=== PATIENT | male | born 1935 | race Caucasian/White ===

== ENCOUNTER 2020-12-12 19:26 | Emergency (ER) | payer OTHER, MEDICARE ==
[2020-12-12] MEDS ORDERED: Sodium Chloride 0.9% 10 ML Syringe FLUSH PRN (19:41)
[2020-12-12] MEDS ORDERED: fentaNYL 100 MCG/2 ML SDV IVPUSH ONE (19:54)
--- NOTE | 2020-12-12 20:04 | EDM.PDOC ---
ED HPI GENERAL MEDICAL PROBLEM - General Stated Complaint: FALL Time Seen by Provider: 12/12/20 19:37 Source of Information: Reports: Patient, Family - History of Present Illness INITIAL COMMENTS - FREE TEXT/NARRATIVE: Brian is an 85 y/o male who is brought to the ER after he fell. He tripped and fell and hit his head on the right frontal region. He has poor vision and he tripped when he ran into a [employer] trailer. No LOC. His daughter reports helping him up, but he could not bear weight on the left leg so she made him come to the ER. He is on Coumadin. Left hip/groin Pain Score (Numeric/FACES): 2 - Related Data Allergies Allergy/AdvReac Type Severity Reaction Status Date / Time No Known Allergies Allergy Verified 12/12/20 21:01 Home Meds: Home Meds . [Unable to Verify Home Med List] 12/12/20 [History] Review of Systems - Review of Systems Review Of Systems: See Below Constitutional: Reports: No Symptoms Eyes: Reports: No Symptoms Ears: Reports: No Symptoms, Clear Discharge Nose: Reports: No Symptoms Mouth/Throat: Reports: No Symptoms Respiratory: Reports: No Symptoms Cardiovascular: Reports: No Symptoms GI/Abdominal: Reports: No Symptoms Genitourinary: Reports: No Symptoms Musculoskeletal: Reports: Joint Pain (left hip) Skin: Reports: No Symptoms Neurological: Reports: No Symptoms Psychiatric: Reports: No Symptoms ED EXAM, GENERAL - Physical Exam Exam: See Below Exam Limited By: No Limitations General Appearance: Alert, WD/WN, No Apparent Distress (Elderly male, pleasant. He is lying quietly on the ER cart.) Eye Exam: Bilateral Eye: PERRL Ears: Hearing Grossly Normal Nose: Normal Inspection, Normal Mucosa Throat/Mouth: Normal Inspection, Normal Lips, Normal Voice Head: Atraumatic, Normocephalic Neck: Normal Inspection, Supple Respiratory/Chest: No Respiratory Distress, Lungs Clear, Chest Non-Tender Cardiovascular: Normal Peripheral Pulses, Regular Rate, Rhythm GI/Abdominal: Normal Bowel Sounds, Soft, Non-Tender (Male) Exam: Deferred Rectal (Males) Exam: Deferred Back Exam: Normal Inspection Extremities: Other (note left leg shortened and left foot is exteranlly rotated when compared to the right, pain with movment) Neurological: Alert, Oriented, CN II-XII Intact, No Motor/Sensory Deficits Psychiatric: Normal Affect Skin Exam: Warm, Dry, Intact, Normal Color Course - Vital Signs Text/Narrative:: 1936 The patient was seen by the GRA[facility]. Labs and Diagnostic Imaging ordered. He was given Fentanyl 25 mcg IVP for pain. 2014 Labs reviewed. CTs pending. 2041 [facility] contacted and notified of patient arrival in ER and diagnosis of left femoral neck fracture. Advised to find appropriate ER for patient transfer. 2049 [facility] contacted. Case presented. Dr Trujillo accepted the patient for direct admission to [facility]. Patient and daughter in agreement with plan of care. 2124 He was given Morphine 2mg IVP prior to departure for [place]. Patient remained stable in the ER while waiting for a room assignment at [facility] then departing with [facility]. Last Recorded V/S: Last Vital Signs Temp 36.3 C 12/12/20 19:26 Pulse 84 12/12/20 19:26 Resp 16 12/12/20 19:26 BP 140/82 12/12/20 19:26 Pulse Ox 99 12/12/20 19:26 - Orders/Labs/Meds Orders: Active Orders 24 hr Category Date Time Status Head wo Cont [CT] Stat Exams 12/12/20 19:43 Taken Hip Min 1V w Pelvis Lt [CR] Stat Exams 12/12/20 19:42 Stop Req Pelvis wo Cont [CT] Stat Exams 12/12/20 19:50 Taken Sodium Chloride 0.9% [Saline Flush] Med 12/12/20 19:41 Active 10 ml FLUSH ASDIRECTED PRN Saline Lock Insert [OM.PC] Stat Oth 12/12/20 19:42 Ordered Medication Orders Sodium Chloride (Sodium Chloride 0.9% 10 Ml Syringe) 10 ml FLUSH ASDIRECTED PRN PRN Reason: Keep Vein Open Labs: Laboratory Tests 12/12/20 12/12/20 12/12/20 Range/Units 19:51 19:51 19:51 WBC 12.5 H (4.0-10.0) x10^3/uL RBC 4.65 (4.5-6.0) x10^6/uL Hgb 14.4 (14.0-18.0) g/dL Hct 42.0 (40.0-52.0) % MCV 90.3 (78.0-93.0) fL MCH 31.0 (26.0-32.0) pg MCHC 34.3 (32.0-36.0) g/dL RDW Coeff of Latosha 12.6 (10.0-15.0) % Plt Count 174 (130-400) x10^3/uL Add Manual Diff Yes Neutrophils % (Manual) 71 (50-80) % Lymphocytes % (Manual) 15 L (25-50) % Reactive Lymphs % 7 H (0) % Monocytes % (Manual) 5 (2-11) % Eosinophils % (Manual) 2 (0-4) % Smudge Cells Few H Platelet Estimate Adequate Giant Platelets Rare H PT 23.0 H (9.9-12.5) SEC INR 2.1 (2.0-3.5) Sodium 141 (136-145) mmol/L Potassium 4.5 (3.5-5.1) mmol/L Chloride 104 (98-107) mmol/L Carbon Dioxide 23 (21-32) mmol/L Anion Gap 18.5 H (5-15) mmol/L BUN 58 H (7-18) mg/dL Creatinine 2.6 H (0.70-1.30) mg/dL Est Cr Clr Drug Dosing TNP Estimated GFR (MDRD) 23 Glucose 113 H (70-99) mg/dL Calcium 8.9 (8.5-10.1) mg/dL Corrected Calcium 9.0 (8.5-10.1) mg/dL Total Bilirubin 0.7 (0.2-1.0) mg/dL AST 16 (15-37) U/L ALT 21 (16-63) U/L Alkaline Phosphatase 96 (46-116) U/L Total Protein 6.9 (6.4-8.2) g/dL Albumin 3.9 (3.4-5.0) g/dL Globulin 3.0 Albumin/Globulin Ratio 1.30 Meds: Medications Generic Name Dose Route Start Last Admin Trade Name Freq PRN Reason Stop Dose Admin Sodium Chloride 10 ml 12/12/20 19:41 Sodium Chloride 0.9% 10 Ml Syringe FLUSH ASDIRECTED PRN Keep Vein Open Discontinued Medications Generic Name Dose Route Start Last Admin Trade Name Freq PRN Reason Stop Dose Admin Fentanyl 25 mcg 12/12/20 19:54 12/12/20 19:58 Fentanyl 100 Mcg/2 Ml Sdv IVPUSH 12/12/20 19:55 25 mcg ONETIME ONE Administration Morphine Sulfate 2 mg 12/12/20 21:25 Morphine 2 Mg/Ml Syringe IVPUSH 12/12/20 21:26 ONETIME ONE - Radiology Interpretation Free Text/Narrative:: CT Pelvis WO=note left femoral neck fracture CT Head WO=results pending upon patient departure for [place] (See final radiology reports) Departure - Departure Time of Disposition: 21:04 Disposition: [facility] Condition: Good Clinical Impression: Chronic anticoagulation Fracture of femoral neck, left Qualifiers: Encounter type: initial encounter Fracture type: closed Qualified Code(s): S72.002A - Fracture of unspecified part of neck of left femur, initial encounter for closed fracture Fall Qualifiers: Encounter type: initial encounter Qualified Code(s): W19.XXXA - Unspecified fall, initial encounter - Discharge Information Referrals: PCP,None [Primary Care Provider] - Forms: Interfacility Transfer EMTALA Additional Instructions: -Transfer to [facility] Sepsis Event Note (ED) - Focused Exam Vital Signs: Vital Signs Temp Pulse Resp BP Pulse Ox 12/12/20 19:26 36.3 C 84 16 140/82 99 - My Orders Last 24 Hours: My Active Orders 12/12/20 19:41 Sodium Chloride 0.9% [Saline Flush] 10 ml FLUSH ASDIRECTED PRN 12/12/20 19:42 Hip Min 1V w Pelvis Lt [CR] Stat Saline Lock Insert [OM.PC] Stat 12/12/20 19:43 Head wo Cont [CT] Stat 12/12/20 19:50 Pelvis wo Cont [CT] Stat - Assessment/Plan Last 24 Hours: My Active Orders 12/12/20 19:41 Sodium Chloride 0.9% [Saline Flush] 10 ml FLUSH ASDIRECTED PRN 12/12/20 19:42 Hip Min 1V w Pelvis Lt [CR] Stat Saline Lock Insert [OM.PC] Stat 12/12/20 19:43 Head wo Cont [CT] Stat 12/12/20 19:50 Pelvis wo Cont [CT] Stat Assessment:: 1)Left Femoral Neck Fracture 2)Fall 3)Hx Anticoagulation Plan: -Transfer to [facility] to Dr Trujillo via [facility]
[2020-12-12 20:18] LABS: ANION GAP 18.5 mmol/L (5-15); CHLORIDE,CL 104 mmol/L (98-107); SODIUM,NA 141 mmol/L (136-145)
[2020-12-12] MEDS ORDERED: Morphine 2 MG/ML SYRINGE IVPUSH ONE (21:25)
--- NOTE | 2020-12-12 21:27 | CT ---
[id number] CT/CT Head WO IV EXAM: CT Head WO IV CLINICAL DATA: TRAUMA ANTICOAGULATED PATIENT COMPARISON: No previous similar exam is available for comparison. FINDINGS: There is no mass or mass effect. There is no hemorrhage or hydrocephalus. There are no extra-axial fluid collections. There are no sites of abnormal attenuation. IMPRESSION: NO PLAIN CT EVIDENCE OF ACUTE INTRACRANIAL PROCESS. Meet Jenkins MD 12/12/20 [id number] Thank you for allowing us to participate in the care of your patient.
--- NOTE | 2020-12-12 21:27 | CT ---
[id number] CT/CT Pelvis WO IV Exam: CT Pelvis WO IV Clinical Data: TRAUMA COMPARISON: NO PREVIOUS SIMILAR EXAM IS AVAILABLE FINDINGS: There is a subcapital fracture of the left hip with varus angulation The pubic rami are intact There is no significant hematoma IMPRESSION: LEFT HIP FRACTURE Meet Jenkins MD 12/12/20 [id number] Thank you for allowing us to participate in the care of your patient.
== END 2020-12-12 21:35 | disposition designated cancer center or children's hospital (05) ==
LOC: VM.ED 19:26
DX: S72.002A Fracture of unspecified part of neck of left femur, initial encounter for closed fracture (principal); Z79.01 Long term (current) use of anticoagulants; W01.10XA Fall on same level from slipping, tripping and stumbling with subsequent striking against unspecified object, initial encounter
CPT/HCPCS: 70450; 72192; 80053; 85025; 85610; 96374; 96375; 99285-25; J2270; J3010

== ENCOUNTER 2020-12-18 09:19 | Inpatient (IN) | payer MEDICARE ==
[2020-12-18] MEDS ORDERED: Bisacodyl 5 MG Tab PO PRN (14:14)
[2020-12-18] MEDS: traMADol 50 MG Tab PO PRN ×2 (15:18→21:26)
[2020-12-18] MEDS: Acetaminophen 325 MG Tab PO PRN ×2 (15:21→21:27)
--- NOTE | 2020-12-19 06:46 | HP ---
CHIEF COMPLAINT: Weakness status post left hip fracture. HISTORY OF PRESENT ILLNESS: The patient is an 85-year-old male who had sustained a left hip fracture on 12/12/2020. He also had hit his head on the right frontal area. He is known to have poor vision. He had run into a [employer] trailer. [facility] and he takes chronic Coumadin. The patient underwent surgical repair of his left hip fracture at [facility] and was hospitalized from 12/12 until 12/18/2020. While hospitalized, he had some anemia due to blood loss and had 1 episode apparently of some choking and after that he was more cautious about eating. Daughter on telephone did comment that he has been a little bit more confused since surgery. I am not familiar with the patient as I have never seen him before, but used to take care of his . MEDICATIONS: The patient is currently on are Tylenol 650 q.6 hours p.r.n., aspirin 81 mg 1 pill daily, bisacodyl 5 mg daily p.r.n. constipation, calcitriol 0.25 mcg 1 pill Tuesday, Tuesday, and Tuesday, Lasix 40 mg daily, metoprolol tartrate 25 mg 1 pill p.o. daily, Prosight 1 pill daily, MiraLAX 17 g daily, Aldactone 12.5 mg 1 pill daily, tramadol 50 mg q.6 hours p.r.n. pain, Coumadin. The patient is uncertain of his regular dosing (he had a recent high reading maybe 2.5 mg Tuesday, , Tuesday, and Tuesday and 5 mg Tuesday, Tuesday, and Tuesday). ALLERGIES: None known. PAST MEDICAL HISTORY: The patient has chronic atrial fibrillation, on chronic anticoagulants. He has had postoperative anemia. He has had chronic kidney disease stage 3B, hypertension, and hypercholesterolemia. He is legally blind. 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 His left eye has 25% vision. The patient had heart failure, unspecified systolic versus diastolic. He has had mitral regurgitation, macular degeneration. PAST SURGICAL HISTORY: He has had left hip replacement. He has had eye surgeries. Otherwise, I am not certain. SOCIAL HISTORY: The patient is . 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. He had been in the [employer] and had been in the [place]. He spends his [place] in [place] and [place] in [place]. He rides a scooter around town for mobility. He does not currently smoke, but previously did, but he does chew tobacco. He does not consume alcohol. He has a son and a daughter, who live in [place]. Code level status is currently code level 1. However, he does not want to be prolonged on machines. He would accept tube feedings if needed. FAMILY HISTORY: Mother of leukemia at age 50. Daughter has had breast cancer. Brother has had lupus. REVIEW OF SYSTEMS: He has been a little bit forgetful. He has poor vision. He has been a little bit weak. He has been a little bit constipated. No burning with urination. Questionable if he has a swallowing problem. He is weak with transfers.He has bruises. Has hip pain from surgery. Family states he may be more confusted. OBJECTIVE: Vital Signs: Show that his weight is 99.1 kg, temperature is 37.1, pulse 87, blood pressure is 121/80, respiratory rate 16, sats are 99%. Skin: He has bruises throughout his body and his right forearm, left flank area, left thigh area. HEENT: His conjunctivae are clear. Pharynx is normal. Mucous membranes are moist. Right eye is blind. Left eye 20% vision per patient. Neck: No anterior cervical lymphadenopathy. No thyromegaly. Heart: Irregularly irregular with 2/6 systolic ejection murmur. Lungs: Have slight crackles in the bases bilaterally. Abdomen: Soft, nontender. Slightly distended. Lower Extremities: Have no edema. Neurologic: He is quite weak with moving, transferring. Speech is slightly slurred. Psychiatric: The patient may be a little bit vagally forgetful. He is a little hard of hearing. IMPRESSION: Would be: 1. Left hip fracture status post surgery. 2. Anemia secondary to blood loss. 3. Legally blind. 4. Weak. 5. Hypertension. 6. Chronic kidney disease stage 3 to 4. 7. Congestive heart failure, unclear if it is diastolic versus systolic. 8. Questionable swallowing difficulty. 9. Questionable confusion. PLAN: The patient will be admitted to swing bed. He will receive physical therapy, occupational therapy and speech consult We will have social media project manager work with family about discharge plans to see if the patient will be able to eventually discharge back to his home versus need other cares. We will also get a speech consult because of concerns with swallowing. We will do a chest x-ray tomorrow morning to see what his baseline status is. He did have lab work done today at [place]. His hemoglobin had been 9.4, creatinine I believe was 2.01, and so we will wait and repeat regular routine blood work on 12/22/2020. The patient will have daily monitoring of his INR to help adjust his Coumadin dosing, which will be managed by pharmacy. Daughter will come up to visit with the patient in person about possibly switching code level status, but for right now he is a code level 1, but it does seem like he is leaning toward code level 2 status. I do anticipate the patient to hopefully be able to be discharged either to home or to assisted services. To note, the patient because of his other comorbidities could have continued problems with those and had difficulty and was baseline as [facility] to us. Also, concerns about if he is using a scooter around town with poor vision and is also a road hazard as well too. GM12/18/2020 17:23:52 MODL: 12/18/2020 22:02:16 /[id number]
[2020-12-19] MEDS: Metoprolol Tartrate 25 MG Tab PO SCH (07:56)
[2020-12-19] MEDS: Aspirin 81 MG Tab.EC PO SCH (07:56)
[2020-12-19] MEDS: Beta-Carotene (Vitamin A) w/Vitamin C & E plus Minerals Tab PO SCH (07:57)
[2020-12-19] MEDS: Furosemide 40 MG Tab PO SCH (07:58)
[2020-12-19] MEDS: Spironolactone 25 MG Tab PO SCH (07:58)
[2020-12-19] MEDS: Polyethylene Glycol 3350 Powder 17 GM Packet PO SCH (07:59)
[2020-12-19] MEDS: Calcitriol 0.25 MCG Cap PO SCH ×2 (08:21→08:22)
[2020-12-19] MEDS: traMADol 50 MG Tab PO PRN ×3 (08:21→20:35)
--- OUTSIDE RECORDS SUMMARY | 2020-12-19 08:22 | XMSREPORT ---
:1935 Author Organization [facility] s Address [address] [place] [address] Care Team Providers Name Role Phone Walt Laurent MD Primary Care Provider Provider, Attributed RESOURCE Attributed Provider Unavailab le Reason for Visit Auth/Cert Status Reason Specialty Diagnoses / Procedures Referred By Hailey li Referred To Contact Encounter Details Date Type Department Care Team Description 12/12/2020 - [facility] Provider, Generic Hosp Proc edure Subcapital fracture 12/18/2020 Encounter [facility] Leland Reyes MD [address] [place] [address] [phone] of femur, left, [address] Lasha Galdamez MD [address] [place] [address] [phone] closed, initial [address] [facility] MD [address] [place] [address] [phone] encounter ([facility]) [place] [address] Edgar Mesa DO [address] [place] [address] [phone] Allergies No Known Active Allergiesdocumented as of this encounter (statuses as of 12/18/2020) Medications Medication Sig Dispensed Refills Start End Date Status Date Multiple Take 1 tablet 0 Active Vitamins-Minerals by mouth 1 (OCUVITE PO) time per day. Magnesium Hydroxide Take by mouth 0 Active (DULCOLAX PO) OTC taken PRN only, can't recall dose aspirin 81 mg Take 1 tablet 30 tablet 0 01/18/20 Ac tive enteric coated (81 mg) by 1 21 tabletIndications: mouth 1 time Chronic atrial per day fibrillation (HCC), Chronic congestive heart failure, unspecified heart failure type (HCC) acetaminophen Take 2 60 tablet 0 Active (TYLENOL) 325 mg tablets (650 1 tabletIndications: mg) by mouth S/P hip every 6 hours hemiarthroplasty as needed for mild pain traMADol (ULTRAM) 50 Take 1 tablet 12 tablet 0 Active mg (50 mg) by 1 tabletIndications: mouth every 6 S/P hip hours as hemiarthroplasty needed for moderate pain or severe pain metoprolol tartrate Take 1 tablet 30 tablet 0 Active (LOPRESSOR) 25 mg (25 mg) by 1 21 tabletIndications: mouth 1 time Chronic atrial per day fibrillation (HCC) warfarin (COUMADIN) *Naveed-Antico 60 tablet 0 Active 5 mg agulation 1 tabletIndications: Clinic S/P hip Managed Pt* hemiarthroplasty, Take as Chronic atrial directed. fibrillation (HCC) (For Insurance Purposes: 2.5-5mg daily dose range) Call [phone] with ?'s. furosemide (LASIX) Take 2 60 tablet 0 01/18/20 A ctive 20 mg tablets (40 08 07 tabletIndications: mg) by mouth Chronic congestive 1 time per heart failure, day unspecified heart failure type (HCC) spironolactone Take 0.5 15 tablet 0 01/22/20 Activ e (ALDACTONE) 25 mg tablets (12.5 08 07 tabletIndications: mg) by mouth Chronic congestive 1 time per heart failure, day unspecified heart failure type (HCC) polyethylene glycol Take 1 packet 7 packet 0 Active (MIRALAX) 17 g by mouth 1 1 21 packetIndications: time per day S/P hip for 7 days hemiarthroplasty Dissolve in 4 to 8 ounces of water, juice, soda, coffee, tea. calcitriol Take 1 15 capsule 0 01/18/20 Active (ROCALTROL) 0.25 mcg capsule (0.25 1 21 capsuleIndications: mcg) by mouth Chronic kidney Every other disease, unspecified day Taken CKD stage only on Tuesday, Tuesday, and Tuesday aspirin 81 mg Take by 0 12/19/19 Discon tinued enteric coated mouth 1 time 21 (R eorder) tablet per day. furosemide (LASIX) Take 1 tablet 90 tablet 0 0 Discontinued 20 mg tablet by mouth 1 5 21 (Reord er) time per day. warfarin (COUMADIN) *Naveed-Antico 60 tablet 0 Discontinued 5 mg tablet agulation 5 21 (Reorder ) Clinic Managed Pt* Take as directed. (For Insurance Purposes: 2.5-5mg daily dose range) Call [phone] with ?'s. metoprolol tartrate Take 1 tablet 90 tablet 0 Discontinued (LOPRESSOR) 25 mg by mouth 1 5 21 ( Reorder) tablet time per day. spironolactone Take 1 tablet 90 tablet 0 12/19/19 D iscontinued (ALDACTONE) 25 mg by mouth 1 5 21 ( Reorder) tablet time per day. 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 mcg tablet time per day error) calcitriol Take 0.25 mcg 0 12/19/19 Disco ntinued (ROCALTROL) 0.25 mcg by mouth 21 (Reorder) capsule Every other day Taken only on Tuesday, Tuesday, and Tuesday documented as of this encounter (statuses as of 12/18/2020) Active Problems Problem Noted Date Subcapital fracture of femur, left, closed, initial en counter 12/12/2020 Hemoglobin decreased 12/30/2015 Overview: Hgb 8.3 2016 Chronic kidney disease (CKD) 01/23/2014 Overview: STage 4, creat ~1.9 Mitral regurgitation 03/30/2013 Overview: Mod to severe Chronic atrial fibrillation 01/05/2012 Overview: In sinus since starting amio CHF (congestive heart failure) 01/05/2012 Overview: Largely secondary to MR and Afib, EF lar stephani intact, 62% in '15 documented as of this encounter (statuses as of 12/18/2020) Immunizations Name Administration Dates Next Due FLU VACCINE HIGH DOSE 65YR+(Fluzone) 04/21/2017, 04/05/2016, 04/16/2015, 04/10/2013, 04/14/2012 Influenza Vaccine,unspecified 04/09/2014 TD,not adsorbed 02/02/1993 documented as of this encounter Social History Tobacco Use Types Packs/Day Years Used Date Former Smoker Cigarettes 1 0 Quit: 2011 Smokeless Tobacco: Current User Chew Tobacco Cessation: Ready to Quit: No; Co unseling Given: No Comments: 12/13/20: 1 can every 5 days Alcohol Use Standard Drinks/Week Comments No 0 (1 standard drink = 0.6 oz pure alcoho l) Alcohol Habits Answer Date Recorded How often do you have a drink containing alcohol? Never 12/13/2020 How many drinks containing alcohol do you have on a typical Not asked day when you are drinking? How often do you have six or more drinks on one occasion? No t asked Sex Assigned at Date Recorded Not on file documented as of this encounter Last Filed Vital Signs Vital Sign Reading Time Taken Comments Blood Pressure 129/78 12/18/2020 7:47 AM CDT Pulse 94 12/18/2020 7:47 AM CDT Temperature 36.7 C (98 F) 12/18/2020 7:47 AM CDT Respiratory Rate 18 12/18/2020 7:47 AM CDT Oxygen Saturation 96% 12/18/2020 7:47 AM CDT Inhaled Oxygen Concentration - - Weight 92.4 kg (203 lb 9.6 oz) 12/12/2020 11:00 PM CDT Height 185.4 cm (6' 1") 12/12/2020 11:00 PM CDT Body Mass Index 26.86 12/12/2020 11:00 PM CDT documented in this encounter Discharge Summaries Not on filedocumented in this encounter Discharge Instructions Shanon Hernandez RN - 12/13/2020 Heart Failure Discharge Instructions Activity: Be as active as possible Break down tasks to small activities to avoid becoming overly tired Talk to your doctor before lifting more than 10 pounds Begin to exercise slowly and increase only as tolerated; refer to your education book Balance activity and rest periods Nutrition: Follow a low sodium (salt) diet Choose no added salt or low sodium foods; choose fresh foods as much as possible Avoid adding salt to food when cooking or at the table Read the nutrition facts labels and avoid foods with more than 300 mg of sodium per serving Medication: Make a list and schedule of the medications you take Keep a current list of your medications with you Take your medications as prescribed Avoid NSAIDs or Non-Steroidal Anti-Inflammatory Drugs (i.e. Advil, Ibuprofen, Motrin, etc.) Self-Care: Weigh yourself and write it down first thing in the morning after you empty your bladder and before you eat or drink Check for swelling of your feet, ankles, legs, and stomach Do your daily exercise If you smoke, stop Keep all follow-up appointments and bring your medications and weight log with you Review the Living Well with Heart Failure booklet for more information on caring for yourself or your loved one at home. Call Your Doctor or Health Inhalation Therapist If You Have: Weight gain of more than 2 pounds overnight or 5 pounds in one week (or whatever weight gain youwere told to report by your doctor) New or increased swelling of your legs or ankles, swelling or pain in your stomach Decrease in amount you urinate Increased shortness of breath Increased cough with yellow or green sputum (mucus) Increased breathing trouble at night (waking up short of breath, needing more pillows to breathe) Feeling much more tired than usual Racing or pounding heart beat Dizziness Go To The Nearest Emergency Room or Call 911 If You Have: Shortness of breath so severe that you cannot catch your breath even while resting [place], foamy sputum (mucus) New problem sleeping; you need to sit straight up to sleep or are not able to sleep due to shortness of breath Severe chest pain that does not resolve with rest or Nitroglycerin New or increased confusion or cannot think clearly A continuous rapid or irregular heart beat Fainting or feeling to dizzy to stand up documented in this encounter Medications at Time of Discharge Medication Sig Dispensed Refills Start Date End Date aspirin 81 mg enteric Take 1 tablet (81 30 tablet 0 021 01/17/2021 coated tabletIndications: mg) by mouth 1 Chronic atrial time per day fibrillation (HCC), Chronic congestive heart failure, unspecified heart failure type (HCC) acetaminophen (TYLENOL) Take 2 tablets 60 tablet 0 12/19/19 21 325 mg tabletIndications: (650 mg) by mouth S/P hip hemiarthroplasty every 6 hours as needed for mild pain traMADol (ULTRAM) 50 mg Take 1 tablet (50 12 tablet 0 12/18 tabletIndications: S/P hip mg) by mouth every hemiarthroplasty 6 hours as needed for moderate pain or severe pain metoprolol tartrate Take 1 tablet (25 30 tablet 0 1 01/17/2021 (LOPRESSOR) 25 mg mg) by mouth 1 tabletIndications: Chronic time per day atrial fibrillation (HCC) warfarin (COUMADIN) 5 mg *[place]-Anticoagula 60 tablet 0 09/2020 tabletIndications: S/P hip tion Clinic hemiarthroplasty, Chronic Managed Pt* Take atrial fibrillation (HCC) as directed. (For Insurance Purposes: 2.5-5mg daily dose range) Call [phone] with ?'s. furosemide (LASIX) 20 mg Take 2 tablets (40 60 tablet 0 09/202001/17/2021 tabletIndications: Chronic mg) by mouth 1 congestive heart failure, time per day unspecified heart failure type (HCC) spironolactone (ALDACTONE) Take 0.5 tablets 15 tablet 0 01/202101/21/2021 25 mg tabletIndications: (12.5 mg) by mouth Chronic congestive heart 1 time per day failure, unspecified heart failure type (HCC) polyethylene glycol Take 1 packet by 7 packet 0 12/19/2020 12/26/2020 (MIRALAX) 17 g mouth 1 time per packetIndications: S/P hip day for 7 days hemiarthroplasty Dissolve in 4 to 8 ounces of water, juice, soda, coffee, tea. calcitriol (ROCALTROL) Take 1 capsule 15 capsule 0 1 01/17/2021 0.25 mcg (0.25 mcg) by capsuleIndications: mouth Every other Chronic kidney disease, day Taken only on unspecified CKD stage Bert[place], Tuesday, and Tuesday Magnesium Hydroxide Take by mouth OTC 0 (DULCOLAX PO) taken PRN only, can't recall dose Multiple Vitamins-Minerals Take 1 tablet by 0 (OCUVITE PO) mouth 1 time per day. documented as of this encounter Progress Notes Danny Griffin PA - 12/18/2020 9:38 AM CDT Ortho Progress Note Brice Palmer is a 85yr male here for 3 Days Post-Op, Procedure(s): LEFT ALLEN HIP ARTHROPLASTY. Patient of BP 129/78 | Pulse 94 | Temp 98 F (36.7 C) | Resp 18 | Ht 1.854 m (6' 1") | Wt 92.4 kg (203 lb 9.6 oz) | SpO2 96% | BMI 26.86 kg/m Maximum Temperatures (last 24 hours) Temperature Maximum Max Temp 98.4 F (36.9 C) { Lab Results Component Value Date HEMOGLOBIN 9.4 (L) 12/18/2020 Patient doing ok, complains of mild pain. The patient denies nausea. The wound has No drainage. Compartments soft and non-tender. Distal NV intact. Impression: Procedure(s): LEFT ALLEN HIP ARTHROPLASTY Past Medical History: Diagnosis Date Atrial fibrillation (HCC) 01/05/2012 CHF (congestive heart failure) (HCC) 01/05/2012 Chronic kidney disease (CKD) 01/23/2014 Mitral regurgitation 03/30/2013 Plan: Doing well with Physical and Occupational Therapy today. Continue with Care Plan. Plan to rehab in [place] today. Edgar Spencer DO - 12/17/2020 10:56 AM CDT DAILY PROGRESS NOTE Brief History: Brice is an 85-year-old male with a past medical history of chronic atrial fibrillation on anticoagulation with warfarin, unspecified congestive heart failure, mitral regurgitation, chronic kidney disease stage III who was admitted to [facility] on 12/12/2020 for further evaluation and m anagement of left subcapital acute femoral fracture secondary to mechanical fall. Patient was taken to [place] emergency department after suffering a fall. He reported that he tripped and hit his head on a camper which caused him to become disoriented and then fell onto his left leg. Evaluation in the emergency department consisted of CT scan of the pelvis which revealed the above-noted fracture. CT head was performed on admission to the outside emergency department was found to be unremarkable. Patient was noted to have a supratherapeutic INR which was reversed by multiple administrations of vitamin K per report. He successfully underwent left hip hemiarthroplasty on 12/15/2020. Physical and Occupational Therapy were consulted postoperatively. ASSESSMENT & PLAN: Acute left subcapital femoral fracture status post left hemiarthroplasty on 12/15/2020 Above-noted fracture secondary to mechanical fall Postoperative anemia Postoperative mild leukocytosis Patient doing well postoperatively. Reports his pain is quite mild. Continue postop care as persurgical team. Hemoglobin down which is expected postoperatively however stable from the day prior. Continue to trend daily. Leukocytosis from yesterday resolved, likely due to postop state. No evidence of fevers or chills at this time. Chronic atrial fibrillation Rate currently controlled. Restart home warfarin. INR currently 1.7 therefore bridging not strongly indicated at this time. This was discussed with the patient and his daughter at bedside today.Continue home metoprolol for rate control. Chronic kidney disease stage III Hypertension Hyperchloremia secondary to IV fluid administration No evidence of acute kidney injury per medical chart review and after discussion with the patient. His daughter reports that his normal estimated GFR is in the "30s." Patient has been noted to have an estimated GFR at this baseline during his entire hospital course. Continue home Lasix however co ntinue to hold spironolactone due to borderline high potassium. Potassium is improved today. Hyperchloremia improved. Legally blind CODE STATUS: Full DVT prophylaxis: Warfarin per above Disposition: Admitted as an inpatient. Physical therapy and Occupational Therapy recommended SNF/TCU. Likely able to DC to [place] tomorrow. INTERVAL HISTORY: No significant acute events overnight. Patient once again appears comfortable on exam. Denies any new concerns. Grand-daughter at bedside would like to watch his swallowing closely given he had somedifficulty with a piece of cantaloupe yesterday. No SOB, cough, fevers, or chills. OBJECTIVE: Current Vital Signs Temp: 94 F (34.4 C) BP: 121/71 Pulse: 88 O2 Device: Room Air O2 Flow Rate (L/min): 4 l/min Resp: 16 Pain Ratin (out of 10) Weight: 92.4 kg (203 lb 9.6 oz) SpO2: 97 % Physical Exam Constitutional: General: He is not in acute distress. Appearance: He is not diaphoretic. HENT: Head: Normocephalic and atraumatic. Mouth/Throat: Pharynx: No oropharyngeal exudate. Eyes: Conjunctiva/sclera: Conjunctivae normal. Cardiovascular: Rate and Rhythm: Normal rate and regular rhythm. Heart sounds: Normal heart sounds. No murmur heard. Pulmonary: Effort: Pulmonary effort is normal. No respiratory distress. Breath sounds: Normal breath sounds. No wheezing or rales. Abdominal: General: There is no distension. Palpations: Abdomen is soft. Tenderness: There is no abdominal tenderness. Musculoskeletal: General: Swelling and tenderness present. Cervical back: Normal range of motion and neck supple. Lymphadenopathy: Cervical: No cervical adenopathy. Skin: General: Skin is warm and dry. Findings: No erythema or rash. Neurological: Mental Status: He is alert and oriented to person, place, and time. Motor: No abnormal muscle tone. Diagnostics and Labs Relevant diagnostic, laboratory and radiological studies have been reviewed in the Electronic Medical Record. Edgar Mesa DO [facility] rabillDanny PA - 12/17/2020 9:09 AM CDT Ortho Progress Note Brice Palmer is a 85yr male here for 2 Days Post-Op, Procedure(s): LEFT ALLEN HIP ARTHROPLASTY. Patient of BP 121/71 | Pulse 88 | Temp 94 F (34.4 C) | Resp 16 | Ht 1.854 m (6' 1") | Wt 92.4 kg (203 lb 9.6 oz) | SpO2 97% | BMI 26.86 kg/m Maximum Temperatures (last 24 hours) Temperature Maximum Max Temp 97.6 F (36.4 C) { Lab Results Component Value Date HEMOGLOBIN 9.4 (L) 12/17/2020 Patient doing ok, complains of mild pain. The patient denies nausea. The wound has No drainage. Compartments soft and non-tender. Distal NV intact. Impression: Procedure(s): LEFT ALLEN HIP ARTHROPLASTY Past Medical History: Diagnosis Date Atrial fibrillation (HCC) 01/05/2012 CHF (congestive heart failure) (HCC) 01/05/2012 Chronic kidney disease (CKD) 01/23/2014 Mitral regurgitation 03/30/2013 Plan: Slowly improving with Physical and Occupational Therapy today. Continue with Care Plan. Working on discharge placement. Danny Vega PA - 12/16/2020 2:13 PM CDT Ortho Progress Note Brice Palmer is a 85yr male here for 1 Day Post-Op, Procedure(s): LEFT ALLEN HIP ARTHROPLASTY. Patient of BP 105/61 | Pulse 78 | Temp 97.5 F (36.4 C) | Resp 16 | Ht 1.854 m (6' 1") | Wt 92.4 kg (203 lb 9.6 oz) | SpO2 96% | BMI 26.86 kg/m Maximum Temperatures (last 24 hours) Temperature Maximum Max Temp 98.3 F (36.8 C) { Lab Results Component Value Date HEMOGLOBIN 9.7 (L) 12/16/2020 Patient doing ok, complains of mild pain. The patient denies nausea. The wound has No drainage. Compartments soft and non-tender. Distal NV intact. Impression: Procedure(s): LEFT ALLEN HIP ARTHROPLASTY Past Medical History: Diagnosis Date Atrial fibrillation (HCC) 01/05/2012 CHF (congestive heart failure) (HCC) 01/05/2012 Chronic kidney disease (CKD) 01/23/2014 Mitral regurgitation 03/30/2013 Plan: Doing well with Physical and Occupational Therapy today. Continue with Care Plan. Working on placement. Edgar Spencer DO - 12/16/2020 8:33 AM CDT DAILY PROGRESS NOTE Brief History: Brice is an 85-year-old male with a past medical history of chronic atrial fibrillation on anticoagulation with warfarin, unspecified congestive heart failure, mitral regurgitation, chronic kidney disease stage III who was admitted to [facility] on 12/12/2020 for further evaluation and m anagement of left subcapital acute femoral fracture secondary to mechanical fall. Patient was taken to [place] emergency department after suffering a fall. He reported that he tripped and hit his head on a camper which caused him to become disoriented and then fell onto his left leg. Evaluation in the emergency department consisted of CT scan of the pelvis which revealed the above-noted fracture. CT head was performed on admission to the outside emergency department was found to be unremarkable. Patient was noted to have a supratherapeutic INR which was reversed by multiple administrations of vitamin K per report. He successfully underwent left hip hemiarthroplasty on 12/15/2020. Physical and Occupational Therapy were consulted postoperatively. ASSESSMENT & PLAN: Acute left subcapital femoral fracture status post left hemiarthroplasty on 12/15/2020 Above-noted fracture secondary to mechanical fall Postoperative anemia Postoperative mild leukocytosis Patient doing well postoperatively. Reports his pain is quite mild at this time. Continue postop care as per surgical team. Hemoglobin down to 9.7 from 11.4 which is expected postoperatively. Continue to trend daily. Patient has mild leukocytosis likely secondary to inflammation from procedure. Continue to monitor. No evidence of fevers or chills at this time. Chronic atrial fibrillation Rate currently controlled. Restart home warfarin. INR currently 1.7 therefore bridging not strongly indicated at this time. This was discussed with the patient and his daughter at bedside today.Continue home metoprolol for rate control. Chronic kidney disease stage III Hypertension Hyperchloremia secondary to IV fluid administration No evidence of acute kidney injury per medical chart review and after discussion with the patient. His daughter reports that his normal estimated GFR is in the "30s." Patient has been noted to have an estimated GFR at this baseline during his entire hospital course. Restart his home Lasix today h owever hold spironolactone due to borderline high potassium. Discontinue IV fluids and have him take in oral nutrition. Legally blind CODE STATUS: Full DVT prophylaxis: Warfarin per above Disposition: Admitted as an inpatient. Physical therapy and Occupational Therapy consultations pending. Case management following. INTERVAL HISTORY: No significant acute events overnight. Patient appears comfortable today. He reports only mild pain. Daughter at bedside today and updated on cares. Patient verbalizes no significant concerns today. He is wondering about getting chewing tobacco in the hospital however we discussed that we have other nicotine replacement protocol medications available and cannot order chewing tobacco. OBJECTIVE: Current Vital Signs Temp: 98.3 F (36.8 C) BP: 127/68 Pulse: 90 O2 Device: Room Air O2 Flow Rate (L/min): 4 l/min Resp: 97 Pain Ratin (out of 10) Weight: 92.4 kg (203 lb 9.6 oz) SpO2: 98 % Physical Exam Constitutional: General: He is not in acute distress. Appearance: He is not diaphoretic. HENT: Head: Normocephalic and atraumatic. Mouth/Throat: Pharynx: No oropharyngeal exudate. Eyes: Conjunctiva/sclera: Conjunctivae normal. Cardiovascular: Rate and Rhythm: Normal rate and regular rhythm. Heart sounds: Normal heart sounds. No murmur heard. Pulmonary: Effort: Pulmonary effort is normal. No respiratory distress. Breath sounds: Normal breath sounds. No wheezing or rales. Abdominal: General: There is no distension. Palpations: Abdomen is soft. Tenderness: There is no abdominal tenderness. Musculoskeletal: General: Swelling and tenderness present. Cervical back: Normal range of motion and neck supple. Lymphadenopathy: Cervical: No cervical adenopathy. Skin: General: Skin is warm and dry. Findings: No erythema or rash. Neurological: Mental Status: He is alert and oriented to person, place, and time. Motor: No abnormal muscle tone. Diagnostics and Labs Relevant diagnostic, laboratory and radiological studies have been reviewed in the Electronic Medical Record. Edgar Mesa DO [facility] DWeismael, Monroe Iverson MD - 12/15/2020 5:48 AM CDT Assessment/Plan: #Left subcapital femoral fracture s/p mechanicalfall #H/o Afib chronically anticoagulated on coumadin Patient presents after mechanical fall likely sustained due to his poor vision. CT of the pelvis shows a left femur fracture. Chadsvasc 4, INR 12/13 was 3. RCRI: Class I risk, 3.9%, 30-day risk of , AL or cardiac arrest. Warfarin held and 5mg vit K angel 12/13. 12/14 INR is 2.2. Additional IV vit K 5mg given. -Ortho consulted appreciate recs -Plan OR today -IVF 100ml/hr while NPO -Pain control -PT/OT #JOON on CKD -baseline Cr unknown Cr 1.83 on 12/15 - improved. -Daily BMP Chronic medical conditions: -Atrial fibrillationholding warfarin. Continue metoprolol tartrate 25mg daily -Heart failure, unspecified systolic versus diastolicholding Lasix -Mitral regurgitation -Macular degeneration DVT prophylaxis: SCD Therapies: PT/OT Code Status: Full Disposition: Pending recovery from operative repair of left femur. Chief Complaint: From H&P: Brice Palmer is a 85-year-old male who presents as a direct admit from [place] due to a left femur fracture. Past medical history is significant for chronic atrial fibrillationon Coumadin, heart failure, chronic kidney disease (unsure of stage, macular degeneration, and mitral regurgitation. Patient was taken to the [place] ED after a fall. He tripped and hit his head on a camper which caused him to become disoriented and then he fell onto his left leg. Patient was unable to bear weight afterwards. He thinks his fall was due to to his poor vision secondary to his macular degeneration.He is on Coumadin long-term for atrial fibrillation. In the ED, vital signs were stable. Lab work was significant for WBC 12.5, hemoglobin 14.4, INR 2.1.Creatinine is 2.6 (unclear of baseline) the remainder of the CMP was within normal limits. CT of thepelvis showed subcapital femur fracture on the left hip with varus angulation. No pelvic fracture seen. CT head was done since the patient had a fall and is on Coumadin. Report is pending. He was transferred to [facility] for further evaluation and management. Patient uses smokeless tobacco. It tin of chewing tobacco lasts in 5 days. 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 Denies any problems with anesthesia. He denies any recent upper respiratory symptoms including cough, shortness of breath, fever, chills, s neezing, or sore throat. He also denies any chest pain. Subjective: No acute events reported overnight. Pt says he is doing better today, wonders when OR time is. ROS: Patient denies any chest pain, dyspnea, abdominal pain, nausea, vomiting, headache or dizziness. Objective: Vital signs in last 24 hours: Vitals: 12/14/20 1510 12/14/20 1906 12/14/20 1917 12/15/20 0043 BP: 130/85 108/64 111/61 105/74 Pulse: 82 64 85 84 Resp: 16 16 18 17 Temp: 97.5 F (36.4 C) 97.8 F (36.6 C) 98.3 F (36.8 C) 98.2 F (36.8 C) SpO2: 98% 98% 99% 97% Weight: Height: Weight change: Vitals Min/Max Last 24 Hours Vital Signs Min/Max (last 24 hours) Flowsheet Row Name Min Max Temp 97.5 F (36.4 C) 98.3 F (36.8 C) BP: Systolic 105 130 BP: Diastolic 61 85 Pulse 64 85 Resp 16 18 SpO2 95 % 99 % Intake and Output Last 24 Hours 12/14 0700 - 12/15 0659 In: 1830 Out: 600 Physical Exam: General Appearance: alert, well appearing, and in no distress Mental Status: alert and appropriately responsive Chest: b/l good air entry, clear to auscultation, no wheezes, rales or rhonchi, symmetric air entry Heart: normal rate, regular rhythm, normal S1, S2, no murmur Abdomen: soft, nontender, nondistended, bowel sounds heard Neurological: normal speech, no gross sensory or motor deficits noted Extremities: No pedal edema, no tenderness Associated attestation - Zahida Edmond MD - 12/15/2020 2:00 PM CDT I discussed the patient with the resident and personally interviewed and examined the patient. I verified in the medical record all resident documentation/findings, including history, physical exam, and medical decision making, and I agree with the resident's documentation. Note the following additions/corrections: Patient seen post-operatively, still very groggy. Able to follow limited commands. Pain control adequate. NOTE PATIENT IS BLIND - asked nursing to place sign in room so all staff aware of need for room/table to be set up correctly for someone who is vision impaired. MD Jony Cano Michael A, MD - 12/14/2020 11:50 AM CDT ORTHO progress note. Brice Palmer is a 85yr old male admitted on 12/12/2020 10:53 PM Status Post: Procedure(s): LEFT ALLEN HIP ARTHROPLASTY Patient doing ok, complains of mild pain with current meds. The patient denies nausea. Lab Results Component Value Date HEMOGLOBIN 12.5 (L) 12/14/2020 Current Vital Signs Temp: 97.6 F (36.4 C) BP: 120/65 Pulse: 79 O2 Device: Room Air Resp: 18 Pain Ratin (out of 10) Weight: 92.4 kg (203 lb 9.6 oz) SpO2: 96 % Gen - NAD, A/O x 3 Left LE - TTP over hip, SILT dp/sp/s/s, able to flex/ext foot, foot warm/well perfused Plan: -Plan for OR for left hip hemiarthroplasty once medically optimized. -NPO at midnight -Please correct INR Ortho Pre-Op Note Dx: Left displaced femoral neck fracture Plan: Left hip hemiarthroplasty and any other indicated procedures Risks/Benefits/Alternatives to surgery and post-op rehab plan were discussed with the patient and his family. Risks include but not limited to: Bleeding, possibility of transfusion, infection, injury to associated structures, DVT/PE, failure of procedure, reoperation, implant failure, persistent jointpain or stiffness. Loss of life/limb was discussed with the patient and his family. All questions answered, no guarantees implied or given Jose Luis Borges MD TMonroe Fallon MD - 12/14/2020 5:39 AM CDT Assessment/Plan: #Left subcapital femoral fracture s/p mechanicalfall #H/o Afib chronically anticoagulated on coumadin Patient presents after mechanical fall likely sustained due to his poor vision. CT of the pelvis shows a left femur fracture. Chadsvasc 4, INR 12/13 was 3. RCRI: Class I risk, 3.9%, 30-day risk of , AL or cardiac arrest. Warfarin held and 5mg vit K angel 12/13. 12/14 INR is 2.2. -Ortho consulted appreciate recs -Pt will go for surgery when INR <1.7 - daily INR -IV vit K 5mg today, recheck INR this afternoon -IVF 125ml/hr while NPO -Pain control -NPO -PT/OT Chronic medical conditions: -Atrial fibrillationholding warfarin. Continue metoprolol tartrate 25mg daily -Heart failure, unspecified systolic versus diastolicholding Lasix -Chronic kidney diseaseunclear baseline. Continue to monitor Cr. -Mitral regurgitation -Macular degeneration DVT prophylaxis: SCD Therapies: PT/OT Code Status: Full Disposition: Pending orthopedic intervention for left femoral fracture when INR amenable. Chief Complaint: From H&P: Brice Palmer is a 85-year-old male who presents as a direct admit from [place] due to a left femur fracture. Past medical history is significant for chronic atrial fibrillationon Coumadin, heart failure, chronic kidney disease (unsure of stage, macular degeneration, and mitral regurgitation. Patient was taken to the [place] ED after a fall. He tripped and hit his head on a camper which caused him to become disoriented and then he fell onto his left leg. Patient was unable to bear weight afterwards. He thinks his fall was due to to his poor vision secondary to his macular degeneration.He is on Coumadin long-term for atrial fibrillation. In the ED, vital signs were stable. Lab work was significant for WBC 12.5, hemoglobin 14.4, INR 2.1.Creatinine is 2.6 (unclear of baseline) the remainder of the CMP was within normal limits. CT of thepelvis showed subcapital femur fracture on the left hip with varus angulation. No pelvic fracture seen. CT head was done since the patient had a fall and is on Coumadin. Report is pending. He was transferred to [facility] for further evaluation and management. Patient uses smokeless tobacco. It tin of chewing tobacco lasts in 5 days. 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 Denies any problems with anesthesia. He denies any recent upper respiratory symptoms including cough, shortness of breath, fever, chills, s neezing, or sore throat. He also denies any chest pain. Subjective: No acute events reported overnight. Pt says he has been better, wonders when he is going to surgery. ROS: Patient denies any chest pain, dyspnea, abdominal pain, nausea, vomiting, headache or dizziness. Objective: Vital signs in last 24 hours: Vitals: 12/13/20 0726 12/13/20 1139 12/13/20 1518 12/13/20 1920 BP: 120/64 103/68 104/66 133/71 Pulse: 80 107 64 80 Resp: 16 16 16 16 Temp: 98 F (36.7 C) 98.2 F (36.8 C) 98 F (36.7 C) 98.2 F (36.8 C) SpO2: 99% 96% (!) 88% 90% Weight: Height: Weight change: Vitals Min/Max Last 24 Hours Vital Signs Min/Max (last 24 hours) Flowsheet Row Name Min Max Temp 98 F (36.7 C) 98.2 F (36.8 C) BP: Systolic 103 133 BP: Diastolic 64 76 Pulse 64 107 Resp 16 16 SpO2 (!) 88 % 99 % MAP (mm Hg) 87 mm Hg 87 mm Hg Intake and Output Last 24 Hours 12/12 0700 - 12/13 0659 In: 625 Out: 320 Physical Exam: General Appearance: alert, well appearing, and in no distress Mental Status: alert and appropriately responsive Chest: b/l good air entry, clear to auscultation, no wheezes, rales or rhonchi, symmetric air entry Heart: normal rate, regular rhythm, normal S1, S2, no murmur Abdomen: soft, nontender, nondistended, bowel sounds heard Neurological: normal speech, no gross sensory or motor deficits noted Extremities: No pedal edema, no tenderness, able to wiggle toes, good pedal pulses Associated attestation - Lasha Galdamez MD - 12/14/2020 11:12 PM CDT I have seen and discussed his care with ; I personally interviewed and examined thepatient. I agree with the diagnosis and management as noted by . Lasah Galdamez MD, MPH, FACC, FSVM, FAAFP FM-Faculty Hospitalist/ Vascular Medicine, [facility] Clinical Fountain Attendant, [facility] [employer] Flaquito Hussein MD - 12/13/2020 7:09 AM CDT Images from the original note were not included. Inpatient Progress Note ROOM/BED: [facility]/ PCP: René Laurent MD Admission date: 12/12/2020 LOS: 0 Assessment/ Plan #Left subcapital femoral fracture s/p mechanical fall #H/o Afib chronically anticoagulated on coumadin Chadsvasc 4, INR 12/13 was 3 -Ortho consulted appreciate recs -Pt will go for surgery when INR <1.7. -Holding Coumadin, 5Mg Vit K given today, repeat INR in AM -Pain control -NPO after midnight Chronic medical conditions: #Atrial fibrillationholding warfarin. Continue metoprolol #Heart failure, unspecified systolic versus diastolicholding Lasix and spironolactone #Chronic kidney diseaseunclear baseline. Continue to monitor #Mitral regurgitation #Macular degeneration CODE STATUS: Full Code DVT Prophylaxis: scd Therapies: PT/OT Disposition: home pending medical stability Diet: NPO at midnight Flaquito Hussein MD PGY3-FM #[id number] HPI / History / ROS Interval History No acute overnight events. Denies any . No new concerns or complaints. Reports that hip pain has been adequately controlled. Physical / Results Physical Exam/Vitals Vital signs: Blood pressure 125/76, pulse 80, temperature 98.2 F (36.8 C), resp. rate 16, unntsn772.4 cm (73"), weight 92.4 kg (203 lb 9.6 oz), SpO2 96 %. Vital Signs Min/Max (last 24 hours) Flowsheet Row Name Min Max Temp 98.2 F (36.8 C) 98.2 F (36.8 C) BP: Systolic 125 125 BP: Diastolic 76 76 Pulse 80 80 Resp 16 16 SpO2 96 % 96 % MAP (mm Hg) 87 mm Hg 87 mm Hg Physical Exam: Physical Exam Constitutional: General: He is not in acute distress. Appearance: Normal appearance. He is not ill-appearing. HENT: Head: Normocephalic and atraumatic. Cardiovascular: Rate and Rhythm: Normal rate. Pulmonary: Effort: No respiratory distress. Abdominal: General: There is no distension. Musculoskeletal: Right lower leg: No edema. Left lower leg: No edema. Neurological: General: No focal deficit present. Mental Status: He is alert. Psychiatric: Mood and Affect: Mood normal. Behavior: Behavior normal. Patient Lines/Drains/Airways Status Active Lines Name: Placement date: Placement time: Site: Days: Peripheral IV 12/12/20 Forearm Distal;Left;Posterior 12/12/201999 Forearm less than 1 Intake and Output Last 24 Hours 12/12 0700 - 12/13 0659 In: 625 Out: 320 [Urine:320] Intake and Output Since Admit 10/29 1900 - 12/13 1859 In: 625 Out: 320 [Urine:320] Net: 305 Weight change: Medications Current Facility-Administered Medications Medication Dose Route Frequency Provider Last Rate Last Admin sodium chloride 0.9% IV solution IV Continuous Marielena Siegel MD 100 mL/hr at 12/13/20 0145 Already Infusing at 12/13/20 0145 sodium chloride 0.9% flush (adult) 10 mL 10 mL IV 2 times a day and prn Leland Reyes MD ondansetron (ZOFRAN) injection solution 4 mg 4 mg IV Every 4 hours prn Leland Reyes MD sodium chloride 0.9% IV solution IV Continuous Leland Reyes MD 100 mL/hr at 358 New Bag at 12/12/20 0018 metoprolol tartrate (LOPRESSOR) tablet 25 mg 25 mg Oral daily Marielena Siegel MD melatonin tablet 3 mg 3 mg Oral at bedtime Marielena Siegel MD 3 mg at 12/13/20 0005 nalOXone (NARCAN) injection solution (vial) 0.4 mg 0.4 mg Injection Every 2 minutes prn Marielena Siegel MD nalOXone (NARCAN) injection solution (vial) 0.2 mg 0.2 mg Injection Every 2 minutes prn Marielena Siegel MD acetaminophen (TYLENOL) tablet 650 mg 650 mg Oral Every 4 hours prn Marielena Siegel MD 650 mg at 12/13/20 0005 senna-docusate sodium (SENOKOT-S;PERICOLACE) tablet 2 tablet 2 tablet Oral 2 times a day prn Marielena Siegel MD And bisacodyl (DULCOLAX) suppository 10 mg 10 mg Rectal 1 time a day prn Marielena Siegel MD And docusate sodium (THEREVAC-SB MINI;ENEMEEZ MINI) 283 MG enema 1 enema 1 enema Rectal 1 time a day prn Marielena Siegel MD calcium carbonate (TUMS) chewable tablet 1,000 mg 1,000 mg Oral Every 4 hours prn Marielena Siegel MD acetaminophen (TYLENOL) tablet 650 mg 650 mg Oral Every 6 hours prn Marielena Siegel MD Or acetaminophen (TYLENOL) suppository 650 mg 650 mg Rectal Every 6 hours prn Tresa Siegel MD oxyCODONE (OXY-IR) tablet 5 mg 5 mg Oral Every 6 hours prn Marielena Siegel MD 5 mg at12/13/20 0252 Or oxyCODONE (OXY-IR) tablet 10 mg 10 mg Oral Every 6 hours prn Marielena Siegel MD HYDROmorphone (DILAUDID) injection solution (conc: 0.5 mg/0.5mL) 0.5 mg 0.5 mg IV Every 2 hoursprn Marielena Siegel MD [START ON 12/14/2020] polyethylene glycol (MIRALAX) packet 1 packet 1 packet Oral Daily Marielena Siegel MD Labs/Imaging Labs (Last day) 12/13/20 05 - 12/13/20 05 CBC 12/13/20 0539 CBC WBC 4.0-11.0 (K/uL) 12.1 RBC 4.40-5.80 (M/uL) 4.45 Hemoglobin 13.5-17.5 (g/dL) 13.1 Hematocrit 40.0-50.0 (%) 40.2 MCV 80.0-98.0 (fL) 90.3 MCH 25.5-34.0 (pg) 29.4 MCHC 31.5-36.5 (g/dL) 32.6 RDW-CV 11.5-15.5 (%) 12.4 RDW-SD 35.5-50.0 (fl) 40.6 Platelet Count 140-400 (K/uL) 143 MPV 8.5-12.0 (fL) 11.5 12/13/20 0539 - 12/13/20 0539 CHEMISTRY 12/13/20 0539 12/13/20 0539 CHEMISTRY Glucose 70-100 (mg/dL) 105 Sodium 135-145 (meq/L) 139 Potassium 3.5-5.3 (meq/L) 4.4 Chloride 99-110 (meq/L) 109 CO2 20-29 (meq/L) 19 Anion Gap with K 6-20 (meq/L) 15 BUN 6-22 (mg/dL) 56 Creatinine 0.80-1.30 (mg/dL) 2.18 BUN/Creatinine Ratio 10.0-25.0 25.7 Calcium 8.5-10.5 (mg/dL) 9.0 Corrected Calcium 8.5-10.5 (mg/dL) 9.2 Phosphorus 2.5-4.5 (mg/dL) 2.9 Magnesium 1.8-2.4 (mg/dL) 2.3 Albumin 3.5-5.0 (g/dL) 3.7 eGFR >=60 (mL/min/1.73m2) 35 eGFR Non- >=60 (mL/min/1.73m2) 29 12/13/20 0539 - 12/13/20 0539 GENERAL COAGULATION 12/13/20 0539 GENERAL COAGULATION Protime 12.0-14.5 (secs) 28.7 INR 2.0-3.5 3.0 12/13/20 0539 - 12/13/20 0539 OTHER 12/13/20 0539 OTHER Age (Years) 85 All labs and imaging were personally reviewed and pertinent findings are discussed in the history and assessment. Associated attestation - Lasha Galdamez MD - 12/13/2020 3:52 PM CDT I have seen and discussed his care with ; I personally interviewed and examinedthe patient. I agree with the diagnosis and management as noted by . Lasha Galdamez MD, MPH, FACC, FS, FAAFP -Faculty Hospitalist/ Vascular Medicine, [facility] Clinical Fountain Attendant, [facility] [employer] documented in this encounter H&P Notes Marielena Siegel MD - 12/12/2020 11:05 PM CDT INTERNAL MEDICINE H&P NOTE NAME: Brice Palmer is a 85yr old male 1935 PCP: René Laurent MD Admit Date: 12/12/2020 Referring Provider: No ref. provider found Location: 12/16 Impression / Plan Acute Medical Conditions: #Left subcapital femoral fracture #Mechanical Fall #On Coumadin Assessment: Patient presents after mechanical fall likely sustained due to his poor vision. CT of the pelvis shows a left femur fracture. Plan: -[facility] -Consult orthopedics. Appreciate the recommendations -Pain regimen with oxycodone 5/10 with Dilaudid for breakthrough -Regular diet now. NPO at midnight -Hold warfarin. Check INR in the morning. -IV fluids with NS at 100 mL/hour -PT/OT -DVT prophylaxis: SCDs Preoperative Evaluation: METs scoring: >4, indicating good functional status RCRI: Class I risk, 3.9%, 30-day risk of , AL or cardiac arrest. Respiratory status: denies recent cough, cold, flu, asthma, COPD or prior reaction to anesthesia. Patient is medical optimized for surgical procedure with anesthesia. Chronic medical conditions: #Atrial fibrillationholding warfarin. Continue metoprolol #Heart failure, unspecified systolic versus diastolicholding Lasix #Chronic kidney diseaseunclear baseline. Continue to monitor #Mitral regurgitation #Macular degeneration CODE STATUS: Full Code DVT Prophylaxis: SCDs Therapies: PT/OT Disposition: Med/surg Diet: NPO at midnight Chief Complaint Fall, leg pain HPI Brice Palmer is a 85-year-old male who presents as a direct admit from [place] due to a left femur fracture. Past medical history is significant for chronic atrial fibrillation on Coumadin, heart failure, chronic kidney disease (unsure of stage, macular degeneration, and mitral regurgitation. Patient was taken to the [place] ED after a fall. He tripped and hit his head on a camper which caused him to become disoriented and then he fell onto his left leg. Patient was unable to bear weight afterwards. He thinks his fall was due to to his poor vision secondary to his macular degeneration.He is on Coumadin long-term for atrial fibrillation. In the ED, vital signs were stable. Lab work was significant for WBC 12.5, hemoglobin 14.4, INR 2.1.Creatinine is 2.6 (unclear of baseline) the remainder of the CMP was within normal limits. CT of thepelvis showed subcapital femur fracture on the left hip with varus angulation. No pelvic fracture seen. CT head was done since the patient had a fall and is on Coumadin. Report is pending. He was transferred to [facility] for further evaluation and management. Patient uses smokeless tobacco. It tin of chewing tobacco lasts in 5 days. 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 Denies any problems with anesthesia. He denies any recent upper respiratory symptoms including cough, shortness of breath, fever, chills, s neezing, or sore throat. He also denies any chest pain. Medications Current Facility-Administered Medications Medication Dose Route Frequency Provider Last Rate Last Admin sodium chloride 0.9% IV solution IV Continuous Marielena Siegel MD sodium chloride 0.9% flush (adult) 10 mL 10 mL IV 2 times a day and prn Leland Reyes MD ondansetron (ZOFRAN) injection solution 4 mg 4 mg IV Every 4 hours prn Leland Reyes MD sodium chloride 0.9% IV solution IV Continuous Leland Reyes MD 100 mL/hr at 358 New Bag at 12/12/20 7969 metoprolol tartrate (LOPRESSOR) tablet 25 mg 25 mg Oral daily Marielena Siegel MD melatonin tablet 3 mg 3 mg Oral at bedtime Marielena Siegel MD 3 mg at 12/13/20 0005 nalOXone (NARCAN) injection solution (vial) 0.4 mg 0.4 mg Injection Every 2 minutes prn Marielena Siegel MD nalOXone (NARCAN) injection solution (vial) 0.2 mg 0.2 mg Injection Every 2 minutes prn Marielena Siegel MD acetaminophen (TYLENOL) tablet 650 mg 650 mg Oral Every 4 hours prn Marielena Siegel MD 650 mg at 12/13/20 0005 senna-docusate sodium (SENOKOT-S;PERICOLACE) tablet 2 tablet 2 tablet Oral 2 times a day prn Marielena Siegel MD And bisacodyl (DULCOLAX) suppository 10 mg 10 mg Rectal 1 time a day prn Marielena Siegel MD And docusate sodium (THEREVAC-SB MINI;ENEMEEZ MINI) 283 MG enema 1 enema 1 enema Rectal 1 time a day prn Marielena Siegel MD calcium carbonate (TUMS) chewable tablet 1,000 mg 1,000 mg Oral Every 4 hours prn Marielena Siegel MD acetaminophen (TYLENOL) tablet 650 mg 650 mg Oral Every 6 hours prn Marielena Siegel MD Or acetaminophen (TYLENOL) suppository 650 mg 650 mg Rectal Every 6 hours prn Tresa Siegel MD oxyCODONE (OXY-IR) tablet 5 mg 5 mg Oral Every 6 hours prn Marielena Siegel MD Or oxyCODONE (OXY-IR) tablet 10 mg 10 mg Oral Every 6 hours prn Marielena Siegel MD HYDROmorphone (DILAUDID) injection solution (conc: 0.5 mg/0.5mL) 0.5 mg 0.5 mg IV Every 2 hoursprn Marielena Siegel MD [START ON 12/14/2020] polyethylene glycol (MIRALAX) packet 1 packet 1 packet Oral Daily Marielena Siegel MD Allergies No Known Allergies Problem List Patient Active Problem List Diagnosis Subcapital fracture of femur, left, closed, initial encounter (HCC) Hemoglobin decreased Hgb 8.3 2015 Chronic kidney disease (CKD) STage 4, creat ~1.9 Mitral regurgitation Mod to severe Chronic atrial fibrillation (HCC) In sinus since starting amio CHF (congestive heart failure) (HCC) Largely secondary to MR and Afib, EF largely intact, 62% in '15 Social History Social History Socioeconomic History Marital status: Spouse name: Not on file Number of children: 2 Years of education: Not on file Highest education level: Not on file Occupational History Not on file Tobacco Use Smoking status: Former Smoker Packs/day: 1.00 Types: Cigarettes Smokeless tobacco: Current User Types: Chew Substance and Sexual Activity Alcohol use: No Drug use: Not on file Sexual activity: Not on file Other Topics Concern Not on file Social History Narrative Patient lives:[place] in the summer and [place] in the winter 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 Tobacco use: preivous Alcohol use:none Hoahaoism: Religion Marital status: Children:1 daughter and 1 son Social Determinants of Health Financial Resource Strain: Difficulty of Paying Living Expenses: Food Insecurity: Worried About Running Out of Food in the Last Year: Ran Out of Food in the Last Year: Transportation Needs: Lack of Transportation (Medical): Lack of Transportation (Non-Medical): Physical Activity: Days of Exercise per Week: Minutes of Exercise per Session: Stress: Feeling of Stress : Social Connections: Frequency of Communication with Friends and Family: Frequency of Social Gatherings with Friends and Family: Attends Restorationist Services: Active Member of Clubs or Organizations: Attends Club or Organization Meetings: Marital Status: Intimate Partner Violence: Fear of Current or Ex-Partner: Emotionally Abused: Physically Abused: Sexually Abused: Family History Family History Problem Relation Age of Onset Not otherwise listed - Cancer Mother 50 leukemia Not otherwise listed - Cancer Daughter breast cancer Other Brother lupus ROS Review of Systems Constitutional: Negative for chills and fever. HENT: Negative for congestion and sore throat. Eyes: Positive for vision loss in left eye and vision loss in right eye. Cardiovascular: Negative for chest pain and leg swelling. Respiratory: Negative for cough and shortness of breath. Hematologic/Lymphatic: Negative for bleeding problem. Skin: Negative for rash. Musculoskeletal: Positive for falls. Leg pain Gastrointestinal: Negative for abdominal pain, constipation, diarrhea, nausea and vomiting. Genitourinary: Negative for dysuria and hematuria. Neurological: Negative for headaches and numbness. Physical Exam BP 125/76 Pulse 80 Temp 98.2 F (36.8 C) Resp 16 Ht 185.4 cm (73") Wt 92.4 kg (203 lb 9.6 oz) SpO2 96% BMI 26.86 kg/m2 Body mass index is 26.86 kg/m. Physical Exam Constitutional: Appearance: He is well-developed. HENT: Head: Normocephalic and atraumatic. Eyes: General: No scleral icterus. Cardiovascular: Rate and Rhythm: Normal rate. Rhythm irregularly irregular. Pulses: Intact distal pulses. Heart sounds: Murmur heard. High-pitched blowing holosystolic murmur is present at the apex. Pulmonary: Effort: Pulmonary effort is normal. No respiratory distress. Breath sounds: Normal breath sounds. No wheezing. Abdominal: General: Bowel sounds are normal. There is no distension. Palpations: Abdomen is soft. Tenderness: There is no abdominal tenderness. Musculoskeletal: General: Tenderness (LLE) present. Cervical back: Neck supple. Right lower leg: No edema. Left lower leg: No edema. Comments: LLE is shortened and externally rotated. Decreased ROM due to pain. Cool extremities (baseline). Palpable Dorsalis pedis pulses Skin: General: Skin is warm and dry. Neurological: Mental Status: He is alert and oriented to person, place, and time. Psychiatric: Mood and Affect: Mood normal. Labs/Imaging I have reviewed laboratory studies myself. I have reviewed images myself. I have reviewed the patients medical records. This note was produced with voice recognition software, there may be some unintended errors within the dictation secondary to the software used to compile this note. Marielena Siegel MD Internal Medicine, PGY-1 Page #: [id number] Associated attestation - Leland Reyes MD - 12/13/2020 8:47 AM CDT I saw and evaluated the patient. Discussed with resident and agree with residents findings and plan as documented in the residents note. All patient's available previous medical records reviewed, all available laboratory studies reviewedand interpreted, all available imaging studies reviewed. documented in this encounter Consult Notes Evangelist Morris MD - 12/13/2020 9:43 AM CDT ORTHOPEDIC CONSULT NOTE Reason for Consultation: L hip fx Assessment/Plan: 85M with h/o Afib on warfarin, CHF, CKD, mitral regurgitation, bilateral TKA presents with closed left displaced femoral neck fracture. Identifiable risk factors include cardiac and renal comorbidities, as well as increased INR (currently 3.0). Case discussed with supervisor network control operators orthopedic surgeon, Dr. Tariq. - Will require left hip hemiarthroplasty when medically optimized - INR goal < 1.7, will discuss possible reversal with primary team - Ok for diet today, NPO midnight - T&S, trend PT/INR - NWB LLE - DVT ppx per primary - IM primary HPI: 85M presents with left hip pain following mechanical fall from ground level that occurred last night. Patient states that he has poor vision, ran into his daughter's camper, causing him to fall to the ground, landing directly on his left side. Did hit head, no LOC. Presented to OSH where xrays demonstrated femoral neck fracture, transferred to [facility] for further management. Reports continued pain in left hip. No numbness/tingling. No pain in any other extremity. At baseline, does ambulate short distances without assistive devices, but often uses a cane or electric scooter. Non-diabetic. Non-smoker. On warfarin, INR 3.0. PMH: Past Medical History: Diagnosis Date Atrial fibrillation (HCC) 01/05/2012 CHF (congestive heart failure) (HCC) 01/05/2012 Chronic kidney disease (CKD) 01/23/2014 Mitral regurgitation 03/30/2013 PSH: Past Surgical History: Procedure Laterality Date EYE SURGERY Cataract left JOINT REPLACEMENT bilateral knee replacement Home Medications: No current facility-administered medications on file prior to encounter. Current Outpatient Medications on File Prior to Encounter Medication Sig Dispense Refill Magnesium Hydroxide (DULCOLAX PO) Take by mouth OTC taken PRN only, can't recall dose calcitriol (ROCALTROL) 0.25 mcg capsule Take 0.25 mcg by mouth Every other day Taken only on Tuesday, Tuesday, and Tuesday furosemide (LASIX) 20 mg tablet Take 1 tablet by mouth 1 time per day. (Patient taking differently: Take 40 mg by mouth 1 time per day ) 90 tablet 0 warfarin (COUMADIN) 5 mg tablet *[facility] Managed Pt* Take as directed. (ForInsurance Purposes: 2.5-5mg daily dose range) Call [phone] with ?'s. 60 tablet 0 metoprolol tartrate (LOPRESSOR) 25 mg tablet Take 1 tablet by mouth 1 time per day. 90 tablet 0 spironolactone (ALDACTONE) 25 mg tablet Take 1 tablet by mouth 1 time per day. (Patient taking differently: Take 12.5 mg by mouth 1 time per day ) 90 tablet 0 Multiple Vitamins-Minerals (OCUVITE PO) Take 1 tablet by mouth 1 time per day. aspirin 81 mg enteric coated tablet Take by mouth 1 time per day. Allergies: No Known Allergies Social History: Social History Socioeconomic History Marital status: Spouse name: Not on file Number of children: 2 Years of education: Not on file Highest education level: Not on file Occupational History Not on file Tobacco Use Smoking status: Former Smoker Packs/day: 1.00 Years: 0.00 Pack years: 0.00 Types: Cigarettes Quit date: 2011 Years since quittin.4 Smokeless tobacco: Current User Types: Chew Substance and Sexual Activity Alcohol use: No Drug use: Never Sexual activity: Not on file Other Topics Concern Transportation Not Asked Stress in your marriage Not Asked Stress with your relationship Not Asked Stress with your family Not Asked Parenting/Being a parent Not Asked Daycare concerns Not Asked Not enough social support Not Asked Housing problems Not Asked Financial stress Not Asked Safety/danger Not Asked Work/job stress Not Asked Legal stress Not Asked Time conflicts (feeling too busy) Not Asked Academic/school stress Not Asked Language difficulties Not Asked Spiritual concerns Not Asked Insurance problems Not Asked The cost of having to take medication Not Asked The costs of buying food/groceries Not Asked Illness of family member/friend/relative Not Asked of a family member/friend/relative Not Asked Violence in your relationship Not Asked Abuse/neglect Not Asked Community stress Not Asked Cultural barriers Not Asked Ability to do self cares Not Asked Social History Narrative Patient lives:[place] in the summer and [place] in the winter 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 Tobacco use: preivous Alcohol use:none Hoahaoism: Religion Marital status: Children:1 daughter and 1 son Social Determinants of Health Financial Resource Strain: Difficulty of Paying Living Expenses: Food Insecurity: Worried About Running Out of Food in the Last Year: Ran Out of Food in the Last Year: Transportation Needs: Lack of Transportation (Medical): Lack of Transportation (Non-Medical): Physical Activity: Days of Exercise per Week: Minutes of Exercise per Session: Stress: Feeling of Stress : Social Connections: Frequency of Communication with Friends and Family: Frequency of Social Gatherings with Friends and Family: Attends Restorationist Services: Active Member of Clubs or Organizations: Attends Club or Organization Meetings: Marital Status: Intimate Partner Violence: Fear of Current or Ex-Partner: Emotionally Abused: Physically Abused: Sexually Abused: Family History Family History Problem Relation Age of Onset Not otherwise listed - Cancer Mother 50 leukemia Not otherwise listed - Cancer Daughter breast cancer Other Brother lupus, stroke, cardiac arrest Review of Systems: Constitutional: Negative. HENT: Negative. Eyes: Negative. Respiratory: Negative. Cardiovascular: Negative. Gastrointestinal: Negative. Genitourinary: Negative. Musculoskeletal: Refer to HPI. Skin: Negative. Neurological: Negative. Negative for numbness. Psychiatric/Behavioral: Negative. Physical Exam: Vitals: 12/12/20 2257 12/12/20 2300 12/13/20 0726 BP: 125/76 120/64 Pulse: 80 80 Resp: 16 16 Temp: 98.2 F (36.8 C) 98 F (36.7 C) SpO2: 96% 99% Weight: 92.4 kg (203 lb 9.6 oz) Height: 185.4 cm (73") Gen: NAD, AOx3 LLE: Mild edema about the hip. Skin intact. TTP about the fracture site, no TTP distally or proximally. SILT distally. Wiggles toes, PF/DF ankle, EHL intact. Palpable pulses distally. Remaining extremities atraumatic, non-TTP, NVID Imaging: CT PELVIS Displaced subcapital fracture of femoral neck, no other acute osseous abnormality. Evangelist Morris MD Orthopedic Surgery, [id number] signed by Vivek Tariq MD at 12/13/2020 11:34 AM CDT Associated attestation - Vivek Tariq MD - 12/13/2020 11:34 AM CDT I discussed the patient with the resident and personally interviewed and examined the patient. I verified in the medical record all resident documentation/findings, including history, physical exam, and medical decision making, and I agree with the resident's documentation. documented in this encounter Miscellaneous Notes Clinical Team - Maribell Burgess RN - 12/18/2020 10:00 AM CDT Report called to facility and given to Yesi LUND. Transport ETA is for 1030. ase Tammie - Jennifer August RN - 12/18/2020 8:48 AM CDT CASE MANAGEMENT / SOCIAL SERVICE FINAL TRANSITION PLAN TRANSITION DATE: 12/18 pending medical stability TRANSITION TIME: 10:30 am INTENDED PAYER SOURCE FOR AGENCY: Medicare TRANSITION DESTINATION: [facility] in [place], [place] DOES ACCEPTING FACILITY REQUIRE COVID TESTING BEFORE DISCHARGE: Needs one negative test within 24-48 hours COVID swab 12/17 not detected TRANSITION TRANSPORTATION: [facility] Wheel[facility] (P:[phone]) TRANSPORTATION PAYMENT: Family to Pay: Prepaid for Ride TRANSITION CHOICES OFFERED: Home Health: Nurse and Physical Therapy Home: Family/Friend Support Outpatient Therapy: Physical Therapy [facility] Swing Bed Transitional Care PATIENT / SUBSTITUTE DECISION MAKER GOAL UPON TRANSITION: First Choice: [facility] Transitional Care TRANSITION PLAN REVIEWED WITH AND AGREED UPON BY: Patient Daughter, Maribell Bedside nurse Charge nurse PT Providers PROVIDED PATIENT / FAMILY WITH VERBAL / WRITTEN EXPLANATION OF MEDICARE OR INSURANCE COVERAGE OF CORRECTION FACILITY Yes RESOURCE(S) PROVIDED: Placement and Transportation DOES THE PATIENT HAVE A PRIMARY CARE PHYSICIAN? Yes René Laurent MD ANTICIPATED MODE OF TRANSPORT TO AND FROM FOLLOW UP APPOINTMENTS: Family Car VERIFIED CORRECT PHARMACY IS ENTERED FOR DISCHARGE: Yes - Pharmacy: Reconcile medications as Patient Transfer ("65 button") METHOD OF PRESCRIBING MEDICATIONS: Reconcile medications as Patient Transfer ("65 button") PATIENT DISCUSSED IN TRANSITION ROUNDS / OUTLIER ROUNDS: Yes COMMENTS / PATIENT AND FAMILY RESPONSE TO PLAN: Discussed with interdisciplinary team. [facility] is able to admit today. Update provided to facility. Met with patient who is in agreement with plan of care. Family aware and in agreement as well. Interdisciplinary team updated. Will continue to follow providers and therapy recommendations for safe discharge planning. Will continue to reassess any discharge needs. CURRENT READMISSION RISK SCORE / HANDOFF: Predictive Risk Score Risk of Unplanned Readmission: 14.6 Handoff given: N/A SPECIAL TRANSITION DAY INSTRUCTIONS TO NURSE / MD: Discharge to Swing Bed. Please place interagency orders per unit policy. Bedside RN, please call report to: P: [phone] Please fax discharge information per unit policy to: F: [phone] Pharmacy: Reconcile medications as Patient Transfer ("65 button") SIGNED: Jennifer August RN Case Manager - Orthopedics [facility] are Planning - Donald Wilson RN - 12/18/2020 7:36 AM CDT Problem: ACUTE PAIN Goal: CLIENT SATISFACTION: PAIN MANAGEMENT Description: DEFINITION: Extent of positive perception of nursing care to relieve pain. 1=Not at all satisfied, 2=Somewhat satisfied, 3=Moderately satisfied, 4=Very satisfied, 5=Completely satisfied. Outcome: NOC Rating 3 Flowsheets (Taken 12/18/2020 0735) Patient Progress: pt verbalizing pain level of 1-2/10 during this shift. pt has been provided with ice packs and scheduled pain medications during this shift. pt states he is satisified with his pain control regimen a this time. Problem: RISK FOR IMPAIRED SKIN INTEGRITY Goal: TISSUE INTEGRITY: SKIN & MUCOUS MEMBRANES Description: DEFINITION: Structural intactness and normal physiological function of skin and mucousmembranes. 1=Severely compromised, 2=Substantially compromised, 3=Moderately compromised, 4=Mildly compromised, 5=Not compromised. Outcome: NOC Rating 3 Flowsheets (Taken 12/18/2020 0735) Patient Progress: Still on repositioning to prevent skin breakdown utrition Team - Federica Mays RD - 12/17/2020 4:11 PM CDT Nutrition Therapy Initial Assessment Hospital Day: 5 days Active Problems: Left subcapital femoral fracture Mechanical Fall S/p left hemiarthroplasty Postoperative leukocytosis PMH: CKD stage 4, Chronic Afrib, CHF Recommendations: 1) Encourage adequate oral intake with 3 meals and snacks (as needed) to meet estimated needs. Offer snacks/ONS with missed meals or intake <50%. Please record meal intake % in flowsheets Assist patient with meal ordering as needed 2) Recommend adjusting bowel regimen as patient has had no documented BM in ~4-5 days 3) If oral intake does not improve may have to consider nutrition support (poor intake x5 days) Isosource HN at goal rate of 70 mL/hr Expect to provide ~1930 kcal and 85 gm protein Malnutrition Summary: Will reassess as able (will try to obtain diet hx when more awake) NUTRITION ASSESSMENT Visited with patient today. He was quite tired/drowsy during visit so was unable to obtain any diet or weight hx. Did note to have some muscle/fat losses on NFPE, however will re-assess for malnutrition once able to fully visit with patient. Patient agreeable to starting scheduled snacks. Has had poororal intake x5 days. Will continue to work with patient to promote improved oral intake. Did providesome TF recs if oral intake does not improve in the next 48 hours. Anthropometrics: Height: 185.4 cm (6' 1") Admission Weight: Weight: 92.4 kg (203 lb 9.6 oz) as of 12/12/2020 per bed scale Most Recent Weight: Weight: 92.4 kg (203 lb 9.6 oz) (12/12/20 2300) per bed scale BMI: Body mass index is 26.86 kg/m. IBW: 84 kg %IBW: 110% (based on admit weight) Usual Body Weight: Unknown Unintentional Weight Loss: No weight hx on file. Patient unable to provide any hx today. Estimated Needs: (adjusted for age) 6186-4019 kcal/day ([place]. Jeor x 1.1-1.2 Using: Admission Weight) 85-90 gm protein (1.0-1.1 gm/kg Using:[place] Body Weight) Fluids per MD Estimated average intake over the last 5 days: 12/12: 0% 12/13-12/16: 645 kcal and 30 gm protein (meets 35% of est need) Intake Records: Intake Prior to Admit: Diet quality unknown as unable to obtain diet hx from patient. 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 Noted to have a few front teeth missing during visit. Current Intake: Sub optimal - meeting <50% of estimated needs x5 days. Current Diet: Nutrition (From admission, onward) Start Ordered 12/15/20 181 Diet - Heart Healthy Now Question: Modified Diets Answer: Heart Healthy 12/15/20 1806 12/15/20 1220 ADVANCE DIET TOLERATED ONCE 12/15/20 1220 Physical Assessment: Edema: (per review appraiser at 2029 today) Generalized Edema None GI Assessment: Abdominal exam: WDL, per review appraiser at 2029 today. Stool Frequency: No documented BM over the last 5 days Wounds/Pressure Points: (per review appraiser at 2029 today) Coccyx Blanchable Redness Elbow Blanchable Redness Heel Left, Right, Blanchable Redness Shoulder Left, Right, Blanchable Redness Functional Status: PT Following OT Following Nutrition Focused Physical Exam: Completed by RD on 12/17 Below the Eye (fat): Slightly dark circles, somewhat hollow look (mild-moderate) (mild) [place] (muscle): Slight depression (mild-moderate) (moderate) Buccal (fat): Full, round/filled out cheeks (Within defined limits) (mild) Clavicle (muscle): Some protrusion of bone (mild-moderate) Shoulder (muscle)/Deltoid muscle: Rounded curves at arm/shoulder/neck (Within defined limits) Triceps/Biceps (fat): Ample fat tissue obvious between folds of skin (Within defined limits) Hand/Interosseous (muscle): Flat to bulging muscle (Within defined limits) Thigh (muscle): Well-rounded, no bone prominence (Within defined limits) Calf (muscle): Well-developed bulb of muscle (Within defined limits) Nutritionally-Relevant Medications, Vitamins and Minerals: Lasix, Lopressor, Zofran, Miralax, Senokot Nutritionally-Relevant Biochemical Data: (12/17/2020) BUN 50 H Creatinine 2.15 H Albumin 3.3 L GFR 29 L Allergies/Food Intolerance: Don has No Known Allergies. Culturally Restorationist Needs: NA INTERVENTIONS Encouraged adequate calories and optimal protein in small, frequent meals and snacks Will send snacks and supplements Conducted NFPE EMR reviewed Evaluated current intake for tolerance and adequacy MONITORING/EVALUATION Monitor ability to consume and tolerate adequate intake to approximate estimated needs with accomodation of preferences and tolerances until intake is sustained within desirable limits Monitor I&O, weight trends, nutrition-related labs and medications, clinical status, and planof care r/t need for nutrition intervention and provide as warranted Nutrition Therapy will reassess every 1-4 days Federica Mays RDN, LRD Pager: [phone] Physical Therapy - Kelsi Hayes, PT - 12/17/2020 2:13 PM CDT Pt reports feeling very tired this pm and had just gotten back to bed from OT. With some encouragement he was receptive to ANNIE ex only (no OOB activities) so did ANNIE ex x 10 reps, sheet assist. Thereex 15 min. Plan is [place] Swing Bed tomorrow am. ccupational Therapy - Leda Pittman OTR/Mere - 12/17/2020 1:33 PM CDT Occupational Therapy Orthopedic Progress Note Treatment Today's Treatment Therapeutic activity: 32 minutes Start Time: 1300 Total for time-based codes: 32 minutes Total treatment time: 32 minutes Pt progressing towards goals Pain: Pain at rest: 2/10 Pain during activity: 2/10 Location: L hip Treatment provided: Pt was in bed upon arrival of OT and somewhat willing to participate. OT is currently scheduled for w/c transport to swing bed tomorrow but pt wanted to try a car transfer just to make sure. He was transferred from supine to sit EOB with mod A. Stood from elevated bed with mod A and transferred to chair with min A and shuffling gait. He was assisted down to therapy gym via wheeled chair. OT set up simulated car transfer to simulate him using his daughters explorer. He was able to stand from chair with min A x1 and shuffle to the raised mat. OT placed small step to simulate running board. He completed transfer with min A x1 and second hand for safety. He required increased assistance to stand back onto running board with min A x1 and CGA with second hand. He transferred back to chair with hand placement assistance x1. Educated pt on session and safety for himself and family to wait until he transfers into and out of his own family car. He was understanding and appreciative of assistance. He was min A x1 to pivot back to bed and mod A with sit to supine transfer. Adaptive Equipment Recommended: To further assess Plan to obtain adaptive equipment: To further assess. Assessment: Patient showing a decrease in ADL/transfer performance and will benefit from continued OT. Plan: See daily M-F for ADL/transfer training/education, assess adpative equipment needs. Recommend: Short term SNF Goals by discharge: Patient will be min assist with bed, chair, toilet, car transfers with adaptive equipment as needed. Patient will be min assist with tub/shower transfer with adaptive equipment as needed. Patient will be min assist with self care skills with adaptive equipment as needed. Patient will be min assist for kitchen/home safety. Therapist pager #: [phone] TCJennifer Enamorado RN - 12/17/2020 12:10 PM CDT CASE MANAGEMENT / SOCIAL SERVICE TRANSITION PLAN - PROGRESS NOTE PLAN: anticipate d/c 12/18 to [facility] in [place], [place] via [facility] WC at 10:30 am BARRIERS TO TRANSITION: Awaiting Placement: [facility]/Swing Bed/TCU Awaiting Therapy Recommendations Medical barriers:pain control DOES ACCEPTING FACILITY REQUIRE COVID TESTING BEFORE DISCHARGE: Needs one negative test within 24-48 hours COMMENTS / PATIENT AND FAMILY RESPONSE TO PLAN: Therapy recommending skilled placement upon discharge. Patient and family in agreement and prefer [facility] in [place]. Discussed with Geetha in admissions. They would be able to admit patient tomorrow 12/18 pending medical stability. Patient and family updated and in agreement. WC transport arranged at family's request. Family will bring a check for payment tomorrow morning. IDT updated. IS PATIENT'S ADMISSION ASSOCIATED WITH TIA, ISCHEMIC, OR HEMORRHAGIC STROKE?: No PATIENT / SUBSTITUTE DECISION MAKER GOAL UPON TRANSITION: First Choice: Swing Bed Transitional Care ANTICIPATED NEEDS UPON TRANSITION: Swing Bed Transitional Care RESOURCE(S) PROVIDED: Placement and Transportation ANTICIPATED MODE OF TRANSPORT UPON TRANSITION: WC transport ANTICIPATED MODE OF TRANSPORT TO AND FROM FOLLOW UP APPOINTMENTS: Family Car VERIFIED CORRECT PHARMACY IS ENTERED FOR DISCHARGE: Reconcile medications as Patient Transfer ("65 button") TRANSITION ROUNDING COMPLETED WITH THE FOLLOWING: Patient / family Accountant Manager Attending MD Bedside mica plate layer RN Discussed in person SIGNED: Jennifer August RN Case Manager - Orthopedics [facility] Physical Therapy - Kelsi Hayes PT - 12/17/2020 10:46 AM CDT Physical Therapy Orthopedic Treatment Note Assessment: Patient tolerated treatment well, walking 20' with fWW. Max assist with bed mobility. Will benefit from interim stay prior to home alone Anticipate that patient will be ready to go to TCU/SB/SNF when medically stable and bed available. Plan is [facility] Bed tomorrow. Date: 12/17/2020 am Subjective: Alert and Oriented. Pt receptive to PT. He was able to recall 1/3 ANNIE precautions. Reviewed and functional application discussed. Granddaughter present and supportive. Objective: Supine to/from sit: Mod to max assist one supine to sit. Sit to/from stand: Mod assist one from edge of elevated bed up to FWW Sitting Balance: Good Standing Balance: Fair with FWW Gait: Ambulated 20' with FWW and min assist 2, step to pattern. Recliner chair following for safety. Stairs: NA ROM: L hip flexion 65 degrees, abduction 16 degrees Exercises: Patient completes ANNIE exercises times 10 repetitions with sheet assistance for active exercises. Good strength with isometric exercises. Pain: (0-10 scale) At rest: 1 With Activity: 1 Education: Reviewed precautions, exercise progression, transfer techniques, gait and mobility progression. Assessment: Patient tolerated treatment well, walking 20' with fWW. Max assist with bed mobility. Will benefit from interim stay prior to home alone Anticipate that patient will be ready to go to TCU/SB/SNF when medically stable and bed available Plan: Continue with PT POC Time Treatment Occurred: 0900 Gait: 15 minutes Exercise: 15 minutes Therapeutic Activity: 0 minutes TOTAL TIMED CODES: 30 minutes TREATMENT TOTAL TIME: 30 Minutes are Planning - Maribell Burgess RN - 12/17/2020 9:00 AM CDT Problem: ACUTE PAIN Goal: CLIENT SATISFACTION: PAIN MANAGEMENT Description: DEFINITION: Extent of positive perception of nursing care to relieve pain. 1=Not at all satisfied, 2=Somewhat satisfied, 3=Moderately satisfied, 4=Very satisfied, 5=Completely satisfied. Flowsheets (Taken 12/17/20201848) Initial Score: 4 Target Score: 4 Plan of care reviewed with: Patient Patient specific goal for the day: pt will have adequet relief from pain with both oral medicationsand alternative interventions during this shift. Patient specific goal for the stay: pt will report pain level at or below 4/10 prior to discharge. Achieve goal for stay: By discharge Patient Progress: pt verbalizing pain level of 1-2/10 during this shift. pt has been provided with ice packs and scheduled pain medications during this shift. pt states he is satisified with his pain control regimen a this time. Problem: RISK FOR FALLS Goal: FALL PREVENTION BEHAVIOR Description: DEFINITION: Personal or family healthcare network consultant actions to minimize risk factors that might precipitate falls in the personal environment. 1=Never demonstrated, 2=Rarely demonstrated, 3=Sometimes demonstrated, 4=Often demonstrated, 5=Consistently demonstrated. Flowsheets (Taken 12/17/20201848) Initial Score: 3 Target Score: 4 Plan of care reviewed with: Patient Patient specific goal for the day: pt will use call pringle to ask for assitance needed during this shift . Patient specific goal for the stay: pt will be free from falls during this admission . Patient Progress: pt is alert and oriented x 4. pt pt is using call pringle appropraitely. pt ambulatessafely with 1*2 assit with walker and gait belt. are Planning - Donald Wilson RN - 12/17/2020 6:44 AM CDT Problem: ACUTE PAIN Goal: CLIENT SATISFACTION: PAIN MANAGEMENT Description: DEFINITION: Extent of positive perception of nursing care to relieve pain. 1=Not at all satisfied, 2=Somewhat satisfied, 3=Moderately satisfied, 4=Very satisfied, 5=Completely satisfied. Outcome: NOC Rating 3 Flowsheets (Taken 12/17/2020 0643) Patient Progress: Patient verbalizing mild pain of 2/10 to left hip. Ice pack applied. Scheduled Tramadol administered. Patient has PRN Oxycodone available. Will continue to monitor and assess pain Problem: IMPAIRED PHYSICAL MOBILITY Goal: MOBILITY Description: DEFINITION: Ability to move purposefully in own environment independently with or without assistive device. 1=Severely compromised / Total assistance: Performs less than 25% of activity; 2=Substantially compromised / Maximal assistance: Performs 25-49% of activity; 3=Moderately compromised / Moderate assistance: Performs 50-74% of activity; 4=Mildly compromised / Modified independence: Needs assistive device, supervision, minimal contact,or safety is a concern; 5=Not compromised / Complete independence. Outcome: NOC Rating 3 Flowsheets (Taken 12/17/2020 0643) Patient Progress: patient up with 2 assist. cont to monitor. TCJennifer Enaomrado RN - 12/16/2020 3:22 PM CDT CASE MANAGEMENT REFERRAL EDUCATION Patient in need of the following services: Transitional Care / Fci Facility / Swing Bed Discussion of this need and/or printed listing of available agencies has been provided to patient/substitute decision maker. Opportunities have been given for questions to be asked and answered. Patient/Substitute decision maker agency preferences for services (list in order of preference): 1. [facility] Swing bed in [place] 2. [facility] SNF in [place] 3. n/a Referrals Made: Profiled via [employer] to following SNFs: [facility] and [facility] Medicare Comparison Information: Medicare guidelines require referring agencies to provide information regarding agency quality ratings. [facility] may assist with questions about facilities but cannot make recommendations. Patients and their families/decision makers are able to compare ratings of facilities at the following website: h ttps://www.medicare.gov/qtxth-irco-ozeeiwelz/gkcz-ilabsnj-qmtjhhc-[facility] r-providers or you may call 1-800-MEDICARE Acceptance/Placement: [facility] shares necessary clinical information with potential agencies to allow them to screen patients for safe admission to their facilities. This information is shared via secure communication. Acceptance by a post-acute facility is dependent on many factors including space, care needs, staffing, and insurance coverage. Financial disclosure: Verification of ownership of any agency/facility is available in the above Medicare website. [facility] is affiliated with [facility]-owned home care, hospice, andskilled nursing facilities, including agencies with [employer] in the name and [facility]. Additional agencies may not have [employer] in their name. Medicare guidelines require [facility] to provide a written list of options for your desired care. Youwill be provided a copy if desired. A copy of this document will be given to patient/substitute decision maker as confirmation of conversation regarding referrals and placement options. 12/16/2020 Physical Therapy - Kelsi Hayes PT - 12/16/2020 2:47 PM CDT Physical Therapy Orthopedic Treatment Note Date: 12/16/2020 pm Subjective: Alert and Oriented. Pt receptive to PT. Daughter present and supportive. Pt states he enjoyed sitting up in the chair earlier this am and wants to again this pm. Objective: Supine to/from sit: Mod to max assist one supine to sit. Sit to/from stand: Mod assist one from edge of elevated bed up to FWW Sitting Balance: Good Standing Balance: Fair with FWW Gait: Ambulated 25' with FWW and min assist 2, step to pattern. Recliner chair following for safety. Stairs: NA ROM: As am Exercises: Patient completes ANNIE exercises times 10 repetitions with sheet assistance for active exercises. Good strength with isometric exercises. Pain: (0-10 scale) At rest: 2 With Activity: 2 Education: Reviewed precautions, exercise progression, transfer techniques, gait and mobility progression. Assessment: Patient tolerated treatment well, walking 25' with fWW. Max assist with bed mobility. Will benefit from interim stay prior to home alone Anticipate that patient will be ready to go to TCU/SB/SNF when medically stable and bed available Plan: Continue with PT POC Time Treatment Occurred: 1300 Gait: 15 minutes Exercise: 15 minutes Therapeutic Activity: 0 minutes TOTAL TIMED CODES: 30 minutes TREATMENT TOTAL TIME: 30 Minutes Occupational Therapy - Leda Pittman OTR/L - 12/16/2020 11:51 AM CDT Occupational Therapy Orthopedic Evaluation Date: 12/16/2020 Time: 11:10 Admitting Diagnosis: L femoral neck fracture with allen arthroplasty (12/15/2020) PMH: Past Medical History: Diagnosis Date Atrial fibrillation (HCC) 01/05/2012 CHF (congestive heart failure) (HCC) 01/05/2012 Chronic kidney disease (CKD) 01/23/2014 Mitral regurgitation 03/30/2013 Precautions: ANNIE Weight bearing status: WBAT SOCIAL/HOME ENVIRONMENT House: apartment Lives Alone: Yes Bed/Bath on Main Floor: Yes Bath Setup: Combo with curtain Prior Level of Functioning: Assist for Cooking - goes to [employer] for lunch then children pick him up for dinner. Transportation Adaptive Equipment Available: shower chair, hand held shower, grab bars tub/shower, handicapped-height toilet and cane ADLs TBA TRANSFERS Bed: moderate assistance Total Hip precautions were reviewed with the patient. Patient requires continued education/review of precautions. UE FUNCTION: WFL COGNITION: Alert and orientated Pain Level at Rest: 2/10 Pain Level with Activity: 2/10 PATIENT/FAMILY EDUCATION: ANNIE precautions Transfers Self Care Role of OT Adaptive Equipment Recommended: To further assess Plan to obtain adaptive equipment: To further assess. Assessment: Patient showing a decrease in ADL/transfer performance and will benefit from continued OT. Plan: See daily M-F for ADL/transfer training/education, assess adpative equipment needs. Recommend: Short term SNF Goals by discharge: Patient will be min assist with bed, chair, toilet, car transfers with adaptive equipment as needed. Patient will be min assist with tub/shower transfer with adaptive equipment as needed. Patient will be min assist with self care skills with adaptive equipment as needed. Patient will be min assist for kitchen/home safety. Certification dates: 12/16/2020 to 01/15/2021 Today's Treatment Evaluation Start Time: 11:10 Total for time-based codes: 0 minutes Total treatment time: 22 minutes Evaluation Complexity PMH/Comorbidities that affect Occupational Performance: see above for PMH Occupational Profile/Medical and Therapy History: LOW - Brief history relating to presenting problem Patient Assessment: LOW - 1-3 performance deficits relating to physical, cognitive, psychosocial limitations/restrictions Clinical Decision Making: LOW - Low complexity, limited amount of treatment options, no assessment modification, no comorbidities Evaluation Complexity: Low Treatment provided: Pt was educated on the role and benefits of occupational therapy including plan for session today. Patient was agreeable. Therapist provided education/ training on ANNIE precautions. Pt verbalized agreement. Pt stated that he just got back into bed but understands the reasoning for exercise. Pt was agreeable to a short session. Pt transferred from supine to sit with mod A while following precautions. Pt required max A to stand from elevated bed and stood for 2 minutes prior to sitting back down. Pt was mod A to transition back to supine. He declined further therapy. Recommend ongoing therapy following d/c to ensure safe return home. Gait belt, non-slip foot wear and FWW utilized for all out of bed activity/transfers. At end of session, pt sitting comfortable in bed with call light, phone and tray table within reach. Therapist pager #: [phone] CERTIFICATION I certify that the services as described in the above note are furnished while the patient is under my care; a plan for furnishing these services has been established and will be periodically reviewed;the services are required for the patient; and the services are subject to established guidelines [id number] signed by Osmel Mays DPM at 12/16/2020 1:29 PM CDTPhysical Therapy - Kelsi Hayes PT - 12/16/2020 10:56 AM CDT Physical Therapy Orthopedic Evaluation Date: 12/16/2020 Referring Physician: Edgar eMsa DO Diagnosis/Surgical Procedure and Date: L femoral neck fracture with allen arthroplasty (12/15/2020) Significant PMH: Past Medical History: Diagnosis Date Atrial fibrillation (HCC) 01/05/2012 CHF (congestive heart failure) (HCC) 01/05/2012 Chronic kidney disease (CKD) 01/23/2014 Mitral regurgitation 03/30/2013 Physician Orders: Eval and treat Weight Bearing Status: As tolerated Precautions: Standard ANNIE Status Prior to Hospitalization/Surgical Procedure: Current Living Environment: Lives alone in apartment in [place] Stairs to Enter Home: None Railing: NA Stairs to Bedroom or Bathroom: 0 Railing: NA Lives: Alone Ambulation Status: Prior to admit he used a cane occasionally. He uses motorized scooter for going distances outside his home. He does not drive. Equipment Owned: Cane, motorized scooter Patient/Family Concerns: None expressed Patient Goals: Pt expressed desire to return home but with daughter present both later stated they realize interim stay is appropriate. CM aware. Current Status: Cognition: Alert and Oriented. Limited vision per daughter report ("about 10%") Observation: On arrival pt lying in bed with hip abductor pillow in place ROM: L hip flexion 57 degrees, abduction 15 degrees Transfers: Supine to/from Sit: Max assist one supine to sit exiting bed on pt's right side Sit to/from Stand: Mod assist one from edge of elevated bed up to FWW Balance: Sitting: Good Standing: Fair with FWW Gait: Ambulated 5' with FWW and min to CGA of 2, small shuffling steps Stairs: NA Exercises: Patient completes 10 repetitions of ANNIE exercises with sheet assistance for active exercises. Fair strength with isometric exercises. Independent SAQ Pain Level: (0-10 scale) At rest: 2 With Activity: 2 Comments: Patient/Family Education: Reviewed precautions, role of the physical therapist, and discussed anticipated outcome goals. Other: Family Present during Evaluation: Karlene Reyna Treatment: Time Treatment Occurred: 829 Evaluation: X Gait: 10 minutes Exercise: 15 minutes Therapeutic Activity: 0 minutes TOTAL TIMED CODES: 25 minutes TREATMENT TOTAL TIME: 30 minutes Assessment: Patient presents with impaired functional mobility post surgical procedure and will benefit with continued PT. Patient may require post acute inpatient recovery at: [place], Inpatient Rehab, -SNF. Plan: Follow daily for gait traning, therapeutic exercise, therapeutic activity, and education. Goals: By hospital discharge or within 2-3 days. Patient involved in developing/progressing goals and treatment plan. Supine to sit with mod assist. Sit to stand with min assist. Ambulate 20 feet on level surfaces with CGA assist and appropriate assistive device. Follow precautions during functional mobility. Achieve 65 degrees supine hip flexion and 15 degrees hip abduction. are Planning - Kristy Berrios RN - 12/16/2020 10:17 AM CDT Problem: ACUTE PAIN Goal: CLIENT SATISFACTION: PAIN MANAGEMENT Description: DEFINITION: Extent of positive perception of nursing care to relieve pain. 1=Not at all satisfied, 2=Somewhat satisfied, 3=Moderately satisfied, 4=Very satisfied, 5=Completely satisfied. Outcome: NOC Rating 3 Flowsheets (Taken 12/16/2020 1010) Initial Score: 2 Target Score: 4 Plan of care reviewed with: Patient Patient specific goal for the day: Patient's pain will be managed with both pharmacologic and non-pharmacologic options Patient specific goal for the stay: Patient's pain will be managed to keep pain less than 4/10 Achieve goal for stay: By discharge Patient Progress: Patient verbalizing mild pain of 2/10 to left hip. Ice pack applied. Scheduled Tramadol administered. Patient has PRN Oxycodone available. Will continue to monitor and assess pain. Problem: RISK FOR FALLS Goal: FALL PREVENTION BEHAVIOR Description: DEFINITION: Personal or family healthcare network consultant actions to minimize risk factors that might precipitate falls in the personal environment. 1=Never demonstrated, 2=Rarely demonstrated, 3=Sometimes demonstrated, 4=Often demonstrated, 5=Consistently demonstrated. Outcome: NOC Rating 3 Flowsheets (Taken 12/16/2020 1010) Initial Score: 2 Target Score: 4 Plan of care reviewed with: Patient Patient specific goal for the day: Fall/safety precautions will be implemented to prevent falls Patient specific goal for the stay: Patient will not have any falls Achieve goal for stay: By discharge Patient Progress: Patient alert and oriented and calling appropriately. Patient ambulates with assist x 2, FWW, GB. Bed in lowest position, call light within reach, care rounding ongoing. Will continueto monitor and assess patient TCJennifer Enamorado RN - 12/16/2020 10:05 AM CDT CASE MANAGEMENT / SOCIAL SERVICE TRANSITION PLAN - PROGRESS NOTE PLAN: therapy recommending placement BARRIERS TO TRANSITION: Awaiting Placement: Fci/Swing Bed/TCU Awaiting Therapy Recommendations Medical barriers:pain control DOES ACCEPTING FACILITY REQUIRE COVID TESTING BEFORE DISCHARGE: Needs one negative test within 24-48 hours COMMENTS / PATIENT AND FAMILY RESPONSE TO PLAN: Initial CM assessment reviewed. Discussed with IDT. PT recommending skilled placement. Met with patient and his daughter, Maribell, at bedside. Reviewed therapy recommendations. Although patient would prefer to go home, both patient and family agreeable to placement. They prefer swing bed in [place]. Profile sent via [employer]. Update: Met with patient and his daughter again to discuss bed offers. Both the swing bed and SNF [facility] likely will be able to offer beds (). Patient prefers swing bed. Discussed with Geetha in admissions at the swing bed. They anticipate being able to admit 12/18 but will need to find an admitting provider. CM will continue to follow. IS PATIENT'S ADMISSION ASSOCIATED WITH TIA, ISCHEMIC, OR HEMORRHAGIC STROKE?: No PATIENT / SUBSTITUTE DECISION MAKER GOAL UPON TRANSITION: First Choice: Swing Bed Transitional Care ANTICIPATED NEEDS UPON TRANSITION: Swing Bed Transitional Care RESOURCE(S) PROVIDED: Placement and Transportation ANTICIPATED MODE OF TRANSPORT UPON TRANSITION: Family vehicle vs WC transport ANTICIPATED MODE OF TRANSPORT TO AND FROM FOLLOW UP APPOINTMENTS: Family Car VERIFIED CORRECT PHARMACY IS ENTERED FOR DISCHARGE: No - will update once discharge location is finalized TRANSITION ROUNDING COMPLETED WITH THE FOLLOWING: Patient / family Accountant Manager Attending MD Bedside mica plate layer RN Discussed in person SIGNED: Jennifer August RN Case Manager - Orthopedics [facility] are Planning - Uzair Franco RN - 12/16/2020 5:13 AM CDT Problem: ACUTE PAIN Goal: CLIENT SATISFACTION: PAIN MANAGEMENT Description: DEFINITION: Extent of positive perception of nursing care to relieve pain. 1=Not at all satisfied, 2=Somewhat satisfied, 3=Moderately satisfied, 4=Very satisfied, 5=Completely satisfied. Flowsheets (Taken 12/16/2020 0244) Target Score: 4 Plan of care reviewed with: Patient Patient specific goal for the day: Patient will rate his pain under 5/10 Patient specific goal for the stay: Patients pain will be tolerable Achieve goal for stay: By discharge Patient Progress: Patients' pain has been averaging around a 4-5/10. He is on scheduled Problem: RISK FOR IMPAIRED SKIN INTEGRITY Goal: TISSUE INTEGRITY: SKIN & MUCOUS MEMBRANES Description: DEFINITION: Structural intactness and normal physiological function of skin and mucousmembranes. 1=Severely compromised, 2=Substantially compromised, 3=Moderately compromised, 4=Mildly compromised, 5=Not compromised. Flowsheets (Taken 12/16/2020507) Target Score: 4 Plan of care reviewed with: Patient Patient specific goal for the day: Patient will be turn every two hours Patient specific goal for the stay: No skin break down Patient Progress: Still on repositioning to prevent skin breakdown Problem: IMPAIRED URINARY ELIMINATION Goal: URINARY ELIMINATION Description: DEFINITION: Collection and discharge of urine. 1=Severely compromised, 2=Substantiallycompromised, 3=Moderately compromised, 4=Mildly compromised, 5=Not compromised. Flowsheets (Taken 12/16/2020 050) Target Score: 4 Plan of care reviewed with: Patient Patient specific goal for the day: Ny care to prevent any infection Patient specific goal for the stay: Patient will return to baseline functioning, without the use of ny Patient Progress: Currently having ny, but draining well. Clinical Team - Amparo Grier RN - 12/15/2020 8:21 PM CDT skin assessment completed with Giorgio Carter RN Behind ears: bruising to right ear Elbows: BI Blanchable redness Coccyx: Blanchable redness, dressing in place, brusing left ischium. Any other areas of notable concern: bruises to left flank, left flank, left shins WOCN consulted: N/A Plan/Intervention: Q2S, dressing to coccyx linical Team - Amparo Grier RN - 12/15/2020 6:05 PM CDT Pt arrived from [facility] at 1800 via ambulance. A&O x4. Oriented to call light, pain scale and environment. Aware of own limitations thus far. Sating >90% on RA currently. Denies chest pain, nausea, SOB at this time. Family at bedside. Afebrile. Reporting adequate pain control at this time. Bed in lowest position, side rails up x 2, call light in reach. linical Team - Arcelia Hudson RN - 12/15/2020 2:27 PM CDT DAILY SKIN CHECK BEHIND EARS-Right ear has bruise behind ear ELBOWS- blanchable redness ISCHIUM- left side bruising COCCYX- blanchable redness, dressing in place HEELS- blanchable redness ANY OTHER AREAS OF NOTABLE CONCERN- Left flank- bruise - right side of face- bruise Forehead redness, slight bruise REMOVE ALL MEDICAL DEVICES (if medically safe to do so) AND PERFORM SKIN CHECK BENEATH THOSE AREAS THAT THE DEVICE MAKES CONTACT WITH SKIN, evaluate rotating site/move device- Skin check completed with: INTERVENTIONS ALREADY IN PLACE: INTERVENTIONS ADDED TODAY: WOCN consulted? YES/NO/NA: are Planning - Arcelia Hudson RN - 12/15/2020 1:50 PM CDT Problem: RISK FOR IMPAIRED SKIN INTEGRITY Goal: TISSUE INTEGRITY: SKIN & MUCOUS MEMBRANES Description: DEFINITION: Structural intactness and normal physiological function of skin and mucousmembranes. 1=Severely compromised, 2=Substantially compromised, 3=Moderately compromised, 4=Mildly compromised, 5=Not compromised. Flowsheets (Taken 12/15/2020 5051) Plan of care reviewed with: Patient Patient specific goal for the day: pt will tolerate repositioning every 2hrs Patient specific goal for the stay: Have no skin breakdown Achieve goal for stay: By discharge Patient Progress: Pt has hip surgery performed today, Abducter pillow in place. Patient tolerating turns Problem: IMPAIRED PHYSICAL MOBILITY Goal: MOBILITY Description: DEFINITION: Ability to move purposefully in own environment independently with or without assistive device. 1=Severely compromised / Total assistance: Performs less than 25% of activity; 2=Substantially compromised / Maximal assistance: Performs 25-49% of activity; 3=Moderately compromised / Moderate assistance: Performs 50-74% of activity; 4=Mildly compromised / Modified independence: Needs assistive device, supervision, minimal contact,or safety is a concern; 5=Not compromised / Complete independence. Flowsheets (Taken 12/15/2020 1344) Plan of care reviewed with: Patient Patient specific goal for the stay: Patient will call if uncomfortable. Achieve goal for stay: By discharge Patient Progress: Patient tolerating Q2 turn, abducter pillow in place. Problem: RISK FOR FALLS Goal: MOBILITY Description: DEFINITION: Ability to move purposefully in own environment independently with or without assistive device. 1=Severely compromised, 2=Substantially compromised, 3=Moderately compromised,4=Mildly compromised, 5=Not compromised. 12/15/2020 1348 by Arcelia Hudson RN Flowsheets (Taken 12/15/2020 1348) Patient specific goal for the day: Patietn will call for assistance to prevent falls. Patient specific goal for the stay: Pt will not have a fall. Achieve goal for stay: By discharge 12/15/2020 1344 by Arcelia Hudson RN Flowsheets (Taken 12/15/2020 1344) Plan of care reviewed with: Patient Patient specific goal for the day: Patient will work with PT/OT. Problem: IMPAIRED URINARY ELIMINATION Goal: URINARY ELIMINATION Description: DEFINITION: Collection and discharge of urine. 1=Severely compromised, 2=Substantiallycompromised, 3=Moderately compromised, 4=Mildly compromised, 5=Not compromised. Flowsheets (Taken 12/15/2020 1348) Plan of care reviewed with: Patient Patient specific goal for the stay: Patietn will tolerate ny placement and cares. Achieve goal for stay: By discharge ostOp Progress Note - Johnathan Borges MD - 12/15/2020 8:55 AM CDT Immediate Post-Operative / Post Procedure Progress Note Att. Phys: Aaron Edmond* Pt. Type: Inpatient Operative Date: 12/15/2020 Surgeon: Surgeon(s) and Role: * Johnathan Borges MD - Primary * Vickey Gibson MD - Resident - Assisting Sterilisation Technician: Facial Operator : Shahram Zapata RN Scrub Person : Bennett Scott ST Vp Legal Affairs: Raisa Perez PA The skilled assistance of my environmental assistant (PA-C) was necessary for the following activities: positioning of the patient, assistance with the procedure, holding retractors, assistance with holdingreduction, assistance with wound closure, and dressing application. Ramakrishna Gibson MD PGY-2 Orthoresident was present and assisted with the surgery. Pre-Operative Diagnosis: Pre-Op Diagnosis Codes: * Femoral neck fracture (HCC) [S72.009A] Post-Operative Diagnosis: same Anesthesia Type: general Operative Procedure: Procedure(s): LEFT ALLEN HIP ARTHROPLASTY - Wound Class: Clean ID Type Source Tests Collected by Time A : Left hip bone and tissue Bone Hip TISSUE EXAM Johnathan Borges MD 12/15/2020 0855 no implants used for procedure Fluids Given: See Anesthesia Record Urine Output: See Anesthesia Record Estimated Blood Loss: 100 mL Drains: none Findings: none Complications: none Postoperative Condition: stable Occupational Therapy - Hailey Cowan OTR/L - 12/15/2020 8:09 AM CDT OT orders received and acknowledged. Per chart review surgical intervention planned this date. CASSANDRA Dunaway Alpha pager [phone] are Planning - Hali Mays LPN - 12/15/2020 1:03 AM CDT Problem: ACUTE PAIN Goal: CLIENT SATISFACTION: PAIN MANAGEMENT Description: DEFINITION: Extent of positive perception of nursing care to relieve pain. 1=Not at all satisfied, 2=Somewhat satisfied, 3=Moderately satisfied, 4=Very satisfied, 5=Completely satisfied. Flowsheets (Taken 12/15/2020 0102) Initial Score: 3 Target Score: 4 Plan of care reviewed with: Patient Patient specific goal for the day: Pt to rate pain <5 on 0-10 scale. Patient specific goal for the stay: Pt to return to baseline for pain rating. Achieve goal for stay: By discharge Patient Progress: Pt A/O x4. Pt rates pain to left femur fracture between 3-4/10 with 3 being a tolerable pain rating. Pt receives PRN oxy 5mg and tylenol. NPO at midnight for surgery in the morning. Will continue to monitor. Problem: RISK FOR IMPAIRED SKIN INTEGRITY Goal: TISSUE INTEGRITY: SKIN & MUCOUS MEMBRANES Description: DEFINITION: Structural intactness and normal physiological function of skin and mucousmembranes. 1=Severely compromised, 2=Substantially compromised, 3=Moderately compromised, 4=Mildly compromised, 5=Not compromised. Flowsheets (Taken 12/15/2020 0102) Initial Score: 2 Target Score: 4 Plan of care reviewed with: Patient Patient specific goal for the day: pt will tolerate repositioning every 2hrs Patient specific goal for the stay: Have no skin breakdown Achieve goal for stay: By discharge Patient Progress: Pt admitted for left hip fracture, on bed rest, repositioned every 2-3hrs, Patientvoices pain with movement of that limb. Care Planning - Nesha Carter RN - 12/14/2020 9:57 PM CDT Problem: ACUTE PAIN Goal: CLIENT SATISFACTION: PAIN MANAGEMENT Description: DEFINITION: Extent of positive perception of nursing care to relieve pain. 1=Not at all satisfied, 2=Somewhat satisfied, 3=Moderately satisfied, 4=Very satisfied, 5=Completely satisfied. Outcome: NOC Rating 3 Flowsheets (Taken 12/14/20202154) Initial Score: 3 Target Score: 4 Plan of care reviewed with: Patient Patient specific goal for the day: Pt to rate pain <5 on 0-10 scale. Patient specific goal for the stay: Pt to return to baseline for pain rating. Achieve goal for stay: By discharge Patient Progress: Pt A/O x4. Pt rates pain to left femur fracture between 3-4/10 with 3 being a tolerable pain rating. Pt receives PRN oxy 5mg and tylenol. NPO at midnight for surgery in the morning. Will continue to monitor. are Planning - Arcelia Hudson RN - 12/14/2020 1:00 PM CDT Problem: ACUTE PAIN Goal: CLIENT SATISFACTION: PAIN MANAGEMENT Description: DEFINITION: Extent of positive perception of nursing care to relieve pain. 1=Not at all satisfied, 2=Somewhat satisfied, 3=Moderately satisfied, 4=Very satisfied, 5=Completely satisfied. Flowsheets (Taken 12/14/2020 5139) Initial Score: 2 Target Score: 4 Plan of care reviewed with: Patient Patient specific goal for the day: Pt will ask for pain medication if experiencing pain level at 3/10 or above Patient specific goal for the stay: Control pain with oral pain medication Achieve goal for stay: By discharge Patient Progress: Pt admitted for left femur fracture 2/ fall, has not yet went for surgery, ratingpain of 4/10, PRN pain medication given , See MAR. Problem: RISK FOR IMPAIRED SKIN INTEGRITY Goal: TISSUE INTEGRITY: SKIN & MUCOUS MEMBRANES Description: DEFINITION: Structural intactness and normal physiological function of skin and mucousmembranes. 1=Severely compromised, 2=Substantially compromised, 3=Moderately compromised, 4=Mildly compromised, 5=Not compromised. Flowsheets (Taken 12/14/2020 2908) Initial Score: 2 Target Score: 4 Plan of care reviewed with: Patient Patient specific goal for the day: pt will tolerate repositioning every 2hrs Patient specific goal for the stay: Have no skin breakdown Achieve goal for stay: By discharge Patient Progress: Pt admitted for left hip fracture, on bed rest, repositioned every 2-3hrs, Patientvoices pain with movement of that limb. Problem: IMPAIRED PHYSICAL MOBILITY Goal: MOBILITY Description: DEFINITION: Ability to move purposefully in own environment independently with or without assistive device. 1=Severely compromised / Total assistance: Performs less than 25% of activity; 2=Substantially compromised / Maximal assistance: Performs 25-49% of activity; 3=Moderately compromised / Moderate assistance: Performs 50-74% of activity; 4=Mildly compromised / Modified independence: Needs assistive device, supervision, minimal contact,or safety is a concern; 5=Not compromised / Complete independence. Flowsheets (Taken 12/14/2020 6143) Plan of care reviewed with: Patient Patient specific goal for the day: Patient will tolerate Q2 turn Patient specific goal for the stay: Patient will call if uncomfortable. Achieve goal for stay: By discharge Patient Progress: Patient tolerating Q2 turn, utilizing urinal and bed duggan. hysical Therapy - No Mooney PT - 12/14/2020 12:10 PM CDT PT continued to follow. Holding evaluation until after pt has hip procedure tentatively scheduled for tomorrow 12/15. Will follow up post surgery. No Mooney DPT Alpha pager [phone] Clinical Team - Arcelia Hudson RN - 12/14/2020 11:17 AM CDT DAILY SKIN CHECK BEHIND EARS-wnl ELBOWS- wnl ISCHIUM- redness, blanchable COCCYX- blanchable redness, dressing CDI HEELS- blanchable redness ANY OTHER AREAS OF NOTABLE CONCERN- scattered bruises, old surgical incision on bilateral kees REMOVE ALL MEDICAL DEVICES (if medically safe to do so) AND PERFORM SKIN CHECK BENEATH THOSE AREAS THAT THE DEVICE MAKES CONTACT WITH SKIN, evaluate rotating site/move device- Skin check completed with: ASHELY Polanco INTERVENTIONS ALREADY IN PLACE: INTERVENTIONS ADDED TODAY: WOCN consulted? YES/NO/NA: are Planning - Hali Mays LPN - 12/13/2020 9:46 PM CDT Problem: ACUTE PAIN Goal: CLIENT SATISFACTION: PAIN MANAGEMENT Description: DEFINITION: Extent of positive perception of nursing care to relieve pain. 1=Not at all satisfied, 2=Somewhat satisfied, 3=Moderately satisfied, 4=Very satisfied, 5=Completely satisfied. Flowsheets (Taken 12/13/2020 4489) Initial Score: 2 Target Score: 4 Plan of care reviewed with: Patient Patient specific goal for the day: Pt will ask for pain medication if experiencing pain level at 3/10 or above Patient specific goal for the stay: Control pain with oral pain medication Achieve goal for stay: By discharge Patient Progress: Pt admitted for left femur fracture 2/2 fall, has not yet went for surgery, ratingpain of 4/10, PRN pain medication given (see mar for administation) on re-assessment rating pain level 2/10. will continue to monitor. Problem: RISK FOR IMPAIRED SKIN INTEGRITY Goal: TISSUE INTEGRITY: SKIN & MUCOUS MEMBRANES Description: DEFINITION: Structural intactness and normal physiological function of skin and mucousmembranes. 1=Severely compromised, 2=Substantially compromised, 3=Moderately compromised, 4=Mildly compromised, 5=Not compromised. Flowsheets (Taken 12/13/2020 6872) Initial Score: 2 Target Score: 4 Plan of care reviewed with: Patient Patient specific goal for the day: pt will tolerate repositioning every 2hrs Patient specific goal for the stay: Have no skin breakdown Achieve goal for stay: By discharge Patient Progress: Pt admitted for left hip fracture, on bed rest, repositioned every 2-3hrs, tolerating fairly, refusing to be put on the left Care Planning - James Fuller RN - 12/13/2020 2:38 PM CDT Problem: ACUTE PAIN Goal: CLIENT SATISFACTION: PAIN MANAGEMENT Description: DEFINITION: Extent of positive perception of nursing care to relieve pain. 1=Not at all satisfied, 2=Somewhat satisfied, 3=Moderately satisfied, 4=Very satisfied, 5=Completely satisfied. Flowsheets (Taken 12/13/2020 6580) Initial Score: 2 Target Score: 4 Plan of care reviewed with: Patient Patient specific goal for the day: Pt will ask for pain medication if experiencing pain level at 3/10 or above Patient specific goal for the stay: Control pain with oral pain medication Achieve goal for stay: By discharge Patient Progress: Pt admitted for left femur fracture 2/2 fall, has not yet went for surgery, ratingpain of 4/10, PRN pain medication given (see mar for administation) on re-assessment rating pain level 2/10. will continue to monitor. Problem: RISK FOR IMPAIRED SKIN INTEGRITY Goal: TISSUE INTEGRITY: SKIN & MUCOUS MEMBRANES Description: DEFINITION: Structural intactness and normal physiological function of skin and mucousmembranes. 1=Severely compromised, 2=Substantially compromised, 3=Moderately compromised, 4=Mildly compromised, 5=Not compromised. Flowsheets (Taken 12/13/2020 4758) Initial Score: 2 Target Score: 4 Plan of care reviewed with: Patient Patient specific goal for the day: pt will tolerate repositioning every 2hrs Patient specific goal for the stay: Have no skin breakdown Achieve goal for stay: By discharge Patient Progress: Pt admitted for left hip fracture, on bed rest, repositioned every 2-3hrs, tolerating fairly, refusing to be put on the left Physical Therapy - No Mooney PT - 12/13/2020 12:16 PM CDT Orders received and chart reviewed. At this time skilled acute PT holding as pt is awaiting surgery. Will follow up when appropriate. MARIA E BassT Alpha pager [phone] Respiratory Therapy - Monik Morales, CHRISTIAN COUNSELOR - 12/13/2020 11:51 AM CDT Patient was seen to assess need for Nicotine Replacement Therapy. Patient is a current smokeless tobacco user, admits to 1 can every 5 days. Declined NRT. Patient declined tobacco education at this time. MARY CARMEN Francisco, CHRISTIAN COUNSELOR Respiratory Care Disease Management [phone] Case Mgmt - EnrriqueAiram rizzoca, SALES DEVELOPMENT SPECIALIST - 12/13/2020 10:22 AM CDT CASE MANAGEMENT / SOCIAL SERVICE TRANSITION PLAN - INITIAL ASSESSMENT TRANSITION PLAN: Awaiting Medical Doctor Recommendations for Transition Will Continue to Follow for Support and Progression Towards Final Transition Plan BARRIERS TO TRANSITION: Awaiting Therapy Recommendations Discharge Needs to be Determined COMMENTS / PATIENT AND FAMILY RESPONSE TO PLAN: Met with patient and daughter in room. Patient was resting but daughter helped provide information needed. Patient currently lives alone in an apartment, he is on the third floor but his apartment has an elevator. He uses his mobility scooter to get around to the senior center and to his daughter'shome. Daughter states he has a strong amount of family and friend support. Patient is a and utilizes VA benefits. Daughter was wondering the extent of which the VA covers expenses such as the ambulance ride. The daughter asked about hotels in the area and this case manger provided a list of hotels to review. Discharge planning will pend patient's recovery in the hospital. No other case management concerns at this time. ADMISSION DX: Lt Femoral Artery Neck fx PATIENT STATUS: OP in a Bed RELEASE OF INFORMATION: No SOURCES OF INFORMATION (See demographics for contact information): Family: Daughter CURRENT LIVING SITUATION / LEVEL OF ASSISTANCE: Lives alone Independent Cane Motorized Scooter COMMUNITY SERVICES: None HEALTHCARE DIRECTIVE: No POWER OF TRAVEL TICKETING REVIEWER: None FINANCIAL CONCERNS: No Concerns PRIMARY CARE PHYSICIAN: Yes René Laurent MD : Yes:VA notified via portal IS PATIENT'S ADMISSION ASSOCIATED WITH TIA, ISCHEMIC, OR HEMORRHAGIC STROKE?: No LANGUAGE / COMMUNICATION BARRIERS: No PATIENT / SUBSTITUTE DECISION MAKER GOAL UPON TRANSITION: First Choice: Home Health: [facility], Occupational Therapy and Physical Therapy Home: Family/Friend Support ANTICIPATED NEEDS, TRANSITION CHOICES OFFERED: Home Health: [facility], Occupational Therapy and Physical Therapy Home: Family/Friend Support [facility] Swing Bed RESOURCE(S) PROVIDED: discounted hotel list given to daughter staying DOES PATIENT HAVE CLOTHING TO WEAR AT DISCHARGE? Yes ANTICIPATED MODE OF TRANSPORT UPON DISCHARGE: Family Car VERIFIED CORRECT PHARMACY IS ENTERED FOR DISCHARGE: Yes - Pharmacy: [facility] GOLD TEAM (RETAIL) CURRENT READMISSION RISK SCORE Predictive Risk Score Risk of Unplanned Readmission: 7.2 Please refer to readmission risk assessment flowsheet for further details. SIGNED: GREGORIO Vu PRN Manager Hardware Weekend Case Management Occupational Therapy - Rossy Hogan OTR/L - 12/13/2020 10:16 AM CDT OT orders received and acknowledged. Spoke with RN and per chart review, patient "Will require left hip hemiarthroplasty when medically optimized." Will hold OT and follow up post-op as able/ appropriate. CASSANDRA Valero Alpha pager: [phone] are Planning - Rupal Morley RN - 12/13/2020 7:59 AM CDT Problem: ACUTE PAIN Goal: CLIENT SATISFACTION: PAIN MANAGEMENT Description: DEFINITION: Extent of positive perception of nursing care to relieve pain. 1=Not at all satisfied, 2=Somewhat satisfied, 3=Moderately satisfied, 4=Very satisfied, 5=Completely satisfied. Outcome: NOC Rating 2 Flowsheets (Taken 12/13/2020 0755) Initial Score: 3 Target Score: 4 Plan of care reviewed with: Patient Patient specific goal for the day: Pt will be able to rate pain on scale of 0-10 to staff Patient specific goal for the stay: Pt. will have adequate pain control with PO pain medication. Achieve goal for stay: By discharge Patient Progress: Pt. had moderate level pain and initially declined PRN Oxy due to fear of becomingaddicted. Pt. initially tried Tylenol but was unable to achieve comfort to sleep, given PRN Oxy (seeMAR). Pt. appeared comfortable and was able to sleep after. Will continue to monitor. Clinical Team - Rupal Morley RN - 12/13/2020 7:11 AM CDT DAILY SKIN CHECK BEHIND EARS- WDL ELBOWS- left blanchable redness ISCHIUM- WDL COCCYX- blanchable redness, redness between buttocks HEELS- bilateral blanchable redness ANY OTHER AREAS OF NOTABLE CONCERN- -scattered bruising bilateral upper extremities -old surgical scar to bilateral knees - bruising to left hip -blanchable redness to upper back REMOVE ALL MEDICAL DEVICES (if medically safe to do so) AND PERFORM SKIN CHECK BENEATH THOSE AREAS THAT THE DEVICE MAKES CONTACT WITH SKIN, evaluate rotating site/move device- Skin check completed with: Kishor Merritt RN INTERVENTIONS ALREADY IN PLACE: INTERVENTIONS ADDED TODAY: manage moisture, mepilex to coccyx WOCN consulted? YES/NO/NA: NA documented in this encounter Plan of Treatment Date Type Specialty Care Team Description 12/30/2020 Office Visit Orthopedics Ranjan Negron PA [address] [place] [address] [phone] 01/27/2021 Office Visit Orthopedics Johnathan Borges MD [address] [place] [address] [phone] Name Type Priority Associated Diagnoses Date/Ti me TISSUE EXAM PATH Routine Femoral neck fracture (HCC) 12/15/2020 8:55 AM CDT Name Type Priority Associated Diagnoses Order S chedule RENAL FUNCTION PANEL Lab Routine Early A M draw for labs until discontin ued starting 2020, 6 completed COMPLETE BLOOD COUNT Lab Routine Early A M draw for labs WITHOUT DIFFERENTIAL until d iscontinued starting 2020, 5 completed PROTIME/INR Lab Routine Early AM draw f or labs until discontin ued starting 2020, 3 completed TISSUE EXAM PATH Routine Femoral neck fracture Releas e Upon Ordering ([facility]) for 1 Occurrenc es starting 2020, 1 completed documented as of this encounter Implants Implanted Type Area Senior Director Device Shelf Model / Identifier Expiration Serial / Date Lot Hip Stem Actis Std Sz10 N 10111-100 Ea1 - [id number] Total Jt Left: [employer] 06/16/2027 [id number] / Implanted: Qty: 1 on 12/15/2020 by Johnathan Borges MD at [facility] Hip HIP / [id number] Hip Spacer Taper Depu12 14 -3 N 1363-08-000 Ea1 - [id number] Tot al Jt Left: [employer] 09/14/2030 [id number] / Implanted: Qty: 1 on 12/15/2020 by Johnathan Borges MD at [facility] Hip HIP / [id number] Hip Hd [place] Unipolr Mtl 54 N 136354-000 Ea1 - [id number] To ceferino Jt Left: [employer] 09/14/2030 1363-54-000 / Implanted: Qty: 1 on 12/15/2020 by Johnathan Borges MD at [facility] Hip HIP / [id number] documented as of this encounter Procedures Procedure Name Priority Date/Time Associated Comments Diagnosis PROTIME/INR Routine 12/18/2020 5:55 Results for this AM CDT procedure are i n the results section. COMPLETE BLOOD COUNT Routine 12/18/2020 5:55 Res ults for this WITHOUT DIFFERENTIAL AM CDT procedu re are in the results section. RENAL FUNCTION PANEL Routine 12/18/2020 5:55 Res ults for this AM CDT procedure are i n the results section. SARS-COV-2, INFLUENZA STAT 12/17/2020 10:01 Re sults for this A+B, AND/OR RSV AM CDT procedure ar e in NUCLEIC ACID TESTING the res ults PANEL section. PROTIME/INR Routine 12/17/2020 5:38 Results for this AM CDT procedure are i n the results section. COMPLETE BLOOD COUNT Routine 12/17/2020 5:38 Res ults for this WITHOUT DIFFERENTIAL AM CDT procedu re are in the results section. RENAL FUNCTION PANEL Routine 12/17/2020 5:38 Res ults for this AM CDT procedure are i n the results section. PROTIME/INR Routine 12/16/2020 5:55 Results for this AM CDT procedure are i n the results section. COMPLETE BLOOD COUNT Routine 12/16/2020 5:55 Res ults for this WITHOUT DIFFERENTIAL AM CDT procedu re are in the results section. RENAL FUNCTION PANEL Routine 12/16/2020 5:55 Res ults for this AM CDT procedure are i n the results section. XRAY PELVIS 1 OR 2 Routine 12/15/2020 10:11 Resul ts for this VIEWS AM CDT procedure are i n the results section. ARTHROPLASTY HIP 12/15/2020 6:57 Femoral neck BIPOLAR PARTIAL AM CDT fracture (HCC) Special Needs DePuy, 0730 start LAB ONLY-ABORH STAT 12/15/2020 6:44 AM CDT Re sults for this procedure are i n the results section . TYPE AND SCREEN Routine 12/15/2020 6:39 AM CDT R esults for this procedure are i n the results section . PROTIME/INR Routine 12/15/2020 6:39 AM CDT Resu lts for this procedure are i n the results section . COMPLETE BLOOD COUNT Routine 12/15/2020 6:39 AM CDT Results for this WITHOUT DIFFERENTIAL procedu re are in the results section . RENAL FUNCTION PANEL Routine 12/15/2020 6:39 AM CDT Results for this procedure are i n the results section . PROTIME/INR Timed STAT 12/14/2020 3:19 PM CDT Resu lts for this procedure are i n the results section . PROTIME/INR Timed Routine 12/14/2020 5:18 AM CDT Res ults for this procedure are i n the results section . COMPLETE BLOOD COUNT Routine 12/14/2020 5:18 AM CDT Results for this WITHOUT DIFFERENTIAL procedu re are in the results section . RENAL FUNCTION PANEL Routine 12/14/2020 5:18 AM CDT Results for this procedure are i n the results section . PROTIME/INR Routine 12/13/2020 5:39 AM CDT Resu lts for this procedure are i n the results section . COMPLETE BLOOD COUNT Routine 12/13/2020 5:39 AM CDT Results for this WITHOUT DIFFERENTIAL procedu re are in the results section . MAGNESIUM Routine 12/13/2020 5:39 AM CDT Resu lts for this procedure are i n the results section . RENAL FUNCTION PANEL Routine 12/13/2020 5:39 AM CDT Results for this procedure are i n the results section . documented in this encounter Results PROTIME/INR (12/18/2020 5:55 AM CDT) Pathologist Sig nature Protime 24.3 (H) 12.0 - 14.5 secs [facility] INR 2.4 2.0 - 3.5 [facility] Specimen Blood - Blood specimen (specimen) Narrative Performed At Normal INR reference range (patients not on oral [facility] anticoagulants) 0.9-1.1. INR Standard Intensity = (2.0 - 3.0) INR Higher Intensity = (2.5 - 3.5) Performing Organization Address City/State/ZIP Code Phon e Number [facility] [address] [facility] [address] [place] [address] COMPLETE BLOOD COUNT WITHOUT DIFFERENTIAL (12/18/2020 5:55 AM CDT) Pathologist Sig [facility] WBC 8.8 4.0 - 11.0 K/uL [facility] RBC 3.17 (L) 4.40 - 5.80 M/uL [facility] Hemoglobin 9.4 (L) 13.5 - 17.5 g/dL [facility] Hematocrit 29.8 (L) 40.0 - 50.0 % [facility] MCV 94.0 80.0 - 98.0 fL [facility] MCH 29.7 25.5 - 34.0 pg [facility] MCHC 31.5 31.5 - 36.5 g/dL [facility] RDW-CV 12.9 11.5 - 15.5 % [facility] RDW-SD 42.4 35.5 - 50.0 fl [facility] Platelet Count 155 140 - 400 K/uL [facility] MPV 11.4 8.5 - 12.0 fL [facility] Specimen Blood - Blood specimen (specimen) Performing Organization Address City/State/ZIP Code Phon e Number [facility] [address] [facility] [place] [address] RENAL FUNCTION PANEL (12/18/2020 5:55 AM CDT) [facility] nature Glucose 100 70 - 100 mg/dL [facility] BUN 52 (H) 6 - 22 mg/dL [facility] Creatinine 2.12 (H) 0.80 - 1.30 [facility] mg/dL [place] BUN/Creatinine Ratio 24.5 10.0 - 25.0 [facility] Sodium 138 135 - 145 meq/L [facility] Potassium 4.8 3.5 - 5.3 meq/L [facility] Chloride 113 (H) 99 - 110 meq/L [facility] CO2 18 (L) 20 - 29 meq/L [facility] Anion Gap with K 12 6 - 20 meq/L [facility] Calcium 8.4 (L) 8.5 - 10.5 [facility] mg/dL [place] Phosphorus 3.1 2.5 - 4.5 mg/dL [facility] Albumin 3.2 (L) 3.5 - 5.0 g/dL [facility] Corrected Calcium 9.0 8.5 - 10.5 [facility] mg/dL [place] Age 85 Years [facility] eGFR Non- 30 (L) >=60 [facility] mL/min/1.73m2 [place] eGFR 36 (L) >=60 [facility] Pan[place]ian mL/min/1.73m2 [place] Specimen Blood - Blood specimen (specimen) Performing Organization Address City/[facility] Code Phon e Number [facility] [address] [facility] [address] [phone] SARS-COV-2, INFLUENZA A+B, AND/OR RSV NUCLEIC ACID TESTING PANEL (12/17/2020 10:01 AM CDT) Pathologist Sig nature SARS-CoV-2 Not Detected Not Detected [facility] Specimen Respiratory - Nasopharyngeal swab (speci men) Narrative Performed At Please read entire report. Results for Influenza A and B or [facility] RSV may also be available depending on which viruses y our provider selected for testing. Your Covid-19 test is negative: 1)Avoiding close contact is s till recommended. 2)Cover your coughs and snee zes. 3)Wash your hands often with soap and wate r for at least 20 seconds or use an alcohol-based concrete stone finishing supervisor containing over 60% alcohol. Avoid touch ing your face. 4)Avoid sharing personal household items, including dishes, cups, utensils, towels, clothing, or bedding. These items should be cleaned thoroughly with soap and water after use. Clean all "high touch" surfaces i n your home daily. 5) Monitor your symptoms. Contact your provider if you are feeling worse. If you have shortness of breath or difficulty breathing, call 911. This assay is for in vitro diagnostic use under FDA Emergency Use Authorization only. Optimal performance of this test requires appropriate specimen collection, storage, and transport to the regional rehabilitation hospital site. Detection of SARS-CoV-2 RNA may be affected by sample collection methods, patient factors (eg, presence of symptoms), and/or stage of infection. False-negative results may arise from degradation of v iral RNA during shipping/storage. Results should be interpreted by a trained professiona l in conjunction with the patient s history and clinical signs and symptoms, and epidemiological risk factors. Negative (Not Detected) results do not preclude infect ion with the SARS-CoV-2 virus and should not be the sole b asis of patient treatment/management or public health decis ion. Follow up testing should be performed according to the current CDC recommendations. This test was performed by polymerase chain reaction ( PCR) on the GeneXpert instrument. Performing Organization Address City/[facility] Code Phon e Number [facility] [address] [facility] [address] PROTIME/INR (12/17/2020 5:38 AM CDT) Pathologist Sig nature Protime 19.9 (H) 12.0 - 14.5 secs [facility] INR 1.8 (L) 2.0 - 3.5 [facility] Specimen Blood - Blood specimen (specimen) Narrative Performed At Normal INR reference range (patients not on oral [facility] anticoagulants) 0.9-1.1. INR Standard Intensity = (2.0 - 3.0) INR Higher Intensity = (2.5 - 3.5) Performing Organization Address [facility] Phon e Number [facility] [address] [facility] [address] COMPLETE BLOOD COUNT WITHOUT DIFFERENTIAL (12/17/2020 5:38 AM CDT) Pathologist Sig nature WBC 8.9 4.0 - 11.0 K/uL [facility] RBC 3.13 (L) 4.40 - 5.80 M/uL [facility] Hemoglobin 9.4 (L) 13.5 - 17.5 g/dL [facility] Hematocrit 29.7 (L) 40.0 - 50.0 % [facility] MCV 94.9 80.0 - 98.0 fL [facility] MCH 30.0 25.5 - 34.0 pg [facility] MCHC 31.6 31.5 - 36.5 g/dL [facility] RDW-CV 13.0 11.5 - 15.5 % [facility] RDW-SD 43.0 35.5 - 50.0 fl [facility] Platelet Count 135 (L) 140 - 400 K/uL [facility] MPV 11.5 8.5 - 12.0 fL [facility] Specimen Blood - Blood specimen (specimen) Performing Organization Address City/[facility] Phon e Number [facility] [address] [facility] [address] RENAL FUNCTION PANEL (12/17/2020 5:38 AM CDT) Pathologist Sig nature Glucose 99 70 - 100 mg/dL [facility] BUN 50 (H) 6 - 22 mg/dL [facility] Creatinine 2.15 (H) 0.80 - 1.30 [facility] mg/dL [place] BUN/Creatinine Ratio 23.3 10.0 - 25.0 [facility] Sodium 139 135 - 145 meq/L [facility] Potassium 4.9 3.5 - 5.3 meq/L [facility] Chloride 113 (H) 99 - 110 meq/L [facility] CO2 18 (L) 20 - 29 meq/L [facility] Anion Gap with K 13 6 - 20 meq/L [facility] Calcium 8.3 (L) 8.5 - 10.5 [facility] mg/dL [place] Phosphorus 3.5 2.5 - 4.5 mg/dL [facility] Albumin 3.3 (L) 3.5 - 5.0 g/dL [facility] Corrected Calcium 8.9 8.5 - 10.5 [facility] mg/dL [place] Age 85 Years [facility] eGFR Non- 29 (L) >=60 [facility] mL/min/1.73m2 [place] eGFR 35 (L) >=60 [facility] [place] mL/min/1.73m2 [place] Specimen Blood - Blood specimen (specimen) Performing Organization Address City/[facility]/ZIP Code Phon e Number [facility] [address] [facility] [place], [place] [address] [phone] PROTIME/INR (12/16/2020 5:55 AM CDT) Pathologist Sig nature Protime 19.2 (H) 12.0 - 14.5 secs [facility] INR 1.7 (L) 2.0 - 3.5 [facility] Specimen Blood - Blood specimen (specimen) Narrative Performed At Normal INR reference range (patients not on oral [facility] anticoagulants) 0.9-1.1. INR Standard Intensity = (2.0 - 3.0) INR Higher Intensity = (2.5 - 3.5) Performing Organization Address City/[facility]/ZIP Code Phon e Number [facility] [address] [facility] [address] [phone] COMPLETE BLOOD COUNT WITHOUT DIFFERENTIAL (12/16/2020 5:55 AM CDT) Pathologist Sig nature WBC 11.6 (H) 4.0 - 11.0 K/uL [facility] RBC 3.19 (L) 4.40 - 5.80 M/uL [facility] Hemoglobin 9.7 (L) 13.5 - 17.5 g/dL [facility] Hematocrit 30.0 (L) 40.0 - 50.0 % [facility] MCV 94.0 80.0 - 98.0 fL [facility] MCH 30.4 25.5 - 34.0 pg [facility] MCHC 32.3 31.5 - 36.5 g/dL [facility] RDW-CV 12.8 11.5 - 15.5 % [facility] RDW-SD 41.9 35.5 - 50.0 fl [facility] Platelet Count 123 (L) 140 - 400 K/uL [facility] MPV 11.7 8.5 - 12.0 fL [facility] Specimen Blood - Blood specimen (specimen) Performing Organization Address City/State/ZIP Code Phon e Number [facility] [address] [facility] [place] [address] RENAL FUNCTION PANEL (12/16/2020 5:55 AM CDT) Pathologist Sig nature Glucose 131 (H) 70 - 100 mg/dL [facility] BUN 42 (H) 6 - 22 mg/dL [facility] Creatinine 2.01 (H) 0.80 - 1.30 [facility] mg/dL [place] BUN/Creatinine Ratio 20.9 10.0 - 25.0 [facility] Sodium 139 135 - 145 meq/L [facility] Potassium 5.0 3.5 - 5.3 meq/L [facility] Chloride 115 (H) 99 - 110 meq/L [facility] CO2 15 (L) 20 - 29 meq/L [facility] Anion Gap with K 14 6 - 20 meq/L [facility] Calcium 8.1 (L) 8.5 - 10.5 [facility] mg/dL [place] Phosphorus 2.9 2.5 - 4.5 mg/dL [facility] Albumin 3.3 (L) 3.5 - 5.0 g/dL [facility] Corrected Calcium 8.7 8.5 - 10.5 [facility] mg/dL [place] Age 85 Years [facility] eGFR Non- 32 (L) >=60 [facility] [place] mL/min/1.73m2 [place] eGFR 38 (L) >=60 [facility] [place] mL/min/1.73m2 [place] Specimen Blood - Blood specimen (specimen) Performing Organization Address City/State/ZIP Code Phon e Number [facility] [address] [facility] [place] [address] XRAY PELVIS 1 OR 2 VIEWS (12/15/2020 10:11 AM CDT) Specimen Narrative Performed At [facility] Patient Name: BRICE PALMER Date of : 1935 Procedure: XRAY PELVIS 1 OR 2 VIEWS Date of Service: 12/15/2020 EXAM: XRAY PELVIS 1 OR 2 VIEWS INDICATION:L hip allen COMPARISON(S): None Available FINDINGS/IMPRESSION: Postoperative changes left ANNIE. 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 Finalized by: Miya Velasquez MD on 2020 12:01 PM CDT Patient/Procedure Information: [facility] MRN/LISA: [id number] Order Number: [id number] Accession Number: [id number] Ordering Provider: RAISA PEREZ Authorizing Provider: RAISA PEREZ Procedure Note Jose, Radiantres - 12/15/2020 12:03 PM CDT Patient Name: BRICE PALMER Date of : 1935 Procedure: XRAY PELVIS 1 OR 2 VIEWS Date of Service: 12/15/2020 EXAM: XRAY PELVIS 1 OR 2 VIEWS INDICATION:L hip allen COMPARISON(S): None Available FINDINGS/IMPRESSION: Postoperative changes left ANNIE. Hypertro phic degenerative changes right hip and SI joints. Finalized by: Miya Velasquez MD on 2020 12:01 PM CDT Patient/Procedure Information: [facility] MRN/LISA: [id number] Order Number: [id number] Accession Number: [id number] Ordering Provider: RAISA PEREZ Authorizing Provider: RAISA PEREZ Performing Organization Address City/[facility]/ZIP [facility] Phon e Number [id number] LAB ONLY-ABORH (12/15/2020 6:44 AM CDT) Pathologist Sig nature ABO Type B [address] BLOOD BA NK Rh Type Positive [address] BLOOD BA NK Specimen Blood - Blood specimen (specimen) Performing Organization Address [facility]/[address] BLOOD BANK [address] [place] [address] TYPE AND SCREEN (12/15/2020 6:39 AM CDT) Pathologist Sig nature ABO Type B [address] BLOOD BANK Rh Type Positive [address] BLOOD BANK Antibody Screen Negative [address] Comment: BLOOD BANK Allogenic Red Cells Available 8CD 12/15/2020 Expiration Date 12/18/2020 23:[address] BLOOD BANK Specimen Blood - Blood specimen (specimen) Performing Organization Address [address] BLOOD BANK [address] [place] [address] PROTIME/INR (12/15/2020 6:39 AM CDT) Pathologist Sig [facility] Protime 17.5 (H) 12.0 - 14.[address] INR 1.6 (L) 2.0 - 3.[address] Specimen Blood - Blood specimen (specimen) Narrative Performed At Normal INR reference range (patients not on oral antic oagulants) [address] 0.9-1.1. INR Standard Intensity = (2.0 - 3.0) INR Higher Intensity = (2.5 - 3.5) Performing Organization Address [facility]/[address] [address] COMPLETE BLOOD COUNT WITHOUT DIFFERENTIAL (12/15/2020 6:39 AM CDT) Pathologist Sig [facility] WBC 7.9 4.0 - 11.0 K/uL [address] RBC 3.74 (L) 4.40 - 5.80 M/uL [address] Hemoglobin 11.4 (L) 13.5 - 17.5 g/dL [address] Hematocrit 34.8 (L) 40.0 - 50.0 % [address] MCV 93.0 80.0 - 98.[address] MCH 30.5 25.5 - 34.[address] MCHC 32.8 31.5 - 36.5 g/dL [address] RDW-CV 12.6 11.5 - 15.5 % [address] RDW-SD 43.1 35.5 - 50.[address] Platelet Count 112 (L) 140 - 400 K/uL [address] MPV 11.2 8.5 - 12.[address] Specimen Blood - Blood specimen (specimen) Performing Organization Address City/State/ZIP Code Phon e Number [address] [place] [address] RENAL FUNCTION PANEL (12/15/2020 6:39 AM CDT) [facility] Glucose 97 70 - 100 mg/dL [address] BUN 43 (H) 6 - 22 mg/dL [address] Creatinine 1.83 (H) 0.80 - 1.[address] mg/dL BUN/Creatinine Ratio 23.5 10.0 - 25.[address] Sodium 140 135 - 145 meq/L [address] Potassium 4.6 3.5 - 5.3 meq/L [address] Chloride 115 (H) 99 - 110 meq/L [address] CO2 16 (L) 20 - 29 meq/L [address] Anion Gap with K 14 6 - 20 meq/L [address] Calcium 8.4 (L) 8.5 - 10.[address] mg/dL Phosphorus 2.7 2.5 - 4.5 mg/dL [address] Albumin 3.2 (L) 3.5 - 5.0 g/dL [address] Corrected Calcium 9.0 8.5 - 10.[address] mg/dL Age [address] eGFR Non- 35 (L) >=[address] [place] mL/min/1.73m2 eGFR 43 (L) >=[address] mL/min/1.73m2 Specimen Blood - Blood specimen (specimen) Performing Organization Address [facility] Phon e Number [address] [place] [address], [place] [address] PROTIME/INR (12/14/2020 3:19 PM CDT) Pathologist Sig nature Protime 19.5 (H) 12.0 - 14.[address] INR 1.8 (L) 2.0 - 3.[address] Specimen Blood - Blood specimen (specimen) Narrative Performed At Normal INR reference range (patients not on oral antic oagulants) [address] 0.9-1.1. INR Standard Intensity = (2.0 - 3.0) INR Higher Intensity = (2.5 - 3.5) Performing Organization Address [facility] Phon e Number [address] [place] [address] PROTIME/INR (12/14/2020 5:18 AM CDT) Pathologist Sig nature Protime 22.6 (H) 12.0 - 14.[address] INR 2.2 2.0 - 3.[address] Specimen Blood - Blood specimen (specimen) Narrative Performed At Normal INR reference range (patients not on oral antic oagulants) [address] 0.9-1.1. INR Standard Intensity = (2.0 - 3.0) INR Higher Intensity = (2.5 - 3.5) Performing Organization Address [facility] Phon e Number [address] [place] [address], [place] [address] COMPLETE BLOOD COUNT WITHOUT DIFFERENTIAL (12/14/2020 5:18 AM CDT) Pathologist Sig nature WBC 10.2 4.0 - 11.0 K/uL [address] RBC 4.14 (L) 4.40 - 5.80 M/uL [address] Hemoglobin 12.5 (L) 13.5 - 17.5 g/dL [address] Hematocrit 38.6 (L) 40.0 - 50.0 % [address] MCV 93.2 80.0 - 98.[address] MCH 30.2 25.5 - 34.[address] MCHC 32.4 31.5 - 36.5 g/dL [address] RDW-CV 12.4 11.5 - 15.5 % [address] RDW-SD 43.1 35.5 - 50.[address] Platelet Count 131 (L) 140 - 400 K/uL [address] MPV 11.4 8.5 - 12.[address] Specimen Blood - Blood specimen (specimen) Performing Organization Address City/[facility] Phon e Number [address] [place] [address] RENAL FUNCTION PANEL (12/14/2020 5:18 AM CDT) [facility] Glucose 104 (H) 70 - 100 mg/dL [address] BUN 49 (H) 6 - 22 mg/dL [address] Creatinine 2.04 (H) 0.80 - 1.[address] mg/dL BUN/Creatinine Ratio 24.0 10.0 - 25.[address] Sodium 140 135 - 145 meq/L [address] Potassium 4.7 3.5 - 5.3 meq/L [address] Chloride 112 (H) 99 - 110 meq/L [address] CO2 18 (L) 20 - 29 meq/L [address] Anion Gap with K 15 6 - 20 meq/L [address] Calcium 8.7 8.5 - 10.[address] mg/dL Phosphorus 2.8 2.5 - 4.5 mg/dL [address] Albumin 3.5 3.5 - 5.0 g/dL [address] Corrected Calcium 9.1 8.5 - 10.5 [place] [address] [facility] mg/dL Age 85 Years [place] [address] [facility] eGFR Non- 31 (L) >=[address] [place] mL/min/1.73m2 eGFR 38 (L) >=[address] mL/min/1.73m2 Specimen Blood - Blood specimen (specimen) Performing Organization Address City/[facility]/ZIP Code Phon e Number [address] [place] [address], [place] [address] PROTIME/INR (12/13/2020 5:39 AM CDT) Pathologist Sig nature Protime 28.7 (H) 12.0 - 14.[address] INR 3.0 2.0 - 3.[address] Specimen Blood - Blood specimen (specimen) Narrative Performed At Normal INR reference range (patients not on oral antic oagulants) [address] 0.9-1.1. INR Standard Intensity = (2.0 - 3.0) INR Higher Intensity = (2.5 - 3.5) Performing Organization Address [facility]/[address] [place] [address] COMPLETE BLOOD COUNT WITHOUT DIFFERENTIAL (12/13/2020 5:39 AM CDT) Pathologist Sig nature WBC 12.1 (H) 4.0 - 11.0 K/uL [address] RBC 4.45 4.40 - 5.80 M/uL [address] Hemoglobin 13.1 (L) 13.5 - 17.5 g/dL [address] Hematocrit 40.2 40.0 - 50.0 % [address] MCV 90.3 80.0 - 98.[address] MCH 29.4 25.5 - 34.[address] MCHC 32.6 31.5 - 36.5 g/dL [address] RDW-CV 12.4 11.5 - 15.5 % [address] RDW-SD 40.6 35.5 - 50.[address] Platelet Count 143 140 - 400 K/uL [address] MPV 11.5 8.5 - 12.[address] Specimen Blood - Blood specimen (specimen) Performing Organization Address [facility] Phon e Number [address] [place] [address], [place] [address] MAGNESIUM (12/13/2020 5:39 AM CDT) Pathologist Sig nature Magnesium 2.3 1.8 - 2.4 mg/dL [place] [address] [facility] Specimen Blood - Blood specimen (specimen) Performing Organization Address [facility] Phon e Number [address] [place] [address] RENAL FUNCTION PANEL (12/13/2020 5:39 AM CDT) [facility] Glucose 105 (H) 70 - 100 mg/dL [place] [address] [facility] BUN 56 (H) 6 - 22 mg/dL [address] Creatinine 2.18 (H) 0.80 - 1.[address] mg/dL BUN/Creatinine Ratio 25.7 (H) 10.0 - 25.[address] Sodium 139 135 - 145 meq/L [address] Potassium 4.4 3.5 - 5.3 meq/L [address] Chloride 109 99 - 110 meq/L [address] CO2 19 (L) 20 - 29 meq/L [address] Anion Gap with K 15 6 - 20 meq/L [address] Calcium 9.0 8.5 - 10.[address] mg/dL Phosphorus 2.9 2.5 - 4.5 mg/dL [address] Albumin 3.7 3.5 - 5.0 g/dL [address] Corrected Calcium 9.2 8.5 - 10.5 [place] [address] [facility] mg/dL Age [address] eGFR Non- 29 (L) >=[address] [place] mL/min/1.73m2 eGFR 35 (L) >=[address] mL/min/1.73m2 Specimen Blood - Blood specimen (specimen) Performing Organization Address [facility] Phon e Number [place] [address] [facility] [address] [place] [address] documented in this encounter Visit Diagnoses Diagnosis S/P hip hemiarthroplasty - Primary Femoral neck fracture (HCC) Closed fracture of unspecified part of n abby of femur Chronic kidney disease, unspecified CKD stage Chronic atrial fibrillation (HCC) Atrial fibrillation Chronic congestive heart failure, unspec ified heart failure type (HCC) Subcapital fracture of femur, left, clos ed, initial encounter (HCC) documented in this encounter Discharge Diagnoses Not on filedocumented in this encounter Administered Medications Medication Order MAR Action Action Date Dose Rate Site .Anticoagulation (WARFARIN) therapy nurs ing reminder Anti-coag reminder, First dose on Tue12/16/20 at 1000, Until Discontinued acetaminophen (TYLENOL) tablet 650 mg Given 12/18/2020 6:04 AM CDT 650 mg 650 mg, Oral, Every six hours, First dose on Tue12/15/20 at 1800, Until Discontinued, Post - Op, Alternate with tramadol (ULTRAM); Total dose of acetaminophen from all acetaminophen containing products should not exceed 4 g (4000 mg) per day. Given 12/17/2020 11:53 PM CDT 650 mg Given 12/17/2020 5:29 PM CDT 650 mg aspirin enteric coated tablet 81 mg Given 12/18/2020 8:59 AM CDT 81 mg 81 mg, Oral, DAILY, First dose on Tue12/17/20 at 0900, Until Discontinued, Tablet should be swallowed whole and not be divided, crushed or chewed. Given 12/17/2020 9:02 AM CDT 81 mg bisacodyl (DULCOLAX) enteric coated tablet 5 Given 8:59 AM CDT 5 mg mg 5 mg, Oral, Two times a day prn, Starting on Tue12/15/20 at 1219, Until Discontinued, constipation, Post - Op, SECOND choice or per patient preference calcium carbonate (TUMS) chewable tablet 1,000 mg 1,000 mg, Oral, Every four hours prn, Starting on Tue12/12/20 at 2342, Until Discontinued, other (Specify), acid reflux, Use FIRST for acid reflux. If ineffective after 60 minutes, may proceed to next jade ce option or, if no other options, contact provider. furosemide (LASIX) tablet 40 mg Given 12/18/2020 8:59 AM CDT 40 mg 40 mg, Oral, DAILY, First dose on Tue12/16/20 at 1040, Until Discontinued Given 12/17/2020 9:02 AM CDT 40 mg Given 12/16/2020 11:53 AM CDT 40 mg melatonin tablet 3 mg Given 12/17/2020 8:42 PM CDT 3 mg 3 mg, Oral, Bedtime, First dose on Tue12/12/20 at 2345, Until Discontinued Given 12/16/2020 7:54 PM CDT 3 mg Given 12/15/2020 8:23 PM CDT 3 mg metoprolol tartrate (LOPRESSOR) tablet 2 5 mg Given 12/18/2020 8:59 AM CDT 25 mg 25 mg, Oral, DAILY, First dose on Tue12/13/20 at 0900, Until Discontinued, Hold for SBP less than 100 Hold for HR less than 60 Given 12/17/2020 9:02 AM CDT 25 mg Given 12/16/2020 8:23 AM CDT 25 mg nalOXone (NARCAN) injection solution (vi al) 0.2 mg 0.2 mg, Injection, Every two minutes prn , Starting on Tue12/12/20 at 2339, Until Discontinued, other (Specify), opioid induced respirat ory depression - PARTIAL reversal, 0.5 mL, PARTIAL REVERSAL/RESPI RATORY DEPRESSION If respiratory rate less than 8/minute - call rapid response and administer (un til respiratory rate increases to 10/minute). Give IV (preferred), IM or S UBQ nalOXone (NARCAN) injection solution (vi al) 0.4 mg 0.4 mg, Injection, Every two minutes prn , Starting on Tue12/12/20 at 2339, Until Discontinued, other (Specify), opioid in duced respiratory arrest - FULL reversal, 1 mL, FULL REVERSAL/RESPIRATORY ARREST If patient is not breathing - call CODE BLUE and administer. Give IV (preferred), IM or SUBQ ondansetron (ZOFRAN) injection solution 4 mg Given 12/16/2020 6:04 PM CDT 4 mg 4 mg, IV, Every four hours prn, Starting on Tue12/15/20 at 0922, Until Discontinued, nausea, vomiting, 2 mL, PACU - Continue Post-Op, Use FIRST for nausea/vomiting. If ineffective after 15 minutes use haloperidol if ordered for nausea/vomiting. If preference is to further dilute for IV administration: First draw up patient-specific dose, then dilute to 10 mL with 0.9% sodium chloride. polyethylene glycol (MIRALAX) packet 1 Given 12/18/2020 9:00 AM CDT 1 packet packet 1 packet, Oral, Daily, First dose on Tue12/14/20 at 0900, Until Discontinued, Dissolve in 8 ounces of water, juice, soda, coffee, tea Do NOT give if patient on thickened liquids. Contact provider for alternative if needed. Given 12/17/2020 9:02 AM CDT 1 packet Given 12/16/2020 8:24 AM CDT 1 packet senna-docusate sodium Given 12/18/2020 9:00 AM CDT 2 tablets (SENOKOT-S;PERICOLACE) tablet 2 tablet 2 tablet, Oral, Two times a day, First dose on Tue12/15/20 at 2100, Until Discontinued, Post - Op, Hold if 2 loose stools occur in the last 24 hours. Given 12/17/2020 8:41 PM CDT 2 tablets Given 12/17/2020 9:02 AM CDT 2 tablets sodium chloride 0.9% flush (adult) 10 mL Given 12/18/2020 9:02 AM CDT 10 mL 10 mL, IV, Two times a day and prn, First dose on Tue12/13/20 at 0900, Until Discontinued, 10 mL, Flush PIV line as scheduled and as often as necessary before and after meds. Use a push / pause technique when flushing to create turbulence. Given 12/17/2020 8:42 PM CDT 10 mL Given 12/17/2020 8:56 AM CDT 10 mL traMADol (ULTRAM) tablet 50 mg Given 12/18/2020 8:59 AM CDT 50 mg 50 mg, Oral, Every six hours, First dose on Tue12/15/20 at 1800, Until Discontinued, Post - Op, Alternate with acetaminophen (TYLENOL). Recommended maximum daily dose of traMADol is 400 mg. Recommended maximum daily dose in patients greater than 75 years of age is 300 mg Given 12/18/2020 4:13 AM CDT 50 mg Given 12/17/2020 8:41 PM CDT 50 mg Medication Order MAR Action Action Date Dose Rate Site acetaminophen (TYLENOL) tablet Given 12/14/2020 3:56 PM CDT 650 mg 650 mg 650 mg, Oral, Every four hours prn, Starting on Tue12/12/20 at 2342, Until Tue12/15/20 at 1255, mild pain, Use FIRST for mild pain. If inadequate response in 60 minutes, may proceed to next choice option or if no other options, contact provider. Adult patients: Total dose of acetaminophen from all acetaminophen containing products should not exceed 4 grams (4000 mg) per day. Pediatric Patients 0 - 3 months: Maximum of 60 mg/kg/24 hours of acetaminophen. Pediatric Patients older than 3 months: Maximum of 75 mg/kg/24 hours of acetaminophen (Never exceeding 4 grams/day). Given 12/14/2020 10:06 AM CDT 650 mg Given 12/13/2020 8:20 PM CDT 650 mg ceFAZolin (ANCEF) 2000 mg/20 mL sterile Given 12/15/2020 11:20 P M CDT 2,000 mg water IV syringe 2,000 mg, IV, Every eight hours, 2 doses, First dose on Tue12/15/20 at 1600, Last dose on Tue12/16/20 at 0000, 20 mL, PACU - Continue Post-Op, Administer as IV push over 4 minutes. Given 12/15/2020 4:01 PM CDT 2,000 mg enoxaparin (LOVENOX) subcutaneous injection Given 12/16/2020 8:24 AM CDT 40 mg solution 40 mg 40 mg, Subcutaneous, Daily, 28 doses, First dose on Tue12/16/20 at 0800, Last dose on Tue01/12/21 at 0800, Post - Op, Begin 0800 on first postop day. To avoid the loss of drug when using the 30 mg and 40 mg prefilled syringes, do not expel the air bubble from the syringe before the injection. For ADULT patients: Administration should be alternated between the left and right anterolateral and left and right posterolateral abdominal wall. The whole length of the needle should be introduced into a skin fold held between the thumb and forefinger; the skin fold should be held throughout the injection. To minimize bruising, do not rub the injection site after completion of the injection. For PEDIATRIC patients: Administration should be alternated between appropriate sites for patient age/weight (infants/small children = upper thigh; older children/adolescents = left and right anterolateral and left and right posterolateral abdominal wall). During administration to infants/smaller children sometimes the whole length of the needle is not "introduced" during the injection. Administer injection into a skin fold held between the thumb and forefinger; the skin fold should be held throughout the injection. To minimize bruising, do not rub the injection site after completion of the injection. fentaNYL (100 mcg/2 mL) preservative enrique e injection solution 1 dose, Starting on Tue12/15/20 at 1010, Until Tue12/15/20 at 1013, [facility] glen override fentaNYL 100 mcg/2 mL preservative free Given 12/15/2020 10:13 A M CDT 25 mcg injection solution 25 mcg 25 mcg, IV, Every ten minutes prn, 12 doses, Starting on Tue12/15/20 at 0938, Until Tue12/15/20 at 1225, other (Specify), moderate pain scale 4-6 or severe pain above 7 if hydromorphone not ordered (max dose of 300 mcg), 0.5 mL, PACU, Use only Anesthesia's orders for moderate or severe pain while in PACU or recovery care lactated ringers IV solution Already Infusing 12/15/2020 9:38 AM CDT 125 mL/hr IV, at 125 mL/hr, Continuous, Starting on Tue12/15/20 at 0940, Until Tue12/15/20 at 1225, PACU, TKO current fluids if patient is going to Day Unit / ARU and tolerating PO fluids without nausea. oxyCODONE (OXY-IR) tablet 10 mg Given 12/14/2020 5:23 AM CDT 10 mg 10 mg, Oral, Every six hours prn, Starting on Tue12/12/20 at 2344, Until Tue12/15/20 at 1249, severe pain oxyCODONE (OXY-IR) tablet 5 mg Given 12/15/2020 4:44 AM CDT 5 mg 5 mg, Oral, Every six hours prn, Starting on Tue12/12/20 at 2344, Until Tue12/15/20 at 1249, moderate pain Given 12/14/2020 9:00 PM CDT 5 mg Given 12/14/2020 12:32 PM CDT 5 mg phytonadione (vitamin K) (MEPHYTON) tablet 5 Given 12:32 PM CDT 5 mg mg 5 mg, Oral, One time, 1 dose, On 12/13/20 at 1250 phytonadione (Vitamin K, AQUAMEPHYTON) 5 mg in Given 0 12/14/2020 10:12 AM CDT 5 mg sodium chloride 0.9% 50 mL 5 mg, IV, One time, 1 dose, On 12/14/20 at 0950, 50 mL, Protect from light during administration. sodium chloride 0.9% IV solution New Bag 12/12/2020 11:58 PM CDT 100 mL/hr IV, at 100 mL/hr, Continuous, Starting on Tue12/12/20 at 2305, Until Tue12/14/20 at 0811, 1,000 mL sodium chloride 0.9% IV solution New Bag 12/13/2020 10:30 AM CDT 100 mL/hr IV, at 100 mL/hr, Continuous, Starting on 12/13/20 at 0100, Until 12/14/20 at 0811, 1,000 mL Already Infusing 12/13/2020 1:45 AM CDT 100 mL/hr sodium chloride 0.9% IV solution Rate Change 12/14/2020 3:56 PM CDT 100 mL/hr IV, at 100 mL/hr, Continuous, Starting on 12/14/20 at 0910, Until 12/15/20 at 1255, 1,000 mL New Bag 12/14/2020 2:33 PM CDT 125 mL/hr Rate Change 12/14/2020 9:20 AM CDT 125 mL/hr sodium chloride 0.9% IV solution New Bag 12/16/2020 4:56 AM CDT 100 mL/hr IV, at 100 mL/hr, Continuous, Starting on 12/15/20 at 1225, Until Tu12/16/20 at 0835, 1,000 mL, Post - Op New Bag 12/15/2020 8:49 PM CDT 100 mL/hr New Bag 12/15/2020 4:04 PM CDT 100 mL/hr warfarin (COUMADIN) tablet 2.5 mg Given 12/18/2020 9:02 AM CDT 2.5 mg 2.5 mg, Oral, Warfarin one time dose, 1 dose, On Khalida 12/18/20 at 1000, If patient is receiving tube feeding, hold tube feeding 1 hour before and 1 hour after warfarin administration. If unable to administer dose intact, wear universal precautions (one pair of gloves). warfarin (COUMADIN) tablet 5 mg Given 12/16/2020 10:20 AM CDT 5 mg 5 mg, Oral, Warfarin one time dose, 1 dose, On Tue12/16/20 at 1000, If patient is receiving tube feeding, hold tube feeding 1 hour before and 1 hour after warfarin administration. If unable to administer dose intact, wear universal precautions (one pair of gloves). warfarin (COUMADIN) tablet 5 mg Given 12/17/2020 11:37 AM CDT 5 mg 5 mg, Oral, Warfarin one time dose, 1 dose, On Tue12/17/20 at 1000, If patient is receiving tube feeding, hold tube feeding 1 hour before and 1 hour after warfarin administration. If unable to administer dose intact, wear universal precautions (one pair of gloves). documented in this encounter Active and Recently Administered Medications Times are shown in CDT. Medication Order 12/16/2020 12/17/2020 12/18/2020 .Anticoagulation (WARFARIN) therapy nursing reminder 1 005 (Noted Reminder - Provider: Kristy Berrios RN)1627 (Noted Reminder - Provider: Kristy Berrios RN) 0851 (Noted Reminder - Provider: Maribell Burgess RN)1234 (Noted Reminder - Provider: Maribell Burgess RN) 0837 (Noted Reminder - Provider: Maribell crump RN)1400 (Due) Anti-coag reminder, First dose on Tue12/16/20 at 1000, Until Disc ontinued acetaminophen (TYLENOL) tablet 650 mg(Linked Group 1) 0549 (Given - Provider: Uzair Franco RN)1152 (Given - Provider: Kristy Berrios RN)1819 (Held - Provider: Kristy Berrios RN - Comment: Pt aspirating on food while eating supper-will hold for now)1953 (Given - Provider: Donald Wilson RN) 0604 (Given - Provider: Donald Wilson RN)1137 (Given - Provider: Maribell Burgess RN)1729 (Given - Provider: Maribell Burgess RN)2353 (Given - Provider: Donald Wilson RN) 0604 (Given - Provider: Donald Wilson RN)1200 (Due)1800 (Due) 650 mg, Oral, Every six hours, First dos e on Tue12/15/20 at 1800, Until Discontinued, Post - Op, Alternate with tramadol (ULTRAM); Total dose of acetaminophen from all acetaminophen containing products should not exceed 4 g (4000 mg) per day. 2336 (Given - Provider: Donald Wilson RN) aspirin enteric coated tablet 81 mg 09 (Given - Provider: Maribell Burgess RN) 0859 (Given - Provider: Maribell Burgess RN) 81 mg, Oral, DAILY, First dose on 09/07 at 0900, Until Discontinued, Tablet should be swallowed whole and not be divided, crushed or chewed. enoxaparin (LOVENOX) subcutaneous injection solution 4 0 mg (CANCELED) 823 (Given - Provider: Kristy Berrios RN) 40 mg, Subcutaneous, Daily, 28 doses, Fi rst dose on Tue12/16/20 at 0800, Last dose on Tue01/12/21 at 0800, Post - Op, Begin 0800 on first postop day. To avoid the loss of drug when using the 30 mg and 40 mg prefilled syringes, do not expel the air bubble from the syringe before the injection. For ADULT patients: Administration should be alternated between the left and right anterolateral and left and right posterolateral abdominal wall. Th e whole length of the needle should be introduced into a skin fold held between the thumb and forefinger; the skin fold should be held throughout the injection. T o minimize bruising, do not rub the inje ction site after completion of the injection. For PEDIATRIC patients: Administration should be alternated between appropriate sites for patient age/weight (inf ants/small children = upper thigh; older children/adolescents = left and right anterolateral and left and right posterolateral abdominal wall). During administration to infants/smaller children sometime s the whole length of the needle is not "introduced" during the injection. Administer injection into a skin fold held between the thumb and forefinger; the skin fold should be held throughout the inject ion. To minimize bruising, do not rub th e injection site after completion of the injection. furosemide (LASIX) tablet 40 mg 1153 (Given - Provider: Paulie Berrios RN) 09 (Given - Provider: Maribell Burgess RN) 0859 (Given - Provider: Maribell Burgess RN) 40 mg, Oral, DAILY, First dose on Tue12/16/20 at 1040, Until Disc ontinued melatonin tablet 3 mg 1953 (Given - Provider: Donald Wilson, ASHELY) 2041 (Given - Provider: Donald Wilson RN) 2099 (Due) 3 mg, Oral, Bedtime, First dose on Tue12/12/20 at 2345, Until Di scontinued metoprolol tartrate (LOPRESSOR) tablet 25 mg 0823 (Giv en - Provider: Kristy Berrios RN) 09 (Given - Provider: Maribell Burgess RN) 0859 (Given - Provider: Maribell Burgess RN) 25 mg, Oral, DAILY, First dose on Sat at 0900, Until Discontinued, Hold for SBP less than 100 Hold for HR less than 60 polyethylene glycol (MIRALAX) packet 1 packet 0824 (Gi irina - Provider: Kristy Berrios RN) 09 (Given - Provider: Maribell Burgess RN) 0900 (Given - Provider: Maribell Burgess, RN) 1 packet, Oral, Daily, First dose on Tue12/14/20 at 0900, Until Discontinued, Dissolve in 8 ounces of water, juice, soda, coffee, tea Do NOT give if patient on thickened liquids. Contact provider for alternative if needed. senna-docusate sodium (SENOKOT-S;PERICOLACE) tablet 2 tablet 24 (Given - Provider: Kristy Berrios RN)1953 (Given - Provider: Donald Wilson RN) 901 (Given - Provider: Maribell Burgess, RN)2040 (Given - Provider: Donald Wilson, ASHELY) 0900 (Given - Provider: Maribell Burgess RN)2099 (Due) 2 tablet, Oral, Two times a day, First d ose on 12/15/20 at 2100, Until Discontinued, Post - Op, Hold if 2 loose stools occur in the last 24 hours. sodium chloride 0.9% flush (adult) 10 mL 0830 (Given - Provider: Kristy Berrios RN)2100 (Due) 0856 (Given - Provider: Maribell Burgess, RN)2 042 (Given - Provider: Donald Wilson, ASHELY) 0902 (Given - Provider: Maribell Burgess, RN)2 100 (Due) 10 mL, IV, Two times a day and prn, Firs t dose on 12/13/20 at 0900, Until Discontinued, 10 mL, Flush PIV line as scheduled and as often as necessary before and after meds. Use a push / pause technique when flushing to create turbulence. traMADol (ULTRAM) tablet 50 mg(Linked Group 1) 0216 (G iven - Provider: Catherine Mays RN)0823 (Given - Provider: Kristy Berrios RN)1632 (Given - Provider: Kristy Berrios RN)195 (Given - Provider: Donald Wilson RN) 0315 (Given - Provider: Catherine Mays RN)0901 (Given - Provider: Maribell Burgess RN)1411 (Not Given - Provider: Maribell Burgess RN - Reason: Not Given - Comment: pt is not in pain and refuses pain medication)2040 (Given - Provider: Donald Wilson RN) 0413 (Given - Provider: Donald Wilson RN)0859 (Given - Provider: Maribell Burgess RN)1500 (Due - Provider: Ashley Felipe [facility])2100 (Due - Provider: Ashley Felipe [facility]) 50 mg, Oral, Every six hours, First dose on 12/15/20 at 1800, Until Discontinued, Post - Op, Alternate with acetaminophen (TYLENOL). Recommended maximum daily dose of traMADol is 400 mg. Recommende d maximum daily dose in patients greater than 75 years of age is 300 mg warfarin (COUMADIN) tablet 2.5 mg (COMPLETED) 901 (Given - Provider: Maribell Burgess RN) 2.5 mg, Oral, Warfarin one time dose, 1 dose, On [place] 12/18/20 at 1000, If patient is receiving tube feeding, hold tube feeding 1 hour before and 1 hour after warfarin administration. If unable to administ er dose intact, wear universal precautions (one pair of gloves). warfarin (COUMADIN) tablet 5 mg (COMPLETED) 102 (Give n - Provider: Kristy Berrios RN) 5 mg, Oral, Warfarin one time dose, 1 do se, On 12/16/20 at 1000, If patient is receiving tube feeding, hold tube feeding 1 hour before and 1 hour after warfarin administration. If unable to administer dose intact, wear universal precautions (one pair of gloves). warfarin (COUMADIN) tablet 5 mg (COMPLETED) 1137 (Given - Provider: Maribell Burgess, RN) 5 mg, Oral, Warfarin one time dose, 1 do se, On Tue12/17/20 at 1000, If patient is receiving tube feeding, hold tube feeding 1 hour before and 1 hour after warfarin administration. If unable to administer dose intact, wear universal precautions (one pair of gloves). Medication Order 12/16/2020 12/17/2020 12/18/2020 sodium chloride 0.9% IV solution (CANCELED) 0456 (New Bag - Provider: Catherine Mays RN) IV, at 100 mL/hr, Continuous, Starting o n Tue12/15/20 at 1225, Until Tue12/16/20 at 0835, 1,000 mL, Post - Op Medication Order 12/16/2020 12/17/2020 12/18/2020 bisacodyl (DULCOLAX) enteric coated tablet 5 mg 0859 (Given - Provider: Maribell Burgess RN) 5 mg, Oral, Two times a day prn, Startin g on Tue12/15/20 at 1219, Until Discontinued, constipation, Post - Op, SECOND choice or per patient preference calcium carbonate (TUMS) chewable tablet 1,000 mg 1,000 mg, Oral, Every four hours prn, St arting on Tue12/12/20 at 2342, Until Discontinued, other (Specify), acid reflux, Use FIRST for acid reflux. If ineffective after 60 minutes, may proceed to next choice option or, if no other options, contact provider. fentaNYL 100 mcg/2 mL preservative free injection solution 50 mc g 50 mcg, IV, Every thirty minutes prn, St arting on Tue12/15/20 at 1219, Until Discontinued, severe pain, 1 mL, Post - Op, If pain unrelieved by oxycodone for pain scale 7 or greater magnesium hydroxide (MILK OF MAGNESIA) oral suspension 30 mL 30 mL, Oral, Two times a day prn, Starti ng on Tue12/15/20 at 1219, Until Discontinued, constipation, 30 mL, Post - Op, FIRST choice or per patient preference nalOXone (NARCAN) injection solution (vial) 0.2 mg 0.2 mg, Injection, Every two minutes prn , Starting on Tue12/12/20 at 2339, Until Discontinued, other (Specify), opioid induced respiratory depression - PARTIAL reversal, 0.5 mL, PARTIAL REVERSAL/RESPIRA TORY DEPRESSION If respiratory rate less than 8/minute - call rapid response and administer (until respiratory rate increases to 10/minute). Give IV (preferred), IM or SUBQ nalOXone (NARCAN) injection solution (vial) 0.4 mg 0.4 mg, Injection, Every two minutes prn , Starting on Tue12/12/20 at 2339, Until Discontinued, other (Specify), opioid induced respiratory arrest - FULL reversal, 1 mL, FULL REVERSAL/RESPIRATORY ARREST If patient is not breathing - call CODE BLUE and administer. Give IV (preferred), IM or SUBQ ondansetron (ZOFRAN) injection solution 4 mg 1804 (Giv en - Provider: Ronel Dye RN) 4 mg, IV, Every four hours prn, Starting on Tue12/15/20 at 0922, Until Discontinued, nausea, vomiting, 2 mL, PACU - Continue Post-Op, Use FIRST for nausea/vomiting. If ineffective after 15 minutes use h aloperidol if ordered for nausea/vomitin g. If preference is to further dilute for IV administration: First draw up patient-specific dose, then dilute to 10 mL with 0.9% sodium chloride. oxyCODONE (OXY-IR) tablet 5-10 mg 5-10 mg, Oral, Every four hours prn, Sta rting on Tue12/15/20 at 1219, Until Discontinued, moderate pain, severe pain, Post - Op, For moderate pain scale rating of 4-6, give oxycodone 5 mg every 4 hours PRN For severe pain scale rating of 7 o r greater, give oxycodone 10 mg every 4 hours PRN Order Group 1: acetaminophen (TYLENOL) tablet 650 mgJump to med 650 mg, Oral, Every six hours, First dos e on Tue12/15/20 at 1800, Until Discontinued, Post - Op
Alternate with tramadol (ULTRAM); Total dose of acetaminophen from all acetam inophen containing products should not e xceed 4 g (4000 mg) per day.
And traMADol (ULTRAM) tablet 50 mgJump to med 50 mg, Oral, Every six hours, First dose on Tue12/15/20 at 1800, Until Discontinued, Post - Op
Alternate with acetaminophen (TYLENOL). Recommended maximum daily dose of traM ADol is 400 mg. Recommended maximum jules y dose in patients greater than 75 years of age is 300 mg
documented in this encounter
--- NOTE | 2020-12-19 08:41 | CR ---
[id number] RAD/RAD Chest PA or AP 1V EXAM: FRONTAL CHEST INDICATION: SOA/LUNG CRACKLES IN BASE. COMPARISON: None. DISCUSSION: Cardiomegaly with borderline central vascular congestion and small bilateral effusions. No focal infiltrates are identified. IMPRESSION: 1. Mild congestive heart failure. Prieto Reyes MD 12/19/20 0841 Thank you for allowing us to participate in the care of your patient.
[2020-12-19] MEDS ORDERED: [UNRECOGNIZED DRUG - OTHER] SCH (09:15)
[2020-12-19] MEDS: Warfarin 2.5 MG Tab PO SCH (09:28)
[2020-12-19] MEDS: Acetaminophen 325 MG Tab PO PRN ×3 (11:12→23:27)
[2020-12-20] MEDS: traMADol 50 MG Tab PO PRN ×3 (02:34→17:53)
[2020-12-20] MEDS: Acetaminophen 325 MG Tab PO PRN ×3 (05:34→20:11)
[2020-12-20] MEDS: Polyethylene Glycol 3350 Powder 17 GM Packet PO SCH (07:49)
[2020-12-20] MEDS: Metoprolol Tartrate 25 MG Tab PO SCH (07:49)
[2020-12-20] MEDS: Warfarin 2.5 MG Tab PO SCH (07:49)
[2020-12-20] MEDS: Aspirin 81 MG Tab.EC PO SCH (07:49)
[2020-12-20] MEDS: Beta-Carotene (Vitamin A) w/Vitamin C & E plus Minerals Tab PO SCH (07:50)
[2020-12-20] MEDS: Furosemide 40 MG Tab PO SCH (07:50)
[2020-12-20] MEDS: Spironolactone 25 MG Tab PO SCH (07:50)
[2020-12-21] MEDS: Acetaminophen 325 MG Tab PO PRN ×2 (03:16→20:49)
[2020-12-21] MEDS: traMADol 50 MG Tab PO PRN ×4 (05:49→17:47)
[2020-12-21] MEDS: Warfarin 2.5 MG Tab PO SCH (07:34)
[2020-12-21] MEDS: Polyethylene Glycol 3350 Powder 17 GM Packet PO SCH (07:34)
[2020-12-21] MEDS: Furosemide 40 MG Tab PO SCH (07:34)
[2020-12-21] MEDS: Aspirin 81 MG Tab.EC PO SCH (07:35)
[2020-12-21] MEDS: Beta-Carotene (Vitamin A) w/Vitamin C & E plus Minerals Tab PO SCH (07:35)
[2020-12-21] MEDS: Spironolactone 25 MG Tab PO SCH (07:35)
[2020-12-21] MEDS: Metoprolol Tartrate 25 MG Tab PO SCH (07:35)
[2020-12-21] MEDS ORDERED: Omeprazole 20 MG Cap.CR PO STA (11:15)
[2020-12-21] MEDS ORDERED: Simethicone 80 MG Tab.Chew PO STA (11:16)
[2020-12-21] MEDS ORDERED: Simethicone 80 MG Tab.Chew PO PRN (11:43)
[2020-12-21] MEDS: Simethicone 80 MG Tab.Chew PO PRN (17:46)
[2020-12-22] MEDS: traMADol 50 MG Tab PO PRN ×3 (00:05→22:38)
[2020-12-22] MEDS: Acetaminophen 325 MG Tab PO PRN (03:06)
[2020-12-22 07:50] LABS: ANION GAP 13.3 mmol/L (5-15)
[2020-12-22] MEDS ORDERED: Warfarin 5 MG Tab PO SCH (08:00)
[2020-12-22] MEDS: Beta-Carotene (Vitamin A) w/Vitamin C & E plus Minerals Tab PO SCH (08:13)
[2020-12-22] MEDS: Aspirin 81 MG Tab.EC PO SCH (08:13)
[2020-12-22] MEDS: Calcitriol 0.25 MCG Cap PO SCH (08:13)
[2020-12-22] MEDS: Polyethylene Glycol 3350 Powder 17 GM Packet PO SCH (08:13)
[2020-12-22] MEDS: Metoprolol Tartrate 25 MG Tab PO SCH (08:14)
[2020-12-22] MEDS: Spironolactone 25 MG Tab PO SCH (08:14)
[2020-12-22] MEDS: Furosemide 40 MG Tab PO SCH (08:14)
[2020-12-22] MEDS ORDERED: Sennosides 8.6 MG Tab PO PRN (09:07)
[2020-12-22] MEDS ORDERED: Warfarin 2.5 MG Tab PO SCH ×2 (20:00)
[2020-12-23] MEDS: traMADol 50 MG Tab PO PRN ×2 (05:36→21:41)
[2020-12-23] MEDS: Spironolactone 25 MG Tab PO SCH (07:59)
[2020-12-23] MEDS: Aspirin 81 MG Tab.EC PO SCH (08:00)
[2020-12-23] MEDS: Polyethylene Glycol 3350 Powder 17 GM Packet PO SCH (08:00)
[2020-12-23] MEDS: Beta-Carotene (Vitamin A) w/Vitamin C & E plus Minerals Tab PO SCH (08:00)
[2020-12-23] MEDS: Metoprolol Tartrate 25 MG Tab PO SCH (08:00)
[2020-12-23] MEDS: Furosemide 40 MG Tab PO SCH (08:00)
[2020-12-23] MEDS ORDERED: Furosemide 20 MG Tab PO ONE (08:55)
[2020-12-23] MEDS: Sennosides 8.6 MG Tab PO SCH ×2 (09:43→21:43)
--- NOTE | 2020-12-23 10:07 | PN ---
Progress Note for BRICE PALMER Date: 12/23/2020 Room #: VM.203 SUBJECTIVE: The patient has had some problems with burpiness, gassiness. He was placed on some simethicone. Also, we did add Senna Plus yesterday to patient's regime p.r.n., but I think it would be better to do it daily. The patient was seen by Speech and did have some slowness in swallowing but otherwise no concerns for aspiration. The patient does have a little bit of a phlegmy cough, he comments. OBJECTIVE: Vital Signs: His temperature is 36.4, pulse 100, blood pressure is 120/59, respirations are 17, and saturations are 100% on room air. Skin: [place], warm, and dry. Heart: Irregularly irregular. Lungs: Have inspiratory crackles on bases. Abdomen: Obese. Bowel sounds are present. Soft, nontender. Lower Extremities: Have no edema. Neurologic: Patient's speech is a little bit more clear. LABORATORY DATA: His lab work today shows an INR that is high at 5.2. Yesterday, his hemoglobin was 9.4 with 8.2 white blood cell count, platelet count is 231. Sodium is 144, potassium 4.3, creatinine 1.9, GFR of 34, glucose is 98, corrected calcium 9.4, magnesium 2.2, and albumin is 2.8. ProBNP is elevated at 11,163. IMPRESSION: 1. Deconditioning post left hip surgery. 2. Congestive heart failure exacerbation. 3. Anemia secondary to blood loss. 4. Hypocoagulable. 5. Chronic diastolic congestive heart failure. 6. Blindness. 7. Constipation. PLAN: We will hold patient's Coumadin today. Pharmacy is to be managing his INR. We will place him on a higher dose of Lasix of [address] him on scheduled Senna Plus. We will do daily weights on patient. We will recheck lab work on 12/26/2020. The patient is to continue to work with physical therapy as well as OT. We will have OT also attempt to do a Mini- Mental Status exam on patient to see about his cognition. Also, the patient's code level status has been changed to do not resuscitate/do not intubate by discussions with family and nurses, and this has been changed on 12/20/2020. GM12/23/2020 09:04:07 MODL: 12/23/2020 09:48:56 /[id number] MTDD
[2020-12-24] MEDS: Acetaminophen 325 MG Tab PO PRN (03:22)
[2020-12-24] MEDS: Calcitriol 0.25 MCG Cap PO SCH (08:48)
[2020-12-24] MEDS: Beta-Carotene (Vitamin A) w/Vitamin C & E plus Minerals Tab PO SCH (08:53)
[2020-12-24] MEDS: Polyethylene Glycol 3350 Powder 17 GM Packet PO SCH (08:53)
[2020-12-24] MEDS: Aspirin 81 MG Tab.EC PO SCH (08:53)
[2020-12-24] MEDS: Sennosides 8.6 MG Tab PO SCH ×2 (08:54→21:26)
[2020-12-24] MEDS: Metoprolol Tartrate 25 MG Tab PO SCH (08:55)
[2020-12-24] MEDS: Spironolactone 25 MG Tab PO SCH (08:55)
[2020-12-24] MEDS: Furosemide 20 MG Tab PO SCH (08:56)
[2020-12-24] MEDS: Melatonin 3 MG Tab PO SCH (21:25)
[2020-12-24] MEDS: traMADol 50 MG Tab PO PRN (21:26)
[2020-12-25] MEDS: Aspirin 81 MG Tab.EC PO SCH (07:28)
[2020-12-25] MEDS: Furosemide 20 MG Tab PO SCH (07:28)
[2020-12-25] MEDS: Metoprolol Tartrate 25 MG Tab PO SCH (07:29)
[2020-12-25] MEDS: Sennosides 8.6 MG Tab PO SCH ×2 (07:29→19:36)
[2020-12-25] MEDS: Beta-Carotene (Vitamin A) w/Vitamin C & E plus Minerals Tab PO SCH (07:29)
[2020-12-25] MEDS: Spironolactone 25 MG Tab PO SCH (07:31)
[2020-12-25] MEDS: Polyethylene Glycol 3350 Powder 17 GM Packet PO SCH (07:32)
[2020-12-25] MEDS: Melatonin 3 MG Tab PO SCH (19:36)
[2020-12-25] MEDS: Acetaminophen 325 MG Tab PO PRN (19:38)
[2020-12-25] MEDS: Warfarin 2.5 MG Tab PO SCH (19:39)
[2020-12-26 07:23] LABS: ANION GAP 15.8 mmol/L (5-15)
[2020-12-26] MEDS: Aspirin 81 MG Tab.EC PO SCH (07:55)
[2020-12-26] MEDS: Beta-Carotene (Vitamin A) w/Vitamin C & E plus Minerals Tab PO SCH (07:55)
[2020-12-26] MEDS: Calcitriol 0.25 MCG Cap PO SCH (07:56)
[2020-12-26] MEDS: Spironolactone 25 MG Tab PO SCH (07:56)
[2020-12-26] MEDS: Furosemide 20 MG Tab PO SCH (07:56)
[2020-12-26] MEDS: Sennosides 8.6 MG Tab PO SCH ×2 (07:57→19:45)
[2020-12-26] MEDS: Metoprolol Tartrate 25 MG Tab PO SCH (07:57)
[2020-12-26] MEDS: Warfarin 2.5 MG Tab PO SCH (19:45)
[2020-12-26] MEDS: Melatonin 3 MG Tab PO SCH (21:58)
[2020-12-27] MEDS: Spironolactone 25 MG Tab PO SCH (09:11)
[2020-12-27] MEDS: Beta-Carotene (Vitamin A) w/Vitamin C & E plus Minerals Tab PO SCH (09:11)
[2020-12-27] MEDS: Sennosides 8.6 MG Tab PO SCH ×2 (09:12→21:01)
[2020-12-27] MEDS: Aspirin 81 MG Tab.EC PO SCH (09:12)
[2020-12-27] MEDS: Metoprolol Tartrate 25 MG Tab PO SCH (09:13)
[2020-12-27] MEDS: Furosemide 20 MG Tab PO SCH (09:13)
[2020-12-27] MEDS: Acetaminophen 325 MG Tab PO PRN (09:14)
[2020-12-27] MEDS: Warfarin 2.5 MG Tab PO SCH (21:01)
[2020-12-27] MEDS: Melatonin 3 MG Tab PO SCH (21:02)
[2020-12-27] MEDS: traMADol 50 MG Tab PO PRN (21:03)
[2020-12-28] MEDS: Spironolactone 25 MG Tab PO SCH (09:22)
[2020-12-28] MEDS: Metoprolol Tartrate 25 MG Tab PO SCH (09:23)
[2020-12-28] MEDS: Beta-Carotene (Vitamin A) w/Vitamin C & E plus Minerals Tab PO SCH (09:25)
[2020-12-28] MEDS: Furosemide 20 MG Tab PO SCH (09:26)
[2020-12-28] MEDS: Aspirin 81 MG Tab.EC PO SCH (09:27)
[2020-12-28] MEDS: Acetaminophen 325 MG Tab PO PRN (09:27)
[2020-12-28] MEDS: Sennosides 8.6 MG Tab PO SCH ×2 (09:28→19:54)
[2020-12-28] MEDS: Simethicone 80 MG Tab.Chew PO PRN (18:05)
[2020-12-28] MEDS ORDERED: Ondansetron 4 MG Tab.DIS PO STA (18:18)
[2020-12-28] MEDS: Melatonin 3 MG Tab PO SCH (19:54)
[2020-12-28] MEDS: Warfarin 2.5 MG Tab PO SCH (19:55)
[2020-12-29] MEDS: Omeprazole 20 MG Cap.CR PO SCH (08:58)
[2020-12-29] MEDS: Furosemide 20 MG Tab PO SCH (08:58)
[2020-12-29] MEDS: Beta-Carotene (Vitamin A) w/Vitamin C & E plus Minerals Tab PO SCH (08:58)
--- NOTE | 2020-12-29 08:58 | PN ---
Progress Note for BRICE PALMER Date: 12/29/2020 Room #: VM.203 SUBJECTIVE: The patient has been having problems with more heartburn recently. It is better today. He is watching what he wants to the eat, but he is almost afraid to eat because of the amount of heartburn he has had. Otherwise, he feels that he is weaker, but actually he is progressing quite well with physical therapy. OBJECTIVE: Vital Signs: His temperature is 36.5; his weight was 92.8, which is down 6.6 kg from admission; blood pressure is 108/47; pulse is 67; saturations are 99; and respiratory rate 15. Heart: Regular rate. Lungs: Clear. Abdomen: Soft. Bowel sounds are present. He has occasionally gassy, he says. IMPRESSION: 1. Weakness secondary to hip surgery. 2. Left hip fracture. 3. Dyspepsia. 4. Congestive heart failure. 5. Anemia secondary to blood loss. 6. Hypocoagulable. 7. Chronic diastolic heart failure. 8. Blindness. PLAN: We will place the patient on Prilosec 20 mg daily to see if this helps with his stomach. He will continue with therapies. I am going for the rest of this week, so if he would be able to go home he would need to be seen by one of my partners. GM12/29/2020 08:39:32 MODL: 12/29/2020 08:48:34 /[id number]
[2020-12-29] MEDS: Spironolactone 25 MG Tab PO SCH (08:59)
[2020-12-29] MEDS: Sennosides 8.6 MG Tab PO SCH ×2 (08:59→20:17)
[2020-12-29] MEDS: Aspirin 81 MG Tab.EC PO SCH (09:00)
[2020-12-29] MEDS: Calcitriol 0.25 MCG Cap PO SCH (09:00)
[2020-12-29] MEDS: Metoprolol Tartrate 25 MG Tab PO SCH (09:00)
[2020-12-29] MEDS: Warfarin 2.5 MG Tab PO SCH (20:17)
[2020-12-29] MEDS: Melatonin 3 MG Tab PO SCH (20:17)
[2020-12-30] MEDS: Omeprazole 20 MG Cap.CR PO SCH (06:13)
[2020-12-30] MEDS: Aspirin 81 MG Tab.EC PO SCH (08:29)
[2020-12-30] MEDS: Spironolactone 25 MG Tab PO SCH (08:29)
[2020-12-30] MEDS: Sennosides 8.6 MG Tab PO SCH ×2 (08:29→20:05)
[2020-12-30] MEDS: Beta-Carotene (Vitamin A) w/Vitamin C & E plus Minerals Tab PO SCH (08:30)
[2020-12-30] MEDS: Furosemide 20 MG Tab PO SCH (08:30)
[2020-12-30] MEDS: Metoprolol Tartrate 25 MG Tab PO SCH (08:30)
[2020-12-30] MEDS: Warfarin 2.5 MG Tab PO SCH (20:04)
[2020-12-30] MEDS: traMADol 50 MG Tab PO PRN (20:04)
[2020-12-30] MEDS: Melatonin 3 MG Tab PO SCH (20:05)
[2020-12-31] MEDS: Omeprazole 20 MG Cap.CR PO SCH (06:37)
[2020-12-31] MEDS: Acetaminophen 325 MG Tab PO PRN (09:55)
[2020-12-31] MEDS: Furosemide 20 MG Tab PO SCH (09:55)
[2020-12-31] MEDS: Metoprolol Tartrate 25 MG Tab PO SCH (09:56)
[2020-12-31] MEDS: Spironolactone 25 MG Tab PO SCH (09:56)
[2020-12-31] MEDS: Sennosides 8.6 MG Tab PO SCH ×2 (09:57→20:20)
[2020-12-31] MEDS: Beta-Carotene (Vitamin A) w/Vitamin C & E plus Minerals Tab PO SCH (09:57)
[2020-12-31] MEDS: Aspirin 81 MG Tab.EC PO SCH (09:57)
[2020-12-31] MEDS: Calcitriol 0.25 MCG Cap PO SCH (09:57)
[2020-12-31] MEDS: Warfarin 2.5 MG Tab PO SCH (20:20)
[2020-12-31] MEDS: traMADol 50 MG Tab PO PRN (20:21)
[2020-12-31] MEDS: Melatonin 3 MG Tab PO SCH (20:21)
[2021-01-01] MEDS: Omeprazole 20 MG Cap.CR PO SCH (06:08)
[2021-01-01] MEDS: Aspirin 81 MG Tab.EC PO SCH (09:32)
[2021-01-01] MEDS: Beta-Carotene (Vitamin A) w/Vitamin C & E plus Minerals Tab PO SCH (09:32)
[2021-01-01] MEDS: Spironolactone 25 MG Tab PO SCH (09:33)
[2021-01-01] MEDS: Metoprolol Tartrate 25 MG Tab PO SCH (09:33)
[2021-01-01] MEDS: Furosemide 20 MG Tab PO SCH (09:33)
[2021-01-01] MEDS: Acetaminophen 325 MG Tab PO PRN (09:34)
[2021-01-01] MEDS: Sennosides 8.6 MG Tab PO SCH ×2 (09:36→19:51)
[2021-01-01] MEDS: Warfarin 2.5 MG Tab PO SCH (19:51)
[2021-01-01] MEDS: Melatonin 3 MG Tab PO SCH (19:52)
[2021-01-01] MEDS: traMADol 50 MG Tab PO PRN (19:52)
[2021-01-02] MEDS: Omeprazole 20 MG Cap.CR PO SCH (06:17)
[2021-01-02 06:22] VITALS: BP 118/64; PULSE 81
--- NOTE | 2021-01-02 08:13 | PCM.DCSUM1 ---
Discharge Summary - Hospital Course Free Text/Narrative:: [id number] Documentation Date of Encounter: 01/02/21 Patient's Name: Brian Kohli Date of : 1935 I certify that Brian Kohli is under my care and that I had a face to face encounter that meets the physician [id number] requirements on 01/02/21. The encounter with the patient was in part for the following medical condition, which is the primary reason for home health care: hip fracture s/p surgery. He needs PT for strengthening, balance, and gait training, shelter for medication instruction/compliance, and occupational therapy for strengthening. My clinical findings support the need for services because of inability to safely get to an outpatient facility for therapy due to fall risk, lack of muscle coordination and tone, balance issues, and weakness. Further, I certify that my clinical findings support that this patient is home bound because the patient requires use of an assistive device to ambulate and the assistance of another person to leave the home. I certify that Brian Kohli meets the homebound requirements for the payer source and has a need for intermittent shelter, PT, and OT services in the home for the diagnosis as listed above. These services will continue to be monitored by Dr. Orlando Bateman. This physician will periodically review and update the plan of care as required. Brief History: Mr. Kohli is an 85 yo male who was admitted to swing bed for strengthening prior to return home after he sustained a hip fracture that did require surgery. - Discharge Data Discharge Date: 01/02/21 Discharge Disposition: Home, Home Health Agency 06 Condition: Good - Referral to Home Health Date of Face to Face Encounter: 01/02/21 Reason for Homebound Status: Needs assistance to leave the home - uses a walker - decreased mobility related to recent fracture and surgery Primary Care Physician: Dayana Bateman MD Skilled Need: PT, OT, SN - Discharge Diagnosis/Problem(s) (1) Fracture of femoral neck, left SNOMED Code(s): 1318049, [id number] ICD Code: S72.002A - FRACTURE OF UNSP PART OF NECK OF LEFT FEMUR, INIT Status: Acute Current Visit: Yes Onset Date: ~12/12/20 Qualifiers: Encounter type: initial encounter Fracture type: closed Qualified Code(s): S72.002A - Fracture of unspecified part of neck of left femur, initial encounter for closed fracture (2) Anemia due to blood loss SNOMED Code(s): 469012827 ICD Code: D50.0 - IRON DEFICIENCY ANEMIA SECONDARY TO BLOOD LOSS (CHRONIC) Status: Acute Current Visit: Yes (3) Constipation SNOMED Code(s): 13366849 ICD Code: K59.00 - CONSTIPATION, UNSPECIFIED Status: Chronic Current Visit: Yes Qualifiers: Constipation type: unspecified constipation type Qualified Code(s): K59.00 - Constipation, unspecified (4) GERD (gastroesophageal reflux disease) SNOMED Code(s): 506262529 ICD Code: K21.9 - GASTRO-ESOPHAGEAL REFLUX DISEASE WITHOUT ESOPHAGITIS Status: Chronic Current Visit: Yes Qualifiers: Esophagitis presence: without esophagitis Qualified Code(s): K21.9 - Gastro-esophageal reflux disease without esophagitis (5) CKD stage G3b/A1, GFR 30-44 and albumin creatinine ratio <30 mg/g SNOMED Code(s): 388152943, 310645526, 237381597, 924266958 ICD Code: N18.32 - CHRONIC KIDNEY DISEASE, STAGE 3B Status: Chronic Current Visit: Yes (6) Chronic anticoagulation SNOMED Code(s): 464392511 ICD Code: Z79.01 - 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 HELPER (CURRENT) USE OF ANTICOAGULANTS Status: Chronic Current Visit: Yes (7) Chronic atrial fibrillation SNOMED Code(s): 068812149 ICD Code: I48.20 - CHRONIC ATRIAL FIBRILLATION, UNSPECIFIED Status: Chronic Current Visit: Yes (8) Chronic diastolic CHF (congestive heart failure) SNOMED Code(s): 480637667, 104807514 ICD Code: I50.32 - CHRONIC DIASTOLIC (CONGESTIVE) HEART FAILURE Status: Chronic Current Visit: Yes (9) Hypercholesteremia SNOMED Code(s): 00795308 ICD Code: E78.00 - PURE HYPERCHOLESTEROLEMIA, UNSPECIFIED Status: Chronic Current Visit: Yes (10) Hypertension, benign SNOMED Code(s): 05591625 ICD Code: I10 - ESSENTIAL (PRIMARY) HYPERTENSION Status: Chronic Current Visit: Yes (11) Legally blind SNOMED Code(s): 21420629 ICD Code: H54.8 - LEGAL BLINDNESS, DEFINED IN [place] Status: Chronic Current Visit: Yes Problem Details: right eye 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 vision, left eye has 20% vision - Patient Summary/Data Operative Procedure(s) Performed: none Complications: none Consults: Consultations 12/18/20 14:09 Consult to Case Management/Criminal Justice Teacher [CONS] Routine OT Evaluation and Treatment [CONS] Routine PT Evaluation and Treatment [CONS] Routine 12/18/20 17:24 Consult to Speech Language Pathology [STRETCHING PRESS OPERATOR Evaluation and Treatment] [CONS] Routine Labs Pending at D/C: none Recommended Follow-up Testing/Procedures: CBC, BMP with follow-up Planned Operative Procedure(s) after DC: none Hospital Course: The patient was admitted to swing bed and received therapies from PT and OT. He progressed well and is felt stable for d/c home with home health today. His hospitalization was complicated by GERD for which omeprazole was added with good results and constipation which resolved with oral medications as well. His hemoglobin and INR were monitored and stable. No other complications during his swing bed stay. He will be discharged home with home health. - Patient Instructions Diet: Usual Diet as Tolerated - Discharge Plan *PRESCRIPTION DRUG MONITORING PROGRAM REVIEWED*: No *COPY OF PRESCRIPTION DRUG MONITORING REPORT IN PATIENT DENICE: No Prescriptions/Med Rec: Omeprazole 20 mg PO DAILY@0700 #30 cap.cr Home Medications: Home Meds Acetaminophen 650 mg PO Q6H PRN 12/18/20 [History] Aspirin [Aspirin EC] 81 mg PO DAILY 12/18/20 [History] Furosemide 40 mg PO DAILY 12/18/20 [History] Lutein/Minerals/Vit A,C & E [Ocuvite] 1 tab PO DAILY 12/18/20 [History] Metoprolol Tartrate 25 mg PO DAILY 12/18/20 [History] Spironolactone [Aldactone] 12.5 mg PO DAILY 12/18/20 [History] Warfarin [Coumadin] 2.5 - 5 mg PO DAILY 12/18/20 [History] bisacodyL [Dulcolax] 5 mg PO DAILY PRN 12/18/20 [History] calcitrioL [Calcitriol] 0.25 mcg PO MOWEFR@0800 12/18/20 [History] polyethylene glycoL 3350 [Polyethylene Glycol 3350] 17 gm PO DAILY 12/18/20 [History] traMADol [Ultram] 50 mg PO Q6H PRN 12/18/20 [History] Omeprazole 20 mg PO DAILY@0700 #30 cap.cr 01/02/21 [Rx] - Discharge Summary/Plan Comment DC Time >30 min.: No - General Info Date of Service: 01/02/21 Subjective Update: Patient is feeling well this morning and is ready to go home today. Stomach is better with addition of omeprazole. Has not had a BM x 3 days. Otherwise ROS negative. - Review of Systems General: Reports: No Symptoms HEENT: Reports: No Symptoms Pulmonary: Reports: No Symptoms Cardiovascular: Reports: No Symptoms Gastrointestinal: Reports: No Symptoms Genitourinary: Reports: No Symptoms Musculoskeletal: Reports: No Symptoms Skin: Reports: No Symptoms Neurological: Reports: No Symptoms - Patient Data Vitals - Most Recent: Last Vital Signs Temp 36.4 C 01/02/21 06:00 Pulse 81 01/02/21 06:00 Resp 16 01/02/21 06:00 BP 118/64 01/02/21 06:00 Pulse Ox 99 01/02/21 06:00 Weight - Most Recent: 88.7 kg I&O - Last 24 hours: Intake & Output 01/01/21 01/02/21 01/02/21 22:59 06:59 14:59 Intake Total 360 Balance 360 Med Orders - Current: Current Medications Acetaminophen (Acetaminophen 325 Mg Tab) 650 mg PO Q6H PRN PRN Reason: Pain Last Admin: 01/01/21 09:34 Dose: 650 mg Documented by: Aspirin (Aspirin 81 Mg Tab.Ec) 81 mg PO DAILY [facility] Last Admin: 01/01/21 09:32 Dose: 81 mg Documented by: Bisacodyl (Bisacodyl 5 Mg Tab) 5 mg PO DAILY PRN PRN Reason: Constipation Calcitriol (Calcitriol 0.25 Mcg Cap) 0.25 mcg PO MOWEFR@0800 [facility] Last Admin: 12/31/20 09:57 Dose: 0.25 mcg Documented by: Furosemide (Furosemide 20 Mg Tab) 60 mg PO DAILY [facility] Last Admin: 01/01/21 09:33 Dose: 60 mg Documented by: Melatonin (Melatonin 3 Mg Tab) 6 mg PO BEDTIME [facility] Last Admin: 01/01/21 19:52 Dose: 6 mg Documented by: Metoprolol Tartrate (Metoprolol Tartrate 25 Mg Tab) 25 mg PO DAILY [facility] Last Admin: 01/01/21 09:33 Dose: 25 mg Documented by: Multivitamins/Minerals (Beta-Carotene (Vitamin A) W/Vitamin C & E Plus Minerals Tab) 1 tab PO DAILY [facility] Last Admin: 01/01/21 09:32 Dose: 1 tab Documented by: Omeprazole (Omeprazole 20 Mg Cap.Cr) 20 mg PO DAILY@0700 [facility] Last Admin: 01/02/21 06:17 Dose: 20 mg Documented by: Pharmacy Consult (Warfarin: Pharmacy Dose/Monitor) 1 each .XX ASDIRECTED [facility] Senna (Sennosides 8.6 Mg Tab) 8.6 mg PO BID [facility] Last Admin: 01/01/21 19:51 Dose: 8.6 mg Documented by: Simethicone (Simethicone 80 Mg Tab.Chew) 80 mg PO Q4H PRN PRN Reason: Gas Last Admin: 12/28/20 18:05 Dose: 80 mg Documented by: Spironolactone (Spironolactone 25 Mg Tab) 12.5 mg PO DAILY [facility] Last Admin: 01/01/21 09:33 Dose: 12.5 mg Documented by: Tramadol HCl (Tramadol 50 Mg Tab) 50 mg PO Q6H PRN PRN Reason: Pain Last Admin: 01/01/21 19:52 Dose: 50 mg Documented by: Warfarin Sodium (Warfarin 2.5 Mg Tab) 2.5 mg PO BEDTIME [facility] Last Admin: 01/01/21 19:51 Dose: 2.5 mg Documented by: Discontinued Medications Furosemide (Furosemide 40 Mg Tab) 40 mg PO DAILY [facility] Last Admin: 12/23/20 08:00 Dose: 40 mg Documented by: Furosemide (Furosemide 20 Mg Tab) 20 mg PO ONETIME ONE Stop: 12/23/20 08:56 Last Admin: 12/23/20 09:43 Dose: 20 mg Documented by: Omeprazole (Omeprazole 20 Mg Cap.Cr) 20 mg PO ONETIME STA Stop: 12/21/20 11:16 Last Admin: 12/21/20 11:44 Dose: 20 mg Documented by: Ondansetron HCl (Ondansetron 4 Mg Tab.Dis) 4 mg PO ONETIME STA Stop: 12/28/20 18:19 Last Admin: 12/28/20 18:54 Dose: 4 mg Documented by: Polyethylene Glycol (Polyethylene Glycol 3350 Powder 17 Gm Packet) 17 gm PO DAILY [facility] Stop: 12/25/20 08:01 Last Admin: 12/25/20 07:32 Dose: Not Given Documented by: Senna (Sennosides 8.6 Mg Tab) 8.6 mg PO BID PRN PRN Reason: Abdominal Pain Simethicone (Simethicone 80 Mg Tab.Chew) 80 mg PO ONETIME STA Stop: 12/21/20 11:17 Last Admin: 12/21/20 11:44 Dose: 80 mg Documented by: Simethicone (Simethicone 80 Mg Tab.Chew) 80 mg PO Q4H PRN PRN Reason: Gas Warfarin Sodium (Warfarin 2.5 Mg Tab) 2.5 mg PO SuTuThSa@0800 [facility] Last Admin: 12/21/20 07:34 Dose: 2.5 mg Documented by: Warfarin Sodium (Warfarin 5 Mg Tab) 5 mg PO MoWeFr@0800 [facility] Last Admin: 12/22/20 08:13 Dose: 5 mg Documented by: Warfarin Sodium (Warfarin 2.5 Mg Tab) 2.5 mg PO BEDTIME [facility] Warfarin Sodium (Warfarin 2.5 Mg Tab) 2.5 mg PO BEDTIME [facility] Last Admin: 12/22/20 20:45 Dose: 2.5 mg Documented by: Warfarin Sodium (Warfarin 2.5 Mg Tab) 2.5 mg PO 1999 [facility] Last Admin: 12/28/20 19:55 Dose: 2.5 mg Documented by: - Exam General: Reports: Alert, Oriented, Cooperative, No Acute Distress HEENT: Reports: Mucous Membr. Moist/[place] Neck: Reports: Supple, Trachea Midline, No Thyromegaly. Denies: Lymphadenopathy Lungs: Reports: Clear to Auscultation, Normal Respiratory Effort Cardiovascular: Reports: Regular Rate, Irregular Rhythm, Murmurs GI/Abdominal Exam: Normal Bowel Sounds, Soft, Non-Tender, No Organomegaly, No Distention, No Mass Extremities: Non-Tender, No Pedal Edema, Normal Capillary Refill Skin: Reports: Warm, Dry, Intact
[2021-01-02] MEDS ORDERED: Polyethylene Glycol 3350 Powder 17 GM Packet PO ONE (08:18)
[2021-01-02] MEDS: Spironolactone 25 MG Tab PO SCH (09:11)
[2021-01-02] MEDS: Furosemide 20 MG Tab PO SCH (09:11)
[2021-01-02] MEDS: Sennosides 8.6 MG Tab PO SCH (09:11)
[2021-01-02] MEDS: Aspirin 81 MG Tab.EC PO SCH (09:11)
[2021-01-02] MEDS: Beta-Carotene (Vitamin A) w/Vitamin C & E plus Minerals Tab PO SCH (09:12)
[2021-01-02] MEDS: Calcitriol 0.25 MCG Cap PO SCH (09:12)
[2021-01-02] MEDS: Metoprolol Tartrate 25 MG Tab PO SCH (09:12)
== END 2021-01-02 15:20 | disposition home health service (06) | DRG 560 ==
LOC: VM.MS 11:54
PROVIDERS: ADMIT Family Medicine; ATTEND Family Medicine
DX: S72.002D Fracture of unspecified part of neck of left femur, subsequent encounter for closed fracture with routine healing (principal); I48.20 Chronic atrial fibrillation, unspecified; I13.0 Hypertensive heart and chronic kidney disease with heart failure and stage 1 through stage 4 chronic kidney disease, or unspecified chronic kidney disease; I50.32 Chronic diastolic (congestive) heart failure; R53.81 Other malaise; D50.0 Iron deficiency anemia secondary to blood loss (chronic); K59.00 Constipation, unspecified; K21.9 Gastro-esophageal reflux disease without esophagitis; N18.32 Chronic kidney disease, stage 3b; E78.00 Pure hypercholesterolemia, unspecified; H54.8 Legal blindness, as defined in USA; Z96.642 Presence of left artificial hip joint; Z79.01 Long term (current) use of anticoagulants; Z79.899 Other long term (current) drug therapy
CPT/HCPCS: 36415; 71045; 80048; 80053; 81003; 83735; 83880; 85025; 85610; 92610-GN; 97110-GP; 97116-GP; 97161-GP; 97165-GO; 97535-GO; A9270-GY

== ENCOUNTER 2021-05-11 11:36 | Emergency (ER) | payer OTHER, MEDICARE ==
[2021-05-11] MEDS ORDERED: Sodium Chloride 0.9% 10 ML Syringe FLUSH PRN (11:43)
[2021-05-11] MEDS ORDERED: fentaNYL 50 MCG/ML SDV IVPUSH ONE (11:52)
[2021-05-11] MEDS ORDERED: Sodium Chloride 0.9% 1,000 ML IV SCH (12:00)
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
[2021-05-11 12:06] LABS: PTT,PARTIAL THROMBOPLSTIN TIME 30.5 SEC (25.6-32.8)
[2021-05-11 12:08] LABS: ANION GAP 15.3 mmol/L (5-15); CHLORIDE,CL 105 mmol/L (98-107); SODIUM,NA 143 mmol/L (136-145)
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
== END 2021-05-11 12:05 | disposition short-term general hospital (02) ==
LOC: VM.ED 11:36
DX: S01.81XA Laceration without foreign body of other part of head, initial encounter (principal); S40.012A Contusion of left shoulder, initial encounter; I48.91 Unspecified atrial fibrillation; I50.9 Heart failure, unspecified; Z79.01 Long term (current) use of anticoagulants; Z79.82 Long term (current) use of aspirin; Z79.899 Other long term (current) drug therapy; V23.4XXA Motorcycle driver injured in collision with car, pick-up truck or van in traffic accident, initial encounter; Y92.410 Unspecified street and highway as the place of occurrence of the external cause
CPT/HCPCS: 72170; 80053; 83735; 85025; 85610; 85730; 96374; 99283; 99285-25; J3010; J7030

== ENCOUNTER 2021-06-26 08:53 | Emergency (ER) | payer OTHER, MEDICARE ==
[2021-06-26] MEDS ORDERED: Acetaminophen/HYDROcodone 325-5 MG Tab PO ONE (08:55)
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
== END 2021-06-26 11:41 | disposition home or self-care (01) ==
LOC: VM.ED 08:53
DX: M54.50 Low back pain, unspecified (principal); I48.91 Unspecified atrial fibrillation; Z79.82 Long term (current) use of aspirin; Z79.01 Long term (current) use of anticoagulants; Z79.899 Other long term (current) drug therapy
CPT/HCPCS: 70450; 72100; 99284; A9270; 99283